=== PATIENT | female | born 1940 | race Two or more races ===

== ENCOUNTER 2019-03-24 10:50 | Inpatient (IN) | payer MEDICARE, OTHER ==
[~2019-03-24] VITALS: Ht 152.4 cm; Wt 91.6 kg
[2019-04-08 15:16] VITALS: BP 147/53
== END 2019-04-08 18:00 | disposition short-term general hospital (02) | DRG 56 ==
PROVIDERS: ADMIT Physical Medicine & Rehabilitation Pain Medicine; ATTEND Physical Medicine & Rehabilitation Pain Medicine
PROC: 02HV33Z Insertion of Infusion Device into Superior Vena Cava, Percutaneous Approach (ICD-10-PCS; principal; 2019-04-04)
PROC: B548ZZA Ultrasonography of Superior Vena Cava, Guidance (ICD-10-PCS; 2019-04-04)
DX: I69.398 Other sequelae of cerebral infarction (principal); I21.4 Non-ST elevation (NSTEMI) myocardial infarction; G93.41 Metabolic encephalopathy; I26.90 Septic pulmonary embolism without acute cor pulmonale; I13.0 Hypertensive heart and chronic kidney disease with heart failure and stage 1 through stage 4 chronic kidney disease, or unspecified chronic kidney disease; I50.32 Chronic diastolic (congestive) heart failure; N39.0 Urinary tract infection, site not specified; E46 Unspecified protein-calorie malnutrition; F33.2 Major depressive disorder, recurrent severe without psychotic features; K92.1 Melena; G93.49 Other encephalopathy; E03.9 Hypothyroidism, unspecified; E11.22 Type 2 diabetes mellitus with diabetic chronic kidney disease; E78.5 Hyperlipidemia, unspecified; I27.20 Pulmonary hypertension, unspecified; J45.909 Unspecified asthma, uncomplicated; I34.8 Other nonrheumatic mitral valve disorders; N18.9 Chronic kidney disease, unspecified; Z90.710 Acquired absence of both cervix and uterus; Z96.653 Presence of artificial knee joint, bilateral; Z90.49 Acquired absence of other specified parts of digestive tract; E11.649 Type 2 diabetes mellitus with hypoglycemia without coma; E11.65 Type 2 diabetes mellitus with hyperglycemia; E66.01 Morbid (severe) obesity due to excess calories; Z68.39 Body mass index [BMI] 39.0-39.9, adult; B96.89 Other specified bacterial agents as the cause of diseases classified elsewhere; R53.1 Weakness; B95.2 Enterococcus as the cause of diseases classified elsewhere; Z16.21 Resistance to vancomycin; D63.1 Anemia in chronic kidney disease; Z85.3 Personal history of malignant neoplasm of breast; Z79.02 Long term (current) use of antithrombotics/antiplatelets; Z79.82 Long term (current) use of aspirin; Z82.49 Family history of ischemic heart disease and other diseases of the circulatory system; Z91.81 History of falling
CPT/HCPCS: 36415; 70030-TC; 70450; 71045; 72170; 73551; 73590; 76770; 83550; 83690; 83735; 84100; 84443; 84480; 85025; 85730; 87040; 87077; 87086; 93005; 93307; 94640; 94660; 94664; A4217; A4663; J0696; J1644; J1650; J1815; J2020; J3590; J7050; J7060; J7512; J8499; Q9963

== ENCOUNTER 2019-04-08 18:16 | Inpatient (IN) | payer MEDICARE, OTHER ==
[~2019-04-08] VITALS: Ht 152.4 cm; Wt 93.4 kg
[2019-04-13 17:30] VITALS: BP 150/56
== END 2019-04-13 18:20 | DRG 291 ==
LOC: TELE3 18:16 → MEDSURG3 04-11 13:45
PROVIDERS: ADMIT Internal Medicine; ATTEND Internal Medicine Nephrology
PROC: 30233N1 Transfusion of Nonautologous Red Blood Cells into Peripheral Vein, Percutaneous Approach (ICD-10-PCS; principal; 2019-04-09)
DX: I13.0 Hypertensive heart and chronic kidney disease with heart failure and stage 1 through stage 4 chronic kidney disease, or unspecified chronic kidney disease (principal); I50.43 Acute on chronic combined systolic (congestive) and diastolic (congestive) heart failure; I33.0 Acute and subacute infective endocarditis; E43 Unspecified severe protein-calorie malnutrition; N39.0 Urinary tract infection, site not specified; Z68.41 Body mass index [BMI] 40.0-44.9, adult; G93.49 Other encephalopathy; N17.9 Acute kidney failure, unspecified; N18.9 Chronic kidney disease, unspecified; D63.1 Anemia in chronic kidney disease; D64.9 Anemia, unspecified; B95.2 Enterococcus as the cause of diseases classified elsewhere; Z16.21 Resistance to vancomycin; E11.65 Type 2 diabetes mellitus with hyperglycemia; E03.9 Hypothyroidism, unspecified; E11.22 Type 2 diabetes mellitus with diabetic chronic kidney disease; T14.8XXS Other injury of unspecified body region, sequela; W55.01XS Bitten by cat, sequela; E66.01 Morbid (severe) obesity due to excess calories; J45.909 Unspecified asthma, uncomplicated; Z85.3 Personal history of malignant neoplasm of breast; E11.649 Type 2 diabetes mellitus with hypoglycemia without coma; T38.0X5A Adverse effect of glucocorticoids and synthetic analogues, initial encounter; Y92.239 Unspecified place in hospital as the place of occurrence of the external cause; I69.898 Other sequelae of other cerebrovascular disease; B96.89 Other specified bacterial agents as the cause of diseases classified elsewhere; I27.20 Pulmonary hypertension, unspecified; Z86.79 Personal history of other diseases of the circulatory system; I34.2 Nonrheumatic mitral (valve) stenosis
CPT/HCPCS: 36415; 83735; 84100; 85025; 86850; 86900; 86901; 86920; 94640; 94660; G0378; J0696; J1815; J2020; J3490; J3590; J7050; J7060; J8499; P9016-BL; P9021

== ENCOUNTER 2019-04-13 18:17 | Inpatient (IN) | payer MEDICARE, OTHER ==
[~2019-04-13] VITALS: Ht 152.4 cm; Wt 87.1 kg
--- NOTE | 2019-04-13 18:15 | NUR ---
Admitted from Meds-surg 3rd floor for Endocarditis, UTI-VRE and CVA. Patient awake, alert x23-. With daughter at bedside. Patient informed of unit, therapy and oriented to call light light system. Not in any form of pain. No SOB or chest pains. Not in any form of distress. Resumed previous O2 at 2lpm/NC. Vital signs stable. Dr Clemente informed of admission.
[~2019-04-13 18:17] MED LIST: ALBU8.5H8 INH; ALEN70TA6 PO; AMLO10TA7 PO; ASPI-605 PO; ATOR10TA PO; BISA-79 PO; CALC-20 PO; CARV25TA PO; CEFT1FRO2 IV; CLON0.1T PO; CLOP75TA15 PO; CYCL30DR OP; DOCU100C36 PO; FERR325T28 PO; FLUT1DIS28 IH; FURO40TA5 PO; GABA600T12 PO; HYDR-4077 PO; INSU100V7 SQ; IPRA0.2S6 NEB; LEVO75TA7 PO; LISI10TA5 PO; PARO40TA4 PO; PRED20TA PO
[2019-04-13] MEDS ORDERED: MAGNESIUM HYDROXIDE 30 ML LIQUID UDC PO PRN (18:45)
[2019-04-13] MEDS ORDERED: DEXTROSE 50% 50 ML DISP.SYRIN IV PRN (18:45)
[2019-04-13 18:57] VITALS: BP 126/45
--- NOTE | 2019-04-13 19:00 | NUR ---
Dr. Mccray requested for medication reconciliation. Informed Dr that Hydralazine, Plavix, Prednisone and Restasis were on home medications but was not given in medical floor. Dr Mccray said to Hold medications until Dr Colon sees patient in AM.
--- NOTE | 2019-04-13 20:00 | NUR ---
Admitted patient from [facility] via bed accompanied by daughter. Awake and alert. No s/s of pain/discomforts presented. Routine admission care done. Plan of care initiated.
[2019-04-13] MEDS ORDERED: BISACODYL 5 MG TABLET.DR PO PRN (20:15)
[2019-04-13] MEDS ORDERED: CLOP75TA15 PO (20:33)
[2019-04-13 20:46] VITALS: BP 145/63
[2019-04-13] MEDS: ATORVASTATIN 10 MG TABLET PO SCH (21:11)
[2019-04-13] MEDS: CARVEDILOL 25 MG TABLET PO SCH (21:16)
[2019-04-13] MEDS: CALCIUM CARB/VITAMIN D 600-400 MG TABLET PO SCH (21:16)
[2019-04-13] MEDS: INSULIN GLARGINE,HUM 300 UNITS/3 ML CARTRIDGE SQ SCH (21:27)
[2019-04-13] MEDS: BLOOD SUGAR DIAGNOSTIC 1 EACH STRIP VI SCH (21:27)
[2019-04-13] MEDS: INSULIN REGULAR, HUMAN 300 UNITS/3 ML VIAL SQ PRN (21:29)
[2019-04-13] MEDS: CEFTRIAXONE 1 G in IV DEXTROSE 5% 50 ML IV SCH (22:26)
[2019-04-14] MEDS ORDERED: ALBUTEROL SULFATE 8 GM HFA.AER.AD INH SCH
[2019-04-14] MEDS: IPRATROPIUM BROMIDE 0.5 MG/2.5 ML NEBU NEB SCH ×4 (02:15→21:35)
[2019-04-14] MEDS: ALBUTEROL SULFATE 2.5 MG/3 ML NEBU NEB SCH ×4 (02:15→21:36)
[2019-04-14 05:29] VITALS: BP 166/65
[2019-04-14] MEDS: LEVOTHYROXINE SODIUM 75 MCG TABLET PO SCH (06:24)
[2019-04-14] MEDS: BLOOD SUGAR DIAGNOSTIC 1 EACH STRIP VI SCH ×4 (06:25→20:14)
--- NOTE | 2019-04-14 06:31 | NUR ---
Shift End Report: Slept well. No complaint presented. No s/s of hypo/hypertension, hypo/hyperglycemia noted. All needs attended and met. No significant event reported. Continue current rehab plan of care.
[2019-04-14] MEDS: ASPIRIN EC 81 MG TABLET.DR PO SCH (08:25)
[2019-04-14] MEDS: DOCUSATE SODIUM 100 MG CAPSULE PO SCH ×2 (08:25→16:57)
[2019-04-14] MEDS: AMLODIPINE 10 MG TABLET PO SCH (08:25)
[2019-04-14] MEDS: FLUTICASONE/VILANTEROL 1 EACH BLST.W.DEV INH SCH (08:25)
[2019-04-14] MEDS: FERROUS SULFATE 325 MG TABEC PO SCH ×2 (08:25→18:41)
[2019-04-14] MEDS: FUROSEMIDE 40 MG TABLET PO SCH (08:26)
[2019-04-14] MEDS: GABAPENTIN 300 MG CAPSULE PO SCH ×2 (08:26→16:55)
[2019-04-14] MEDS: CARVEDILOL 25 MG TABLET PO SCH ×2 (08:26→20:05)
[2019-04-14] MEDS: CALCIUM CARB/VITAMIN D 600-400 MG TABLET PO SCH ×2 (08:27→20:06)
[2019-04-14] MEDS: PAROXETINE HCL 20 MG TABLET PO SCH (08:27)
[2019-04-14] MEDS: LISINOPRIL 10 MG TABLET PO SCH ×2 (08:27→16:59)
[2019-04-14 08:46] VITALS: BP 172/70
[2019-04-14] MEDS ORDERED: CLOPIDOGREL 75 MG TABLET PO SCH (09:00)
[2019-04-14] MEDS ORDERED: FLUTICASONE/SALMETEROL 250/50 INHALER IH SCH (09:00)
[2019-04-14] MEDS: LINEZOLID 600 MG TABLET PO SCH ×2 (12:27→20:07)
[2019-04-14] MEDS: INSULIN REGULAR, HUMAN 300 UNIT/3 ML VIAL SQ PRN ×2 (12:30→17:00)
[2019-04-14 15:47] VITALS: BP 115/61
--- NOTE | 2019-04-14 19:10 | NUR ---
Patient calm and comfortable with no signs of distress; stable vital signs; medication compliant.
[2019-04-14] MEDS: ATORVASTATIN 10 MG TABLET PO SCH (20:04)
[2019-04-14 20:14] VITALS: BP 158/62
[2019-04-14] MEDS: INSULIN REGULAR, HUMAN 300 UNITS/3 ML VIAL SQ PRN (20:18)
[2019-04-14] MEDS: INSULIN GLARGINE,HUM 300 UNITS/3 ML CARTRIDGE SQ SCH (20:19)
--- NOTE | 2019-04-14 21:42 | NUR ---
awake alert and oriented x3-4 In good spirits. Daughter at bedside. VSS. Needs attended. Kept comfortable. Accucheck 208 @ 2100. 3units humalog given as coverage. Lantus also given as ordered. Fall precautions maintained. Call amos within reach. OOB to the BR with walker. Voiding freely. Left upper midline catheter intact, IV ABT given as scheduled. Needs attended. Compliant with meds. Fall precautions maintained. Siderails up for safety.
[2019-04-14] MEDS: CEFTRIAXONE 1 G in IV DEXTROSE 5% 50 ML IV SCH (22:39)
[2019-04-15] MEDS: ALBUTEROL SULFATE 2.5 MG/3 ML NEBU NEB SCH ×4 (02:03→20:18)
[2019-04-15] MEDS: IPRATROPIUM BROMIDE 0.5 MG/2.5 ML NEBU NEB SCH ×4 (02:03→20:18)
[2019-04-15 05:48] VITALS: BP 160/59
[2019-04-15] MEDS: LEVOTHYROXINE SODIUM 75 MCG TABLET PO SCH (06:07)
[2019-04-15] MEDS: BLOOD SUGAR DIAGNOSTIC 1 EACH STRIP VI SCH ×4 (06:33→21:00)
[2019-04-15 08:00] VITALS: BP 113/55
[2019-04-15] MEDS: DOCUSATE SODIUM 100 MG CAPSULE PO SCH ×2 (08:54→16:59)
[2019-04-15] MEDS: FLUTICASONE/VILANTEROL 1 EACH BLST.W.DEV INH SCH (08:54)
[2019-04-15] MEDS: ASPIRIN EC 81 MG TABLET.DR PO SCH (08:54)
[2019-04-15] MEDS: FUROSEMIDE 40 MG TABLET PO SCH (08:55)
[2019-04-15] MEDS: FERROUS SULFATE 325 MG TABEC PO SCH ×2 (08:55→16:59)
[2019-04-15] MEDS: GABAPENTIN 300 MG CAPSULE PO SCH ×2 (08:55→16:59)
[2019-04-15] MEDS: CALCIUM CARB/VITAMIN D 600-400 MG TABLET PO SCH ×2 (08:56→22:37)
[2019-04-15] MEDS: CARVEDILOL 25 MG TABLET PO SCH ×2 (08:58→22:36)
[2019-04-15] MEDS: LISINOPRIL 10 MG TABLET PO SCH ×2 (08:59→17:01)
[2019-04-15] MEDS: AMLODIPINE 10 MG TABLET PO SCH (09:00)
[2019-04-15] MEDS: PAROXETINE HCL 20 MG TABLET PO SCH (09:00)
[2019-04-15] MEDS: LINEZOLID 600 MG TABLET PO SCH ×2 (09:03→22:35)
--- NOTE | 2019-04-15 15:19 | NUR ---
INTERDISCIPLINARY TEAM CONFERENCE
[2019-04-15] MEDS: INSULIN REGULAR, HUMAN 300 UNIT/3 ML VIAL SQ PRN (17:00)
[2019-04-15 20:57] VITALS: BP 141/57
[2019-04-15] MEDS: ATORVASTATIN 10 MG TABLET PO SCH (22:36)
[2019-04-15] MEDS: INSULIN GLARGINE,HUM 300 UNITS/3 ML CARTRIDGE SQ SCH (22:53)
[2019-04-15] MEDS: INSULIN REGULAR, HUMAN 300 UNITS/3 ML VIAL SQ PRN (23:02)
[2019-04-15] MEDS: CEFTRIAXONE 1 G in IV DEXTROSE 5% 50 ML IV SCH (23:11)
[2019-04-16] MEDS: IPRATROPIUM BROMIDE 0.5 MG/2.5 ML NEBU NEB SCH ×4 (01:00→18:57)
[2019-04-16] MEDS: ALBUTEROL SULFATE 2.5 MG/3 ML NEBU NEB SCH ×4 (01:00→18:57)
[2019-04-16 05:54] VITALS: BP 133/68
[2019-04-16] MEDS: LEVOTHYROXINE SODIUM 75 MCG TABLET PO SCH (06:21)
[2019-04-16] MEDS: BLOOD SUGAR DIAGNOSTIC 1 EACH STRIP VI SCH ×4 (06:47→21:53)
--- NOTE | 2019-04-16 07:38 | NUR ---
Patient sleeping comfortably at this time, No acute distress noted. O2 NC in place at 2lpm with O2 Saturation of 95%. Breathing is even and unlabored. Patient noted with a Temp of 99. offered fluids and cooling measures. Due medications administered as ordered and scheduled. Blood sugar checked and within normal limit for patient. Pt. on continuous IV ATB therapy for VRE of urine with no adverse reaction noted. Monitored closely. Assisted with ADLs, needs attended, safety measures in place, call light at bed side, endorsed to next shift and will continue with care.
[2019-04-16 08:10] VITALS: BP 147/55
[2019-04-16] MEDS: ASPIRIN EC 81 MG TABLET.DR PO SCH (08:48)
[2019-04-16] MEDS: DOCUSATE SODIUM 100 MG CAPSULE PO SCH ×2 (08:48→16:56)
[2019-04-16] MEDS: FERROUS SULFATE 325 MG TABEC PO SCH ×2 (08:48→16:57)
[2019-04-16] MEDS: FLUTICASONE/VILANTEROL 1 EACH BLST.W.DEV INH SCH (08:48)
[2019-04-16] MEDS: CALCIUM CARB/VITAMIN D 600-400 MG TABLET PO SCH ×2 (08:48→21:41)
[2019-04-16] MEDS: GABAPENTIN 300 MG CAPSULE PO SCH ×2 (08:49→16:56)
[2019-04-16] MEDS: FUROSEMIDE 40 MG TABLET PO SCH (08:49)
[2019-04-16] MEDS: PAROXETINE HCL 20 MG TABLET PO SCH (08:49)
[2019-04-16] MEDS: LISINOPRIL 10 MG TABLET PO SCH ×2 (08:52→16:57)
[2019-04-16] MEDS: CARVEDILOL 25 MG TABLET PO SCH ×2 (08:53→21:42)
--- NOTE | 2019-04-16 11:22 | NUR ---
INDIVIDUALIZE PLAN OF CARE
[2019-04-16 15:53] VITALS: BP 160/68
[2019-04-16] MEDS: AMLODIPINE 10 MG TABLET PO SCH (16:55)
[2019-04-16 19:25] VITALS: BP 153/59
[2019-04-16] MEDS: ATORVASTATIN 10 MG TABLET PO SCH (21:41)
[2019-04-16] MEDS: INSULIN GLARGINE,HUM 300 UNITS/3 ML CARTRIDGE SQ SCH (21:55)
[2019-04-16] MEDS: INSULIN REGULAR, HUMAN 300 UNITS/3 ML VIAL SQ PRN (22:02)
--- NOTE | 2019-04-16 22:35 | NUR ---
Pt received awake, alert, and responsive on 2LPM Nasal cannula. Pt given Nebulizer treatments as ordered, Q6 with Albuterol/Atrovent. Treatments tolerated well, with no adverse reactions noted. Pt placed on CPAP 7 per MD orders. Pt tolerating settings well. No signs or symptoms of respiratory distress noted. Minimal leak achieved. Pt did not want to wear Protecta-Gel. Good skin integrity noted. No skin tears or breakdown. Alarm parameters checked, on and audible. CPAP plugged into red emergency outlet. Will continue to monitor Pt.
[2019-04-16] MEDS: CEFTRIAXONE 1 G in IV DEXTROSE 5% 50 ML IV SCH (23:32)
[2019-04-17] MEDS: ALBUTEROL SULFATE 2.5 MG/3 ML NEBU NEB SCH ×4 (01:34→19:04)
[2019-04-17] MEDS: IPRATROPIUM BROMIDE 0.5 MG/2.5 ML NEBU NEB SCH ×4 (01:35→19:04)
[2019-04-17 04:00] VITALS: BP 151/49
[2019-04-17] MEDS: LEVOTHYROXINE SODIUM 75 MCG TABLET PO SCH (06:47)
[2019-04-17 08:00] VITALS: BP 128/37
[2019-04-17] MEDS: FERROUS SULFATE 325 MG TABEC PO SCH ×2 (08:00→16:34)
[2019-04-17] MEDS: CALCIUM CARB/VITAMIN D 600-400 MG TABLET PO SCH ×2 (09:00→21:34)
[2019-04-17] MEDS: GABAPENTIN 300 MG CAPSULE PO SCH ×2 (09:00→16:33)
[2019-04-17] MEDS: AMLODIPINE 10 MG TABLET PO SCH (09:00)
[2019-04-17] MEDS: FUROSEMIDE 40 MG TABLET PO SCH ×2 (09:00→14:05)
[2019-04-17] MEDS: PAROXETINE HCL 20 MG TABLET PO SCH (09:00)
[2019-04-17] MEDS: CARVEDILOL 25 MG TABLET PO SCH ×3 (09:00→21:34)
[2019-04-17] MEDS: FLUTICASONE/VILANTEROL 1 EACH BLST.W.DEV INH SCH (09:00)
[2019-04-17] MEDS: DOCUSATE SODIUM 100 MG CAPSULE PO SCH ×2 (09:00→16:33)
[2019-04-17] MEDS: ASPIRIN EC 81 MG TABLET.DR PO SCH (09:00)
[2019-04-17] MEDS: LISINOPRIL 10 MG TABLET PO SCH ×3 (09:00→16:33)
[2019-04-17] MEDS: BLOOD SUGAR DIAGNOSTIC 1 EACH STRIP VI SCH ×3 (10:49→21:45)
--- NOTE | 2019-04-17 13:18 | NUR ---
in bed resting since this morning. allowing her to reccuperate from her hypoglycemic reaction this am. last blood sugar taken 1100 was 156. woke her for lunch now eating lunch now in bed feeing herself.
[2019-04-17 15:58] VITALS: BP 183/60
[2019-04-17] MEDS ORDERED: INSULIN GLARGINE,HUM 300 UNITS/3 ML CARTRIDGE SQ SCH (21:00)
[2019-04-17 21:03] VITALS: BP 157/54
[2019-04-17] MEDS: ATORVASTATIN 10 MG TABLET PO SCH (21:34)
[2019-04-17] MEDS: INSULIN REGULAR, HUMAN 300 UNITS/3 ML VIAL SQ PRN (21:55)
--- NOTE | 2019-04-17 22:10 | NUR ---
Pt placed on CPAP 7 per MD orders. Pt tolerating settings well. Pt did not want to wear Protecta-Gel. Good skin integrity noted, no redness or breakdown observed. Alarm parameters checked, functioning and audible. CPAP plugged into red emergency outlet. RN notified and aware. Will continue to monitor pt throughout shift.
[2019-04-17] MEDS: CEFTRIAXONE 1 G in IV DEXTROSE 5% 50 ML IV SCH (23:01)
[2019-04-18] MEDS: IPRATROPIUM BROMIDE 0.5 MG/2.5 ML NEBU NEB SCH ×4 (00:34→19:17)
[2019-04-18] MEDS: ALBUTEROL SULFATE 2.5 MG/3 ML NEBU NEB SCH ×4 (00:34→19:17)
[2019-04-18 04:00] VITALS: BP 150/68
[2019-04-18] MEDS: LEVOTHYROXINE SODIUM 75 MCG TABLET PO SCH (06:38)
[2019-04-18] MEDS: BLOOD SUGAR DIAGNOSTIC 1 EACH STRIP VI SCH ×4 (06:52→20:45)
[2019-04-18 08:11] VITALS: BP 166/68
[2019-04-18] MEDS ORDERED: FUROSEMIDE 40 MG/4 ML VIAL IV ONE (08:15)
[2019-04-18] MEDS ORDERED: ALBUTEROL SULFATE 2.5 MG/3 ML NEBU NEB PRN (08:15)
[2019-04-18] MEDS ORDERED: IPRATROPIUM BROMIDE 0.5 MG/2.5 ML NEBU NEB PRN (08:15)
--- NOTE | 2019-04-18 08:45 | NUR ---
Received patient asleep in bed. Mainly Setswana speaking but able to communicate basic needs. AAOx4. SOB noted with use of accessory muscles. AAOx4. Discussed patient's status last night with latrine cleaner RN. Councilman contacted. Seen by Dr. Lynne. Awaiting new orders. Midline on MAXIMILIANO intact and patent.
[2019-04-18] MEDS: GABAPENTIN 300 MG CAPSULE PO SCH ×2 (09:13→16:04)
[2019-04-18 09:14] LABS: ABG BASE EXCESS 8.3 mmol/L; ABG PCO2 47.6 mmHg (35.0-45.0); ABG PH 7.459 (7.350-7.450); ABG PO2 73.5 mmHg (75.0-100.0); ABG SITE RIGHT BRACHIAL; ABG TOTAL HEMOGLOBIN 8.4 G/dL (12.0-16.0); MetHb 0.3 % (0.0-1.5); O2Hb 93.5 % (94.0-97.0); VENT MODE Nasal Cannula
[2019-04-18] MEDS: ASPIRIN EC 81 MG TABLET.DR PO SCH (09:14)
[2019-04-18] MEDS: AMLODIPINE 10 MG TABLET PO SCH (09:14)
[2019-04-18] MEDS: FERROUS SULFATE 325 MG TABEC PO SCH ×2 (09:14→17:21)
[2019-04-18] MEDS: DOCUSATE SODIUM 100 MG CAPSULE PO SCH ×2 (09:14→16:07)
[2019-04-18] MEDS: LISINOPRIL 10 MG TABLET PO SCH ×2 (09:15→16:06)
[2019-04-18] MEDS: PAROXETINE HCL 20 MG TABLET PO SCH (09:15)
[2019-04-18] MEDS: CALCIUM CARB/VITAMIN D 600-400 MG TABLET PO SCH ×2 (09:16→20:35)
[2019-04-18] MEDS: FLUTICASONE/VILANTEROL 1 EACH BLST.W.DEV INH SCH (09:20)
[2019-04-18 09:29] LABS: EOSINOPHILS # (AUTO) 0.4 K/uL (0.0-0.7); EOSINOPHILS % (AUTO) 4.4 % (0.0-7.0); HEMOGLOBIN 7.9 g/dL (10.9-14.3); MONOCYTES # (AUTO) 0.7 K/uL (2.0-10.0)
[2019-04-18 09:36] LABS: BASOPHILS % (AUTO) 0.3 % (0.0-2.0); HEMATOCRIT 23.7 % (31.2-41.9); LYMPHOCYTES # (AUTO) 1.8 K/uL (20.0-40.0); LYMPHOCYTES % (AUTO) 19.4 % (20.5-51.5); MEAN CORPUSCULAR HEMOGLOBIN 31.5 uug (24.7-32.8); MEAN CORPUSCULAR HGB CONC 33 g/dL (32.3-35.6); MEAN CORPUSCULAR VOLUME 94.3 fL (75.5-95.3); NEUTROPHILS # (AUTO) 6.4 K/uL (1.8-8.9); NEUTROPHILS % (AUTO) 67.9 % (38.5-71.5); RED BLOOD CELL COUNT(AUTO) 2.51 MIL/uL (3.63-4.92)
[2019-04-18 09:37] LABS: PLATELET COUNT (AUTO) 205 K/uL (179-408); WHITE BLOOD COUNT (AUTO) 9.4 K/uL (3.8-11.8)
[2019-04-18 09:49] LABS: ALANINE AMINOTRANSFERASE 10 U/L (14-59); ALKALINE PHOSPHATASE 130 U/L (50-136); ASPARTATE AMINOTRANSFERASE 15 U/L (15-37); BILIRUBIN,TOTAL 0.4 mg/dL (0.2-1.0); CARBON DIOXIDE 34 mmol/L (21-32); CHLORIDE 106 mmol/L (98-107); CREATININE 1.4 mg/dL (0.6-1.3); GLUCOSE 72 mg/dL (74-106); MAGNESIUM 1.8 mg/dL (1.8-2.4); PHOSPHOROUS 3.1 mg/dL (2.5-4.9); POTASSIUM 3.4 mmol/L (3.5-5.1); TOTAL PROTEIN, SERUM 6.6 g/dL (6.4-8.2); UREA NITROGEN, BLOOD 25 mg/dL (7-18)
[2019-04-18] MEDS: CARVEDILOL 25 MG TABLET PO SCH ×2 (10:13→20:36)
--- NOTE | 2019-04-18 11:30 | NUR ---
Administered Lasix 40 mg IV push ONCE. Patient tolerating. Diuresing well. Patient no longer experiencing short of breath. Receiving 3L o2 via NC at this time. Participated in PT and tolerated well. Daughter at bedside. Safety and comfort measures implemented. Will continue to monitor closely.
[2019-04-18] MEDS: CLONIDINE HCL 0.1 MG TABLET PO PRN (16:06)
[2019-04-18 16:28] VITALS: BP 176/63
[2019-04-18] MEDS: INSULIN REGULAR, HUMAN 300 UNIT/3 ML VIAL SQ PRN (17:25)
[2019-04-18] MEDS: ATORVASTATIN 10 MG TABLET PO SCH (20:36)
[2019-04-18] MEDS: INSULIN GLARGINE,HUM 300 UNITS/3 ML CARTRIDGE SQ SCH (20:45)
[2019-04-18] MEDS: INSULIN REGULAR, HUMAN 300 UNITS/3 ML VIAL SQ PRN (20:47)
[2019-04-18 21:30] VITALS: BP 143/58
[2019-04-18] MEDS: CEFTRIAXONE 1 G in IV DEXTROSE 5% 50 ML IV SCH (22:53)
[2019-04-19] MEDS: IPRATROPIUM BROMIDE 0.5 MG/2.5 ML NEBU NEB SCH ×4 (01:15→22:42)
[2019-04-19] MEDS: ALBUTEROL SULFATE 2.5 MG/3 ML NEBU NEB SCH ×4 (01:15→22:42)
--- NOTE | 2019-04-19 04:30 | NUR ---
resting in bed upon initial rounds. awake alert and oriented x4. Patient on continous O2@ 3L via nasal cannula, pulse ox 96%. VSS. Bipap @ HS. Tolerated po meds well. Incontinent of bowel and bladder. BM noted (04/16) Fall precautions maintained. Siderails up for safety. Bed alarm on. Patient also on fall precautions. Accucheck @9pm was 231.right upper midline catheter intact, flushed and patent. Patient getting IV ABT through the left upper PICC line Tolerated well. No acute distress noted.
[2019-04-19 05:02] VITALS: BP 149/68
[2019-04-19] MEDS: LEVOTHYROXINE SODIUM 75 MCG TABLET PO SCH (06:24)
[2019-04-19] MEDS: BLOOD SUGAR DIAGNOSTIC 1 EACH STRIP VI SCH ×4 (06:34→21:04)
[2019-04-19 07:57] VITALS: BP 170/65
[2019-04-19] MEDS: INSULIN REGULAR, HUMAN 300 UNIT/3 ML VIAL SQ PRN ×3 (07:59→17:27)
[2019-04-19] MEDS: FERROUS SULFATE 325 MG TABEC PO SCH ×2 (08:01→17:09)
[2019-04-19] MEDS: AMLODIPINE 10 MG TABLET PO SCH (08:02)
[2019-04-19] MEDS: DOCUSATE SODIUM 100 MG CAPSULE PO SCH ×2 (08:02→17:09)
[2019-04-19] MEDS: ASPIRIN EC 81 MG TABLET.DR PO SCH (08:02)
[2019-04-19] MEDS: GABAPENTIN 300 MG CAPSULE PO SCH ×2 (08:02→17:09)
[2019-04-19] MEDS: FUROSEMIDE 40 MG TABLET PO SCH (08:02)
[2019-04-19] MEDS: CARVEDILOL 25 MG TABLET PO SCH ×2 (08:03→21:05)
[2019-04-19] MEDS: FLUTICASONE/VILANTEROL 1 EACH BLST.W.DEV INH SCH (08:03)
[2019-04-19] MEDS: CALCIUM CARB/VITAMIN D 600-400 MG TABLET PO SCH ×2 (08:03→21:05)
[2019-04-19] MEDS: LISINOPRIL 10 MG TABLET PO SCH ×2 (08:04→17:09)
[2019-04-19] MEDS: PAROXETINE HCL 20 MG TABLET PO SCH (08:04)
--- NOTE | 2019-04-19 08:45 | NUR ---
Received patient awake, alert x2-3, resting in bed with intact and patent PICC line over left upper arm, slushed accordingly. With O2 at 2LPM sating well at 99%. With some SOB, no chest pains noted. Not in any form of distress. Positioned in high pink's position. Instructed on breathing techniques. Will continue to monitor.
[2019-04-19] MEDS ORDERED: POTASSIUM CHLORIDE 20 MEQ TAB.PRT.SR PO ONE (09:30)
--- NOTE | 2019-04-19 11:00 | NUR ---
Up with occupational therapy, tolerated well. With relief of SOB. PICC line dressing changed, maintained sterile technique, no bleeding/ rashed over site noted. PICC line flushing well.
[2019-04-19 16:13] VITALS: BP 154/67
--- NOTE | 2019-04-19 19:50 | NUR ---
Received patient awake, alert and oriented x 3 with periodic forgetfulness. No c/o pain at this time. Isolation precautions maintained. No s/s of acute distress noted. Fall precautions maintained. Will continue to monitor.
[2019-04-19 19:56] VITALS: BP 160/52
[2019-04-19] MEDS: ATORVASTATIN 10 MG TABLET PO SCH (21:05)
[2019-04-19] MEDS: INSULIN GLARGINE,HUM 300 UNITS/3 ML CARTRIDGE SQ SCH (21:06)
[2019-04-19] MEDS: INSULIN REGULAR, HUMAN 300 UNITS/3 ML VIAL SQ PRN (21:09)
[2019-04-19] MEDS: CEFTRIAXONE 1 G in IV DEXTROSE 5% 50 ML IV SCH (23:07)
[2019-04-20] MEDS: IPRATROPIUM BROMIDE 0.5 MG/2.5 ML NEBU NEB SCH ×4 (02:07→20:04)
[2019-04-20] MEDS: ALBUTEROL SULFATE 2.5 MG/3 ML NEBU NEB SCH ×4 (02:07→20:04)
[2019-04-20] MEDS: ALENDRONATE SODIUM 70 MG TABLET PO SCH (05:41)
[2019-04-20] MEDS: BLOOD SUGAR DIAGNOSTIC 1 EACH STRIP VI SCH ×4 (05:43→21:39)
[2019-04-20 05:58] VITALS: BP 160/63
[2019-04-20] MEDS: LEVOTHYROXINE SODIUM 75 MCG TABLET PO SCH (06:18)
--- NOTE | 2019-04-20 07:04 | NUR ---
Patient slept throughout the shift. Prescribed medication given and pt tolerated it well. iv atb administered via left upper arm double lumen picc line. CPAP tolerated well throughout night and tolerated well. isolation precautions maintained. Pt shows no signs of acute distress. Safety and comfort provided. All needs are met. Will endorse to incoming nurse for continuity of care.
[2019-04-20 07:14] LABS: BASOPHILS % (AUTO) 0.3 % (0.0-2.0); EOSINOPHILS # (AUTO) 0.4 K/uL (0.0-0.7); EOSINOPHILS % (AUTO) 3.9 % (0.0-7.0); HEMATOCRIT 22.4 % (31.2-41.9); HEMOGLOBIN 7.6 g/dL (10.9-14.3); LYMPHOCYTES # (AUTO) 1.8 K/uL (20.0-40.0); LYMPHOCYTES % (AUTO) 19.4 % (20.5-51.5); MEAN CORPUSCULAR HGB CONC 34 g/dL (32.3-35.6); MEAN CORPUSCULAR VOLUME 96.8 fL (75.5-95.3); MONOCYTES # (AUTO) 0.9 K/uL (2.0-10.0); MONOCYTES % (AUTO) 9.4 % (0.0-11.0); NEUTROPHILS # (AUTO) 6.4 K/uL (1.8-8.9); PLATELET COUNT (AUTO) 221 K/uL (179-408); WHITE BLOOD COUNT (AUTO) 9.5 K/uL (3.8-11.8)
[2019-04-20 07:26] LABS: ALANINE AMINOTRANSFERASE 9 U/L (14-59); ALKALINE PHOSPHATASE 149 U/L (50-136); ASPARTATE AMINOTRANSFERASE 15 U/L (15-37); BILIRUBIN,TOTAL 0.4 mg/dL (0.2-1.0); CARBON DIOXIDE 32 mmol/L (21-32); CHLORIDE 102 mmol/L (98-107); CREATININE 1.5 mg/dL (0.6-1.3); GLUCOSE 179 mg/dL (74-106); MAGNESIUM 1.8 mg/dL (1.8-2.4); PHOSPHOROUS 3.4 mg/dL (2.5-4.9); POTASSIUM 3.6 mmol/L (3.5-5.1); TOTAL PROTEIN, SERUM 6.6 g/dL (6.4-8.2); UREA NITROGEN, BLOOD 31 mg/dL (7-18)
[2019-04-20 07:32] LABS: RED BLOOD CELL COUNT(AUTO) 2.31 MIL/uL (3.63-4.92)
[2019-04-20] MEDS: GABAPENTIN 300 MG CAPSULE PO SCH ×2 (08:42→17:45)
[2019-04-20] MEDS: FERROUS SULFATE 325 MG TABEC PO SCH ×2 (08:43→17:46)
[2019-04-20] MEDS: AMLODIPINE 10 MG TABLET PO SCH (08:43)
[2019-04-20] MEDS: ASPIRIN EC 81 MG TABLET.DR PO SCH (08:43)
[2019-04-20] MEDS: DOCUSATE SODIUM 100 MG CAPSULE PO SCH ×2 (08:43→17:46)
[2019-04-20] MEDS: FUROSEMIDE 40 MG TABLET PO SCH (08:43)
[2019-04-20] MEDS: PAROXETINE HCL 20 MG TABLET PO SCH (08:44)
[2019-04-20] MEDS: LISINOPRIL 10 MG TABLET PO SCH (08:45)
[2019-04-20] MEDS: CARVEDILOL 25 MG TABLET PO SCH ×2 (08:45→21:37)
[2019-04-20] MEDS: FLUTICASONE/VILANTEROL 1 EACH BLST.W.DEV INH SCH (08:46)
[2019-04-20] MEDS: CALCIUM CARB/VITAMIN D 600-400 MG TABLET PO SCH ×2 (08:46→21:31)
[2019-04-20] MEDS: INSULIN REGULAR, HUMAN 300 UNIT/3 ML VIAL SQ PRN ×3 (08:51→17:14)
[2019-04-20 09:17] VITALS: BP 181/58
--- NOTE | 2019-04-20 10:24 | NUR ---
rechecked vitals BP 140/56,pulse 69,resp 22,o2 sat at 2 liter 96%, patient noted with SOB, and wheezing, sitting upright, breathing tx administered by RT as ordered, inhaler administered as ordered, with some effectiveness, patient was able to tolerate all her meds, continue to monitor for SOB,and audible wheezing
[2019-04-20 11:00] VITALS: BP 140/56
[2019-04-20] MEDS ORDERED: methylPREDNISolone SOD SUCC 125 MG/2 ML VIAL IV SCH (11:45)
--- NOTE | 2019-04-20 12:52 | NUR ---
patient is examined by Dr Lynne and Dr Duenas with order to give lasix and steroids as ordered.
[2019-04-20] MEDS: FUROSEMIDE 40 MG/4 ML VIAL IV SCH ×2 (13:11→21:30)
[2019-04-20] MEDS: methylPREDNISolone SOD SUCC 40 MG/ML VIAL IV SCH ×2 (13:11→21:53)
--- NOTE | 2019-04-20 15:59 | NUR ---
PATIENT IS ALERT, ORIENTED X3, ROMANIAN SPEAKING, PATIENT PARTICIPATED WITH REHAB SERVICES, TOLERATED WELL, SOB AND AUDIBLE WHEEZING SUBSIDED, CONTINUOS ON O2 2 LITER VIA NASAL CANULA, PATIENT STATED SHE FEELS BETTER. KEPT CLEAN AND DRY, GOOD PERINEAL CARE PROVIDED, HAD BM TODAY.NO ACUTE DISTRESS NOTED AT THIS TIME, NOTED WITH +1 PITTING EDEMA TO BOTH LOWER EXTREMITIES. ELEVATED TOLERATED ON PILLOW, CONTINUE TO MONITOR
[2019-04-20] MEDS ORDERED: LISINOPRIL 10 MG TABLET PO SCH (17:00)
[2019-04-20] MEDS: LISINOPRIL 20 MG TABLET PO SCH (17:47)
[2019-04-20 19:40] VITALS: BP 105/75
[2019-04-20] MEDS ORDERED: methylPREDNISolone SOD SUCC 40 MG/ML VIAL IV SCH (21:00)
[2019-04-20] MEDS ORDERED: hydrALAZINE HCL 50 MG TABLET PO SCH (21:00)
[2019-04-20] MEDS: ATORVASTATIN 10 MG TABLET PO SCH (21:37)
[2019-04-20] MEDS: INSULIN GLARGINE,HUM 300 UNITS/3 ML CARTRIDGE SQ SCH (21:42)
[2019-04-20] MEDS: INSULIN REGULAR, HUMAN 300 UNITS/3 ML VIAL SQ PRN (21:46)
[2019-04-20] MEDS: CEFTRIAXONE 1 G in IV DEXTROSE 5% 50 ML IV SCH (23:15)
[2019-04-20] MEDS ORDERED: hydrALAZINE HCL 25 MG TABLET ONE (23:24)
--- NOTE | 2019-04-20 23:24 | NUR ---
Received patient in room sleeping easily arousable, Patient alert and oriented x3, Latvian speaking. on NC at 2lpm in NO acute distress, patient still noted with some wheezing on breathing treatment as ordered and effective. Blood sugar checked and wnl for patient. All due medications administered as ordered and scheduled and tolerated well. Patient monitored closely, skin kept clean and dry, call light left at bed side and will continue with care.
[2019-04-20] MEDS: hydrALAZINE HCL 25 MG TABLET PO SCH (23:30)
[2019-04-21] MEDS: ALBUTEROL SULFATE 2.5 MG/3 ML NEBU NEB SCH ×5 (01:26→23:43)
[2019-04-21] MEDS: IPRATROPIUM BROMIDE 0.5 MG/2.5 ML NEBU NEB SCH ×5 (01:26→23:44)
[2019-04-21 05:44] VITALS: BP 126/60
[2019-04-21] MEDS: methylPREDNISolone SOD SUCC 40 MG/ML VIAL IV SCH ×3 (05:55→21:46)
[2019-04-21] MEDS: LEVOTHYROXINE SODIUM 75 MCG TABLET PO SCH (06:00)
--- NOTE | 2019-04-21 07:00 | NUR ---
Patient A&O, No acute distress. Respiration is even and unlabored. Vital signs taken and stable for patient. Blood sugar checked and 412mg/dl, endorsed to next shift and will continue with care.
[2019-04-21] MEDS: BLOOD SUGAR DIAGNOSTIC 1 EACH STRIP VI SCH ×4 (07:09→22:00)
[2019-04-21 07:32] LABS: BASOPHILS % (AUTO) 0.1 % (0.0-2.0); HEMATOCRIT 22.9 % (31.2-41.9); HEMOGLOBIN 7.9 g/dL (10.9-14.3); LYMPHOCYTES # (AUTO) 0.9 K/uL (20.0-40.0); LYMPHOCYTES % (AUTO) 12.6 % (20.5-51.5); MEAN CORPUSCULAR HEMOGLOBIN 32.4 uug (24.7-32.8); MEAN CORPUSCULAR HGB CONC 35 g/dL (32.3-35.6); MEAN CORPUSCULAR VOLUME 94.1 fL (75.5-95.3); MONOCYTES # (AUTO) 0.2 K/uL (2.0-10.0); MONOCYTES % (AUTO) 2.3 % (0.0-11.0); NEUTROPHILS # (AUTO) 6.2 K/uL (1.8-8.9); PLATELET COUNT (AUTO) 205 K/uL (179-408); WHITE BLOOD COUNT (AUTO) 7.3 K/uL (3.8-11.8)
[2019-04-21] MEDS: INSULIN REGULAR, HUMAN 300 UNIT/3 ML VIAL SQ PRN ×3 (07:38→17:16)
[2019-04-21 07:41] LABS: RED BLOOD CELL COUNT(AUTO) 2.43 MIL/uL (3.63-4.92)
--- NOTE | 2019-04-21 07:42 | NUR ---
patient is laying in bed, awake, no sob, resp even nonlabored, not in any distress
--- NOTE | 2019-04-21 07:48 | NUR ---
patient blood sugar 391, insulin 15 units are administered, no distress noted, continue to monitor closely
[2019-04-21 07:51] LABS: CARBON DIOXIDE 34 mmol/L (21-32); CHLORIDE 101 mmol/L (98-107); CREATININE 1.5 mg/dL (0.6-1.3); PHOSPHOROUS 3.7 mg/dL (2.5-4.9); POTASSIUM 3.3 mmol/L (3.5-5.1); UREA NITROGEN, BLOOD 35 mg/dL (7-18)
[2019-04-21 07:55] LABS: GLUCOSE 420 mg/dL (74-106)
--- NOTE | 2019-04-21 08:00 | NUR ---
patient blood sugar result of [address] Gregory with order to increase Lantus to 16 units, continue to monitor, continue with moderate sliding scale. no acute distress noted at this time, no fruity breath noted.
[2019-04-21] MEDS: AMLODIPINE 10 MG TABLET PO SCH (08:19)
[2019-04-21] MEDS: DOCUSATE SODIUM 100 MG CAPSULE PO SCH ×2 (08:19→17:18)
[2019-04-21] MEDS: hydrALAZINE HCL 25 MG TABLET PO SCH ×2 (08:19→21:45)
[2019-04-21] MEDS: ASPIRIN EC 81 MG TABLET.DR PO SCH (08:19)
[2019-04-21 08:20] VITALS: BP 118/61
[2019-04-21] MEDS: FLUTICASONE/VILANTEROL 1 EACH BLST.W.DEV INH SCH (08:21)
[2019-04-21] MEDS: PAROXETINE HCL 20 MG TABLET PO SCH (08:21)
[2019-04-21] MEDS: CALCIUM CARB/VITAMIN D 600-400 MG TABLET PO SCH ×2 (08:21→21:45)
[2019-04-21] MEDS: FERROUS SULFATE 325 MG TABEC PO SCH ×2 (08:21→17:23)
[2019-04-21] MEDS: CARVEDILOL 25 MG TABLET PO SCH ×2 (08:22→21:45)
[2019-04-21] MEDS: LISINOPRIL 20 MG TABLET PO SCH ×2 (08:23→17:18)
[2019-04-21] MEDS ORDERED: POTASSIUM CHLORIDE 20 MEQ POWDER PACKET PO ONE (09:30)
[2019-04-21] MEDS ORDERED: POTASSIUM CHLORIDE 20 MEQ TAB.PRT.SR PO ONE ×2 (09:45→12:00)
[2019-04-21] MEDS: Z GUARD REMEDY PASTE 57 GM TUBE TOP PRN (10:09)
[2019-04-21] MEDS ORDERED: FUROSEMIDE 20 MG/2 ML VIAL IV ONE (10:15)
--- NOTE | 2019-04-21 16:02 | NUR ---
patient is alert, oriented x3-4, Irish speaking, no sob, resp even nonlabored, intermittent mild wheezing, on breathing tx, effective,skin warm and dry to touch, no acute distress noted, closely monitoring for blood sugar, continue to manage with sliding scale and diet, lasix IV administered as ordered, K replaced,
[2019-04-21] MEDS: CLONIDINE HCL 0.1 MG TABLET PO PRN (16:15)
[2019-04-21 16:26] VITALS: BP 177/58
[2019-04-21] MEDS: FUROSEMIDE 40 MG TABLET PO SCH (17:18)
[2019-04-21 20:59] VITALS: BP 150/47
[2019-04-21] MEDS ORDERED: INSULIN GLARGINE,HUM 300 UNITS/3 ML CARTRIDGE SQ SCH (21:00)
[2019-04-21] MEDS: ATORVASTATIN 10 MG TABLET PO SCH (21:44)
[2019-04-21] MEDS: INSULIN REGULAR, HUMAN 300 UNITS/3 ML VIAL SQ PRN (22:08)
[2019-04-21] MEDS: CEFTRIAXONE 1 G in IV DEXTROSE 5% 50 ML IV SCH (22:22)
[2019-04-22 06:00] VITALS: BP 149/44
[2019-04-22] MEDS: LEVOTHYROXINE SODIUM 75 MCG TABLET PO SCH (06:16)
[2019-04-22] MEDS: BLOOD SUGAR DIAGNOSTIC 1 EACH STRIP VI SCH ×4 (06:31→20:42)
[2019-04-22] MEDS: IPRATROPIUM BROMIDE 0.5 MG/2.5 ML NEBU NEB SCH ×4 (07:02→23:10)
[2019-04-22] MEDS: ALBUTEROL SULFATE 2.5 MG/3 ML NEBU NEB SCH ×4 (07:02→23:10)
[2019-04-22 07:06] LABS: BASOPHILS % (AUTO) 0.1 % (0.0-2.0); HEMATOCRIT 23.7 % (31.2-41.9); HEMOGLOBIN 7.7 g/dL (10.9-14.3); LYMPHOCYTES # (AUTO) 1.1 K/uL (20.0-40.0); LYMPHOCYTES % (AUTO) 9.2 % (20.5-51.5); MEAN CORPUSCULAR HEMOGLOBIN 30.8 uug (24.7-32.8); MEAN CORPUSCULAR HGB CONC 32 g/dL (32.3-35.6); MEAN CORPUSCULAR VOLUME 95.2 fL (75.5-95.3); MONOCYTES # (AUTO) 0.4 K/uL (2.0-10.0); MONOCYTES % (AUTO) 3.2 % (0.0-11.0); NEUTROPHILS # (AUTO) 10.7 K/uL (1.8-8.9); NEUTROPHILS % (AUTO) 87.5 % (38.5-71.5); PLATELET COUNT (AUTO) 225 K/uL (179-408)
--- NOTE | 2019-04-22 07:09 | NUR ---
118. patient slept well at night with CPAP, PICC line was flushed through both lumens. Good urine output. Comfort and safety measures are in place.
[2019-04-22 07:15] LABS: CARBON DIOXIDE 35 mmol/L (21-32); CHLORIDE 101 mmol/L (98-107); CREATININE 1.4 mg/dL (0.6-1.3); GLUCOSE 253 mg/dL (74-106); MAGNESIUM 2.1 mg/dL (1.8-2.4); PHOSPHOROUS 3.6 mg/dL (2.5-4.9); POTASSIUM 3.9 mmol/L (3.5-5.1); UREA NITROGEN, BLOOD 40 mg/dL (7-18)
[2019-04-22 07:24] LABS: RED BLOOD CELL COUNT(AUTO) 2.49 MIL/uL (3.63-4.92); WHITE BLOOD COUNT (AUTO) 12.2 K/uL (3.8-11.8)
[2019-04-22 08:00] VITALS: BP 174/76
[2019-04-22] MEDS: PAROXETINE HCL 20 MG TABLET PO SCH (08:20)
[2019-04-22] MEDS: ASPIRIN EC 81 MG TABLET.DR PO SCH (08:21)
[2019-04-22] MEDS: hydrALAZINE HCL 25 MG TABLET PO SCH ×2 (08:21→20:37)
[2019-04-22] MEDS: FERROUS SULFATE 325 MG TABEC PO SCH ×2 (08:21→17:15)
[2019-04-22] MEDS: AMLODIPINE 10 MG TABLET PO SCH (08:22)
[2019-04-22] MEDS: CARVEDILOL 25 MG TABLET PO SCH ×2 (08:22→20:38)
[2019-04-22] MEDS: CALCIUM CARB/VITAMIN D 600-400 MG TABLET PO SCH ×2 (08:22→20:38)
[2019-04-22] MEDS: LISINOPRIL 20 MG TABLET PO SCH ×2 (08:22→17:16)
[2019-04-22] MEDS: FUROSEMIDE 40 MG TABLET PO SCH ×2 (08:22→17:16)
[2019-04-22] MEDS: DOCUSATE SODIUM 100 MG CAPSULE PO SCH ×2 (08:22→17:16)
[2019-04-22] MEDS: methylPREDNISolone SOD SUCC 40 MG/ML VIAL IV SCH ×2 (08:23→20:33)
[2019-04-22] MEDS: FLUTICASONE/VILANTEROL 1 EACH BLST.W.DEV INH SCH (08:23)
[2019-04-22] MEDS ORDERED: FUROSEMIDE 40 MG/4 ML VIAL IV ONE (08:45)
[2019-04-22] MEDS: INSULIN REGULAR, HUMAN 300 UNIT/3 ML VIAL SQ PRN ×3 (11:31→20:56)
[2019-04-22 11:53] VITALS: BP 174/68
--- NOTE | 2019-04-22 12:47 | NUR ---
INTERDISCIPLINARY TEAM CONFERENCE
[2019-04-22 13:27] VITALS: BP 169/72
[2019-04-22 15:35] VITALS: BP 161/71
[2019-04-22] MEDS ORDERED: CEFEPIME HCL 1 G in IV DEXTROSE 5% 50 ML IV SCH (18:45)
--- NOTE | 2019-04-22 19:44 | NUR ---
CLINICAL PHARMACY NOTE:VANCOMYCIN DOSING Request for vancomycin dosing 78 y/o female 152.4cm 93.4 KG for documented infection Temp 981, BUN 40 Scr 1.4 WBC 1.2 also on Merrem Start vancomycin 1gm q24h. Estimated trough 14.82. Will order trough level prior to 4th dose. Will continue to monitor
[2019-04-22 20:18] VITALS: BP 127/70
[2019-04-22] MEDS: VANCOMYCIN IV 1,000 MG in IV DEXTROSE 5% 250 ML IV SCH (20:29)
[2019-04-22] MEDS: ATORVASTATIN 10 MG TABLET PO SCH (20:36)
[2019-04-22] MEDS: INSULIN GLARGINE,HUM 300 UNITS/3 ML CARTRIDGE SQ SCH (20:57)
[2019-04-22] MEDS ORDERED: MEROPENEM 0.5 G in IV NORMAL SALINE 50 ML IV SCH ×2 (21:00→22:00)
[2019-04-22] MEDS ORDERED: LINEZOLID 600 MG TABLET PO SCH (21:00)
[2019-04-22] MEDS: MEROPENEM 500 MG in IV NORMAL SALINE 50 ML IV SCH (21:29)
--- NOTE | 2019-04-23 04:11 | NUR ---
awake alert and oriented upon initial rounds. In good spirits. Daughter in to visit. On continous O2 @ 2L via nasal cannula. pulse ox 94%. Respiratory treatments given by therapist as scheduled and as needed. Lungs diminished. Left PICC intact flushed and patent, received Vancomycin and Merrem this shift. Tolerated well. No ill effects noted. OOB to the BR with moderate assist. SOB noted on exertion. BM noted this shift. Voiding as well. Denies any pain nor any discomfort. VSS. Due meds given as scheduled. Will monitor patient. Bipap at HS.
[2019-04-23 04:54] VITALS: BP 127/70
[2019-04-23] MEDS: LEVOTHYROXINE SODIUM 75 MCG TABLET PO SCH (06:34)
[2019-04-23] MEDS: BLOOD SUGAR DIAGNOSTIC 1 EACH STRIP VI SCH ×4 (06:38→20:33)
[2019-04-23] MEDS: IPRATROPIUM BROMIDE 0.5 MG/2.5 ML NEBU NEB SCH ×3 (07:34→21:32)
[2019-04-23] MEDS: ALBUTEROL SULFATE 2.5 MG/3 ML NEBU NEB SCH ×3 (07:34→21:32)
--- NOTE | 2019-04-23 08:00 | NUR ---
Received pt. resting in bed alert oriented x 3. IV in L upper arm double lumen PICC line. Pt. denies SOB/ difficulty breathing. Pt. denies pain or discomfort. Pt. on 2 L NC. Safety measures in place. Call light within reach. Will continue to monitor pt.
[2019-04-23] MEDS: FERROUS SULFATE 325 MG TABEC PO SCH ×2 (08:28→17:28)
[2019-04-23] MEDS: FUROSEMIDE 40 MG TABLET PO SCH ×2 (08:29→17:21)
[2019-04-23] MEDS: MEROPENEM 500 MG in IV NORMAL SALINE 50 ML IV SCH ×2 (08:29→21:32)
[2019-04-23] MEDS: DOCUSATE SODIUM 100 MG CAPSULE PO SCH ×2 (08:29→17:21)
[2019-04-23 08:32] VITALS: BP 190/86
[2019-04-23] MEDS: hydrALAZINE HCL 25 MG TABLET PO SCH ×2 (08:33→20:27)
[2019-04-23] MEDS: ASPIRIN EC 81 MG TABLET.DR PO SCH (08:33)
[2019-04-23] MEDS: methylPREDNISolone SOD SUCC 40 MG/ML VIAL IV SCH ×2 (08:34→20:24)
[2019-04-23] MEDS: PAROXETINE HCL 20 MG TABLET PO SCH (08:34)
[2019-04-23] MEDS: INSULIN REGULAR, HUMAN 300 UNIT/3 ML VIAL SQ PRN ×3 (08:43→17:06)
[2019-04-23] MEDS: AMLODIPINE 10 MG TABLET PO SCH (08:47)
[2019-04-23] MEDS: LISINOPRIL 20 MG TABLET PO SCH ×2 (08:47→17:21)
[2019-04-23] MEDS: CARVEDILOL 25 MG TABLET PO SCH ×2 (10:04→20:28)
[2019-04-23] MEDS: CALCIUM CARB/VITAMIN D 600-400 MG TABLET PO SCH ×2 (10:05→20:29)
[2019-04-23 10:27] VITALS: BP 128/46
--- NOTE | 2019-04-23 10:30 | NUR ---
Pt. had elevated BP at start of shift. BP 192/85. After all AM medication which included hypertension medication pt. blood pressure at 10 AM 169/55 and at 10:30 BP 128/46.
[2019-04-23] MEDS: FLUTICASONE/VILANTEROL 1 EACH BLST.W.DEV INH SCH (11:03)
--- NOTE | 2019-04-23 12:40 | NUR ---
CLINICAL PHARMACY NOTE:VANCOMYCIN DOSING To continue vancomycin dosing 78 y/o female 152.4cm 93.4 KG for documented infection Temp 97.7, BUN 40 (04/22) Scr 1.4 (04/22) WBC 1.2 (04/22) also on Merrem Will continue vancomycin 1gm q24h. Estimated trough 14.82. 2nd dose today at 2000. Will order trough level prior to 4th dose. Will continue to monitor
[2019-04-23 15:22] LABS: BASOPHILS # (AUTO) 0.1 K/uL (0.0-8.0); BASOPHILS % (AUTO) 0.5 % (0.0-2.0); HEMOGLOBIN 8.8 g/dL (10.9-14.3); LYMPHOCYTES # (AUTO) 0.9 K/uL (20.0-40.0); LYMPHOCYTES % (AUTO) 6.2 % (20.5-51.5); MEAN CORPUSCULAR HEMOGLOBIN 30.4 uug (24.7-32.8); MEAN CORPUSCULAR HGB CONC 33 g/dL (32.3-35.6); MEAN CORPUSCULAR VOLUME 93.7 fL (75.5-95.3); MONOCYTES # (AUTO) 0.9 K/uL (2.0-10.0); MONOCYTES % (AUTO) 6.4 % (0.0-11.0); NEUTROPHILS # (AUTO) 12.1 K/uL (1.8-8.9); NEUTROPHILS % (AUTO) 86.9 % (38.5-71.5); PLATELET COUNT (AUTO) 287 K/uL (179-408); RED BLOOD CELL COUNT(AUTO) 2.88 MIL/uL (3.63-4.92); WHITE BLOOD COUNT (AUTO) 13.9 K/uL (3.8-11.8)
[2019-04-23 15:32] LABS: CARBON DIOXIDE 33 mmol/L (21-32); CHLORIDE 99 mmol/L (98-107); CREATININE 1.5 mg/dL (0.6-1.3); GLUCOSE 249 mg/dL (74-106); POTASSIUM 3.6 mmol/L (3.5-5.1); UREA NITROGEN, BLOOD 48 mg/dL (7-18)
--- NOTE | 2019-04-23 15:59 | NUR ---
Around 2:30 PM pt. had unwitnessed fall in bathroom. Pt. denies any pain. Pt. is stable. Vital signs stable. Director, Locomotive Driver made aware. Incident report completed. Doctor Mahendra notified of pt.'s fall. No new orders. Will continue to monitor pt.
[2019-04-23 16:51] VITALS: BP 149/68
--- NOTE | 2019-04-23 18:43 | NUR ---
Pt. resting in bed AAO Throughout shift pt. had no acute distress or SOB. Pt. denies pain. VSS after scheduled hypertension medication was given. Pt compliant with all routine medication administration and cooperative with therapies as offered. Bed in locked and lowest position with bed alarm on. Call light within reach. All comfort and safety needs met promptly this shift. Will continue to monitor and endorse to oncoming warehouse shift supervisor.
[2019-04-23] MEDS: VANCOMYCIN IV 1,000 MG in IV DEXTROSE 5% 250 ML IV SCH (19:43)
[2019-04-23] MEDS: ATORVASTATIN 10 MG TABLET PO SCH (20:27)
[2019-04-23] MEDS: INSULIN REGULAR, HUMAN 300 UNITS/3 ML VIAL SQ PRN (20:36)
[2019-04-23] MEDS: INSULIN GLARGINE,HUM 300 UNITS/3 ML CARTRIDGE SQ SCH (20:37)
[2019-04-23 21:09] VITALS: BP 171/68
[2019-04-24] MEDS: IPRATROPIUM BROMIDE 0.5 MG/2.5 ML NEBU NEB SCH ×4 (01:14→19:36)
[2019-04-24] MEDS: ALBUTEROL SULFATE 2.5 MG/3 ML NEBU NEB SCH ×4 (01:14→19:37)
[2019-04-24 05:10] VITALS: BP 175/66
--- NOTE | 2019-04-24 05:48 | NUR ---
aaox3-4 on continous O2 @ 2L via nasal cannula. needs attended. VSS left upper PICC line intact both ports line opens flushes without difficulty. On ABT therapy, endocarditis. Tolerated well. No side effects noted. Continent of bowel and bladder.
[2019-04-24] MEDS: LEVOTHYROXINE SODIUM 75 MCG TABLET PO SCH (06:19)
[2019-04-24] MEDS: BLOOD SUGAR DIAGNOSTIC 1 EACH STRIP VI SCH ×4 (06:43→20:43)
[2019-04-24 08:00] VITALS: BP 185/74
[2019-04-24] MEDS: FERROUS SULFATE 325 MG TABEC PO SCH ×2 (08:04→17:31)
[2019-04-24] MEDS: methylPREDNISolone SOD SUCC 40 MG/ML VIAL IV SCH ×2 (08:05→20:44)
[2019-04-24] MEDS: MEROPENEM 500 MG in IV NORMAL SALINE 50 ML IV SCH ×2 (08:05→22:54)
[2019-04-24] MEDS: hydrALAZINE HCL 25 MG TABLET PO SCH (08:06)
[2019-04-24] MEDS: CALCIUM CARB/VITAMIN D 600-400 MG TABLET PO SCH ×2 (08:06→20:21)
[2019-04-24] MEDS: DOCUSATE SODIUM 100 MG CAPSULE PO SCH ×2 (08:07→17:31)
[2019-04-24] MEDS: ASPIRIN EC 81 MG TABLET.DR PO SCH (08:08)
[2019-04-24] MEDS: FUROSEMIDE 40 MG TABLET PO SCH ×2 (08:08→17:31)
[2019-04-24] MEDS: CARVEDILOL 25 MG TABLET PO SCH ×2 (08:08→20:22)
[2019-04-24] MEDS: PAROXETINE HCL 20 MG TABLET PO SCH (08:09)
[2019-04-24] MEDS: AMLODIPINE 10 MG TABLET PO SCH (08:09)
[2019-04-24] MEDS: LISINOPRIL 20 MG TABLET PO SCH ×2 (08:10→17:32)
--- NOTE | 2019-04-24 08:35 | NUR ---
CLINICAL PHARMACY NOTE:VANCOMYCIN DOSING To continue vancomycin dosing 78 y/o female 152.4cm 93.4 KG for documented infection Temp 98.2, BUN 40 (04/22) Scr 1.4 (04/22) WBC 1.2 (04/22) Will continue vancomycin 1gm q24h. Estimated trough 14.82. 3rd dose today at 1999. Will order trough level prior to 4th dose (not ordered yet). Will continue to monitor
[2019-04-24 08:41] LABS: BASOPHILS # (AUTO) 0.1 K/uL (0.0-8.0); BASOPHILS % (AUTO) 0.6 % (0.0-2.0); EOSINOPHILS % (AUTO) 0.1 % (0.0-7.0); HEMATOCRIT 25.7 % (31.2-41.9); HEMOGLOBIN 8.5 g/dL (10.9-14.3); LYMPHOCYTES # (AUTO) 1.6 K/uL (20.0-40.0); LYMPHOCYTES % (AUTO) 12.3 % (20.5-51.5); MEAN CORPUSCULAR HEMOGLOBIN 31.2 uug (24.7-32.8); MEAN CORPUSCULAR HGB CONC 33 g/dL (32.3-35.6); MEAN CORPUSCULAR VOLUME 94.4 fL (75.5-95.3); MONOCYTES # (AUTO) 1.2 K/uL (2.0-10.0); NEUTROPHILS # (AUTO) 10.1 K/uL (1.8-8.9); PLATELET COUNT (AUTO) 274 K/uL (179-408); RED BLOOD CELL COUNT(AUTO) 2.73 MIL/uL (3.63-4.92)
[2019-04-24 08:44] LABS: CREATININE 1.3 mg/dL (0.6-1.3); POTASSIUM 3.1 mmol/L (3.5-5.1)
[2019-04-24] MEDS: FLUTICASONE/VILANTEROL 1 EACH BLST.W.DEV INH SCH (09:15)
[2019-04-24 09:41] LABS: BAND % (MANUAL) 2 % (0-10); LYMPHOCYTES % (MANUAL) 18 % (20-40); MONOCYTES % (MANUAL) 8 % (2-10); NEUTROPHILS % (MANUAL) 72 % (42-75)
[2019-04-24] MEDS: INSULIN REGULAR, HUMAN 300 UNIT/3 ML VIAL SQ PRN ×2 (11:51→17:31)
[2019-04-24] MEDS ORDERED: POTASSIUM CHLORIDE 20 MEQ TAB.PRT.SR PO ONE (12:15)
[2019-04-24 16:46] VITALS: BP 173/0
[2019-04-24 19:35] VITALS: BP 180/67
[2019-04-24] MEDS: ATORVASTATIN 10 MG TABLET PO SCH (20:22)
[2019-04-24] MEDS: hydrALAZINE HCL 50 MG TABLET PO SCH (20:22)
[2019-04-24] MEDS: INSULIN GLARGINE,HUM 300 UNITS/3 ML CARTRIDGE SQ SCH (20:36)
[2019-04-24] MEDS: INSULIN REGULAR, HUMAN 300 UNITS/3 ML VIAL SQ PRN (20:41)
[2019-04-24] MEDS ORDERED: hydrALAZINE HCL 25 MG TABLET PO SCH (21:00)
[2019-04-24] MEDS: VANCOMYCIN IV 1,000 MG in IV DEXTROSE 5% 250 ML IV SCH (21:06)
[2019-04-25] MEDS: IPRATROPIUM BROMIDE 0.5 MG/2.5 ML NEBU NEB SCH ×4 (01:05→19:30)
[2019-04-25] MEDS: ALBUTEROL SULFATE 2.5 MG/3 ML NEBU NEB SCH ×4 (01:05→19:30)
--- NOTE | 2019-04-25 04:22 | NUR ---
Patient received in bed, AAO x3. Not in acute distress or SOB. Able to make needs known. On 2 L O2 via NC. No complain of pain. Kinyarwanda speaking. Picc line on her left upper, no sign of inflammation. All due medication given and well tolerated. IV antibiotics administered. Accucheck @2100 BS: 247 covered by 4 units insulin based on the sliding scale. All needs attended promptly. Physical assessment done. Fall prevention observed. Safety measures maintained. Bed in low and lock position, alarm on, side rails up x2 for safety. Educated patient to use call light. Call light and frequently used items within reach. Continue to monitor and will endorse to the day shift nurse accordingly.
[2019-04-25] MEDS: LEVOTHYROXINE SODIUM 75 MCG TABLET PO SCH (06:00)
[2019-04-25 06:23] VITALS: BP 136/73
[2019-04-25] MEDS: BLOOD SUGAR DIAGNOSTIC 1 EACH STRIP VI SCH ×4 (06:40→21:32)
--- NOTE | 2019-04-25 08:20 | NUR ---
CLINICAL PHARMACY NOTE:VANCOMYCIN DOSING S: To continue vancomycin dosing 78 y/o female for documented infection (per ID note for for concern of HCAP) O: Temp 98.3, BUN 43 (04/24) Scr 1.3 (04/24) WBC 13 (04/24) ht 152.4cm wt 93.4 KG Plan Will continue same dose of vancomycin 1gm IVPB q24h for today. Will order trough level prior to 4th dose (ordered for today at 1930).Pharmacy shall review the level when available and adjust the dose if needed. Will continue to monitor Addendum: 04/25/19 at 2012 by CHUNG RUBY VANCOMYCIN TROUGH LEVEL 13.8 CONTINUE SAME DOSE OF VANCOMYCIN 1GM Q24H
[2019-04-25] MEDS: FUROSEMIDE 40 MG TABLET PO SCH ×2 (08:24→17:21)
[2019-04-25] MEDS: ASPIRIN EC 81 MG TABLET.DR PO SCH (08:24)
[2019-04-25] MEDS: FERROUS SULFATE 325 MG TABEC PO SCH ×2 (08:24→17:22)
[2019-04-25] MEDS: AMLODIPINE 10 MG TABLET PO SCH (08:24)
[2019-04-25] MEDS: DOCUSATE SODIUM 100 MG CAPSULE PO SCH ×2 (08:24→17:21)
[2019-04-25] MEDS: hydrALAZINE HCL 50 MG TABLET PO SCH ×2 (08:24→21:29)
[2019-04-25] MEDS: FLUTICASONE/VILANTEROL 1 EACH BLST.W.DEV INH SCH (08:25)
[2019-04-25] MEDS: methylPREDNISolone SOD SUCC 40 MG/ML VIAL IV SCH (08:25)
[2019-04-25] MEDS: CALCIUM CARB/VITAMIN D 600-400 MG TABLET PO SCH ×2 (08:26→21:28)
[2019-04-25] MEDS: PAROXETINE HCL 20 MG TABLET PO SCH (08:26)
[2019-04-25] MEDS: LISINOPRIL 20 MG TABLET PO SCH ×2 (08:27→17:00)
[2019-04-25] MEDS: CARVEDILOL 25 MG TABLET PO SCH ×2 (08:27→21:29)
[2019-04-25] MEDS: MEROPENEM 500 MG in IV NORMAL SALINE 50 ML IV SCH ×2 (08:28→21:57)
[2019-04-25 08:29] VITALS: BP 177/55
[2019-04-25] MEDS: INSULIN REGULAR, HUMAN 300 UNIT/3 ML VIAL SQ PRN ×3 (08:30→17:29)
--- NOTE | 2019-04-25 08:45 | NUR ---
Received patient, awake ,alert x2-3. With periods of forgetfulness. Intact and patent left upper arm midline, flushing well. Not in any form of distress with O2 at 2lpm/NC. Denies any pain.
--- NOTE | 2019-04-25 13:00 | NUR ---
With family at bed side. Tolerated therapy well. No pain noted. Tapered O2 at 1lpm. Tolerating well. No SOB or chest pains noted sating at 99%.
[2019-04-25 16:32] VITALS: BP 117/51
--- NOTE | 2019-04-25 19:30 | NUR ---
Alert and oriented x 3-4. Received in bed, resting. On 0.5 L of O2 via NC. Left sided PICC line intact and flushable. On ATB for pneumonia and endocarditis. Side rails up bilaterally. Call light and frequently used times within reach. Will continue to monitor.
[2019-04-25 20:06] VITALS: BP 130/42
[2019-04-25] MEDS: VANCOMYCIN IV 1,000 MG in IV DEXTROSE 5% 250 ML IV SCH (20:23)
[2019-04-25] MEDS: ATORVASTATIN 10 MG TABLET PO SCH (21:28)
[2019-04-25] MEDS: INSULIN REGULAR, HUMAN 300 UNITS/3 ML VIAL SQ PRN (21:31)
[2019-04-25] MEDS: INSULIN GLARGINE,HUM 300 UNITS/3 ML CARTRIDGE SQ SCH (21:32)
--- NOTE | 2019-04-25 22:25 | NUR ---
Due to MD order pt placed on CPAP7. No s/s of respiratory distress noted. CPAP settings pt tolerated well. Alarms checked and reset. RN aware.
--- NOTE | 2019-04-26 00:50 | NUR ---
[facility] RN notified RT that she took pt off CPAP per pt's request.
[2019-04-26] MEDS: ALBUTEROL SULFATE 2.5 MG/3 ML NEBU NEB SCH ×4 (01:40→19:14)
[2019-04-26] MEDS: IPRATROPIUM BROMIDE 0.5 MG/2.5 ML NEBU NEB SCH ×4 (01:40→19:14)
[2019-04-26 05:17] VITALS: BP 161/43
[2019-04-26] MEDS: LEVOTHYROXINE SODIUM 75 MCG TABLET PO SCH (06:16)
[2019-04-26] MEDS: BLOOD SUGAR DIAGNOSTIC 1 EACH STRIP VI SCH ×4 (06:37→20:34)
[2019-04-26 06:42] LABS: BASOPHILS # (AUTO) 0.1 K/uL (0.0-8.0); BASOPHILS % (AUTO) 0.3 % (0.0-2.0); EOSINOPHILS # (AUTO) 0.3 K/uL (0.0-0.7); EOSINOPHILS % (AUTO) 1.6 % (0.0-7.0); HEMATOCRIT 29.7 % (31.2-41.9); HEMOGLOBIN 9.7 g/dL (10.9-14.3); LYMPHOCYTES # (AUTO) 2.3 K/uL (20.0-40.0); LYMPHOCYTES % (AUTO) 13.1 % (20.5-51.5); MEAN CORPUSCULAR HEMOGLOBIN 30.4 uug (24.7-32.8); MEAN CORPUSCULAR HGB CONC 33 g/dL (32.3-35.6); MEAN CORPUSCULAR VOLUME 93.4 fL (75.5-95.3); MONOCYTES # (AUTO) 1.6 K/uL (2.0-10.0); MONOCYTES % (AUTO) 8.7 % (0.0-11.0); NEUTROPHILS # (AUTO) 13.7 K/uL (1.8-8.9); NEUTROPHILS % (AUTO) 76.3 % (38.5-71.5); PLATELET COUNT (AUTO) 324 K/uL (179-408); RED BLOOD CELL COUNT(AUTO) 3.18 MIL/uL (3.63-4.92); WHITE BLOOD COUNT (AUTO) 17.9 K/uL (3.8-11.8)
[2019-04-26] MEDS: Z GUARD REMEDY PASTE 57 GM TUBE TOP PRN (06:48)
[2019-04-26 06:51] LABS: CHLORIDE 101 mmol/L (98-107); CREATININE 1.3 mg/dL (0.6-1.3); GLUCOSE 76 mg/dL (74-106); MAGNESIUM 1.9 mg/dL (1.8-2.4); PHOSPHOROUS 3.4 mg/dL (2.5-4.9); UREA NITROGEN, BLOOD 41 mg/dL (7-18)
[2019-04-26 06:53] LABS: CARBON DIOXIDE 40 mmol/L (21-32); POTASSIUM 2.7 mmol/L (3.5-5.1)
[2019-04-26 07:30] VITALS: BP 156/63
[2019-04-26 07:41] LABS: EOSINOPHILS % (MANUAL) 1 % (0-8); LYMPHOCYTES % (MANUAL) 12 % (20-40); MONOCYTES % (MANUAL) 14 % (2-10); NEUTROPHILS % (MANUAL) 73 % (42-75)
[2019-04-26] MEDS ORDERED: methylPREDNISolone SOD SUCC 40 MG/ML VIAL IV SCH (09:00)
[2019-04-26] MEDS: FUROSEMIDE 40 MG TABLET PO SCH ×2 (09:01→17:23)
[2019-04-26] MEDS: POTASSIUM CHLORIDE 20 MEQ TAB.PRT.SR PO SCH ×2 (09:01→17:23)
[2019-04-26] MEDS: DOCUSATE SODIUM 100 MG CAPSULE PO SCH ×2 (09:02→17:23)
[2019-04-26] MEDS: ASPIRIN EC 81 MG TABLET.DR PO SCH (09:02)
[2019-04-26] MEDS: FERROUS SULFATE 325 MG TABEC PO SCH ×2 (09:02→17:23)
[2019-04-26] MEDS: AMLODIPINE 10 MG TABLET PO SCH (09:03)
[2019-04-26] MEDS: CARVEDILOL 25 MG TABLET PO SCH ×2 (09:05→20:30)
[2019-04-26] MEDS: hydrALAZINE HCL 50 MG TABLET PO SCH ×2 (09:05→20:28)
[2019-04-26] MEDS: PAROXETINE HCL 20 MG TABLET PO SCH (09:06)
[2019-04-26] MEDS: LISINOPRIL 20 MG TABLET PO SCH ×2 (09:06→17:27)
[2019-04-26] MEDS: CALCIUM CARB/VITAMIN D 600-400 MG TABLET PO SCH ×2 (09:07→20:29)
[2019-04-26] MEDS: FLUTICASONE/VILANTEROL 1 EACH BLST.W.DEV INH SCH (09:08)
[2019-04-26] MEDS: MEROPENEM 500 MG in IV NORMAL SALINE 50 ML IV SCH ×2 (09:09→21:34)
--- NOTE | 2019-04-26 09:43 | NUR ---
CLINICAL PHARMACY NOTE:VANCOMYCIN DOSING S: To continue vancomycin dosing 78 y/o female for documented infection (per ID note for for concern of HCAP) O: Temp 97.8, BUN 41 Scr 1.3 WBC 17.9 Vanco trough level on 04/25 at 1930: 13.8 ht 152.4cm wt 93.4 KG Plan Since wt 93.4 kg, WBC increased & vanco trough level is 13.8 (dx HCAP), will change dose to 1500mg IV q38h for predicted vanco trough level of 15.8 mcg/ml at steady state. 1st dose today at 1999. Will order trough level prior to 4th dose (not yet ordered). Will continue to monitor
[2019-04-26] MEDS: INSULIN REGULAR, HUMAN 300 UNIT/3 ML VIAL SQ PRN ×2 (12:37→17:26)
[2019-04-26 16:00] VITALS: BP 113/65
[2019-04-26 19:43] VITALS: BP 116/59
[2019-04-26] MEDS: VANCOMYCIN IV 1,500 MG in IV DEXTROSE 5% 500 ML IV SCH (19:50)
[2019-04-26] MEDS: ATORVASTATIN 10 MG TABLET PO SCH (20:28)
[2019-04-26] MEDS: INSULIN REGULAR, HUMAN 300 UNITS/3 ML VIAL SQ PRN (20:37)
[2019-04-26] MEDS: INSULIN GLARGINE,HUM 300 UNITS/3 ML CARTRIDGE SQ SCH (20:38)
--- NOTE | 2019-04-26 22:14 | NUR ---
contact isolation maintained for VRE urine. Left double lumen PICC line intact, flushed and patent. Patient receiving vancomycin and Merrem. No ill effects noted. VSS Incontinent of bowel and bladder. No BM this shift. On continous O2 @ 0.5L via nasal cannula. pulse ox 96%. No respiratory distress noted. Denies any short of breath or any discomfort. Will monitor patient. VSS.Kept comfortable. Fall precautions maintained. Siderails up for safety. Respiratory treatments given as scheduled.
[2019-04-27] MEDS: ALBUTEROL SULFATE 2.5 MG/3 ML NEBU NEB SCH ×4 (00:40→19:55)
[2019-04-27] MEDS: IPRATROPIUM BROMIDE 0.5 MG/2.5 ML NEBU NEB SCH ×4 (00:40→19:55)
[2019-04-27 04:55] VITALS: BP 176/62
[2019-04-27] MEDS: LEVOTHYROXINE SODIUM 75 MCG TABLET PO SCH (06:25)
[2019-04-27] MEDS: ALENDRONATE SODIUM 70 MG TABLET PO SCH (06:25)
[2019-04-27] MEDS: BLOOD SUGAR DIAGNOSTIC 1 EACH STRIP VI SCH ×4 (06:30→21:24)
--- NOTE | 2019-04-27 07:00 | NUR ---
Patient alert and oriented x 2, able to express needs in own language. In No acute distress. On O2 NC at 0.5lpm saturating at 97%. Vital signs taken and stable. Blood sugar checked and within normal limit for patient. Due medications administered as ordered and scheduled. Needs attended, patient for discharge today. Safety measures in place, call light left at bed side and will continue with care.
[2019-04-27 07:25] LABS: BASOPHILS # (AUTO) 0.1 K/uL (0.0-8.0); BASOPHILS % (AUTO) 0.4 % (0.0-2.0); EOSINOPHILS # (AUTO) 0.2 K/uL (0.0-0.7); EOSINOPHILS % (AUTO) 1.7 % (0.0-7.0); HEMATOCRIT 25.3 % (31.2-41.9); HEMOGLOBIN 8.6 g/dL (10.9-14.3); LYMPHOCYTES % (AUTO) 16.6 % (20.5-51.5); MEAN CORPUSCULAR HEMOGLOBIN 32.1 uug (24.7-32.8); MEAN CORPUSCULAR HGB CONC 34 g/dL (32.3-35.6); MEAN CORPUSCULAR VOLUME 94.3 fL (75.5-95.3); MONOCYTES % (AUTO) 8.8 % (0.0-11.0); NEUTROPHILS # (AUTO) 8.6 K/uL (1.8-8.9); NEUTROPHILS % (AUTO) 72.5 % (38.5-71.5); PLATELET COUNT (AUTO) 213 K/uL (179-408); RED BLOOD CELL COUNT(AUTO) 2.68 MIL/uL (3.63-4.92); WHITE BLOOD COUNT (AUTO) 11.8 K/uL (3.8-11.8)
[2019-04-27 07:37] LABS: CARBON DIOXIDE 37 mmol/L (21-32); CHLORIDE 101 mmol/L (98-107); CREATININE 1.3 mg/dL (0.6-1.3); GLUCOSE 102 mg/dL (74-106); MAGNESIUM 1.9 mg/dL (1.8-2.4); PHOSPHOROUS 3.5 mg/dL (2.5-4.9); UREA NITROGEN, BLOOD 35 mg/dL (7-18)
[2019-04-27] MEDS: DOCUSATE SODIUM 100 MG CAPSULE PO SCH ×2 (08:21→17:16)
[2019-04-27] MEDS: FUROSEMIDE 40 MG TABLET PO SCH ×2 (08:22→17:17)
[2019-04-27] MEDS: ASPIRIN EC 81 MG TABLET.DR PO SCH (08:22)
[2019-04-27] MEDS: FERROUS SULFATE 325 MG TABEC PO SCH ×2 (08:22→17:16)
[2019-04-27] MEDS: MEROPENEM 500 MG in IV NORMAL SALINE 50 ML IV SCH ×2 (08:25→21:04)
[2019-04-27] MEDS: AMLODIPINE 10 MG TABLET PO SCH (08:26)
[2019-04-27] MEDS: hydrALAZINE HCL 50 MG TABLET PO SCH ×2 (08:26→21:23)
[2019-04-27] MEDS: LISINOPRIL 20 MG TABLET PO SCH ×2 (08:27→17:20)
[2019-04-27] MEDS: CARVEDILOL 25 MG TABLET PO SCH ×2 (08:29→21:24)
[2019-04-27] MEDS: FLUTICASONE/VILANTEROL 1 EACH BLST.W.DEV INH SCH (08:29)
[2019-04-27] MEDS: CALCIUM CARB/VITAMIN D 600-400 MG TABLET PO SCH ×2 (08:30→21:04)
[2019-04-27] MEDS: PAROXETINE HCL 20 MG TABLET PO SCH (08:30)
--- NOTE | 2019-04-27 08:35 | NUR ---
Patient awake, alert, oriented x 2-3 not in any form of distress with O2 at 0.5 LPM via NC. She denies any pain or discomfort at this time. PICC line on left upper arm in place and patent, no noted signs of infection. Due medications administered and tolerated well. Assisted with her needs. Call light placed within reach.
[2019-04-27 09:00] VITALS: BP 179/64
[2019-04-27] MEDS ORDERED: predniSONE 20 MG TABLET PO SCH (09:00)
[2019-04-27] MEDS: POTASSIUM CHLORIDE 20 MEQ TAB.PRT.SR PO SCH ×2 (09:28→17:20)
[2019-04-27 10:00] VITALS: BP 133/46
--- NOTE | 2019-04-27 11:38 | NUR ---
CLINICAL PHARMACY NOTE:VANCOMYCIN DOSING S: To continue vancomycin dosing 78 y/o female for documented infection (per ID note for for concern of HCAP) O: Temp 98.8, BUN 35 Scr 1.3 WBC 11.8 Vanco trough level on 04/25 at 1930: 13.8 ht 152.4cm wt 93.4 KG Plan Since wt 93.4 kg, WBC increased & vanco trough level is 13.8 (dx HCAP), Vancomycin was changed to 1500mg IV q38h for predicted vanco trough level of 15.8 mcg/ml at steady state. 2nd dose tomorrow at 1000. Will order trough level prior to 4th dose (not yet ordered). Will continue to monitor.
[2019-04-27] MEDS: INSULIN REGULAR, HUMAN 300 UNIT/3 ML VIAL SQ PRN ×2 (12:28→17:23)
[2019-04-27 16:09] VITALS: BP 139/43
[2019-04-27] MEDS: ATORVASTATIN 10 MG TABLET PO SCH (21:04)
[2019-04-27 21:07] VITALS: BP 108/54
[2019-04-27] MEDS: INSULIN GLARGINE,HUM 300 UNITS/3 ML CARTRIDGE SQ SCH (21:26)
[2019-04-27] MEDS: INSULIN REGULAR, HUMAN 300 UNITS/3 ML VIAL SQ PRN (21:30)
[2019-04-28] MEDS: IPRATROPIUM BROMIDE 0.5 MG/2.5 ML NEBU NEB SCH ×4 (00:34→20:41)
[2019-04-28] MEDS: ALBUTEROL SULFATE 2.5 MG/3 ML NEBU NEB SCH ×4 (00:34→20:42)
[2019-04-28 05:16] VITALS: BP 150/61
[2019-04-28] MEDS: LEVOTHYROXINE SODIUM 75 MCG TABLET PO SCH (06:40)
[2019-04-28] MEDS: BLOOD SUGAR DIAGNOSTIC 1 EACH STRIP VI SCH ×4 (06:55→21:40)
--- NOTE | 2019-04-28 07:00 | NUR ---
Patient alert and oriented x 2, able to express needs in own language. In No acute distress. On O2 NC at 0.5lpm saturating at 97%. Vital signs taken and stable. Blood sugar checked and within normal limit for patient. PICC line on Left upper arm intact and patent. Due medications administered as ordered and scheduled and tolerated well. Needs attended, patient for discharge today. Safety measures in place, call light left at bed side and will continue with care.
[2019-04-28] MEDS ORDERED: predniSONE 20 MG TABLET PO SCH (08:00)
--- NOTE | 2019-04-28 08:48 | NUR ---
CLINICAL PHARMACY NOTE:VANCOMYCIN DOSING S: To continue vancomycin dosing 78 y/o female for documented infection (per ID note for for concern of HCAP) O: Temp 98.6, BUN 35 (04/27) Scr 1.3 (04/27) WBC 11.8 (04/27) Vanco trough level on 04/25 at 1930: 13.8 ht 152.4cm wt 93.4 KG Plan Since wt 93.4 kg, WBC increased & vanco trough level is 13.8 (dx HCAP), Vancomycin was changed to 1500mg IV q38h for predicted vanco trough level of 15.8 mcg/ml at steady state. 2nd dose today at 1000. Will order trough level prior to 4th dose (not yet ordered). Will continue to monitor.
[2019-04-28] MEDS: FLUTICASONE/VILANTEROL 1 EACH BLST.W.DEV INH SCH (08:50)
[2019-04-28] MEDS: DOCUSATE SODIUM 100 MG CAPSULE PO SCH ×2 (08:50→17:11)
[2019-04-28] MEDS: AMLODIPINE 10 MG TABLET PO SCH (08:51)
[2019-04-28] MEDS: predniSONE 10 MG TABLET PO SCH (08:51)
[2019-04-28] MEDS: ASPIRIN EC 81 MG TABLET.DR PO SCH (08:51)
[2019-04-28] MEDS: LISINOPRIL 20 MG TABLET PO SCH ×2 (08:52→17:12)
[2019-04-28] MEDS: PAROXETINE HCL 20 MG TABLET PO SCH (08:52)
[2019-04-28] MEDS: CALCIUM CARB/VITAMIN D 600-400 MG TABLET PO SCH ×2 (08:53→21:33)
[2019-04-28] MEDS: CARVEDILOL 25 MG TABLET PO SCH ×2 (08:53→21:34)
[2019-04-28] MEDS: FERROUS SULFATE 325 MG TABEC PO SCH ×2 (09:04→17:12)
[2019-04-28] MEDS: POTASSIUM CHLORIDE 20 MEQ TAB.PRT.SR PO SCH ×2 (09:04→17:12)
[2019-04-28] MEDS: FUROSEMIDE 40 MG TABLET PO SCH ×2 (09:04→17:12)
[2019-04-28] MEDS: MEROPENEM 500 MG in IV NORMAL SALINE 50 ML IV SCH (09:05)
[2019-04-28] MEDS: hydrALAZINE HCL 50 MG TABLET PO SCH ×2 (09:05→21:34)
[2019-04-28 10:56] VITALS: BP 175/61
--- NOTE | 2019-04-28 11:24 | NUR ---
Report and Pt received this morning. pt assisted to bathroom for toileting, BM & voiding x1. VSS, daily weight taken. Pt assessed no acute distress, O2 saturation retaken following return from bathroom 95% on RA, made aware and request to monitor on RA without 0.5L O2. Plan for today discussed included expected D/C later today. Pt compliant with routine medication administration and therapies as offered. Denies pain and discomfort at this time. Double lumen PICC line left upper arm flushed, patent and first IV antibiotic medication hung as scheduled. All safety and comfort measures in place. Will continue to monitor.
[2019-04-28] MEDS: VANCOMYCIN IV 1,500 MG in IV DEXTROSE 5% 500 ML IV SCH (12:17)
[2019-04-28] MEDS: INSULIN REGULAR, HUMAN 300 UNIT/3 ML VIAL SQ PRN ×2 (12:18→17:25)
--- NOTE | 2019-04-28 14:40 | NUR ---
Message left with VIP line for Dr. Colon regarding negative preliminary VRE results, request for Bipap, and d/c orders. Will continue to monitor Pt for safety and follow up as needed.
[2019-04-28 16:30] VITALS: BP 126/52
--- NOTE | 2019-04-28 16:30 | NUR ---
Urinary preliminary negative results received, notified and isolation for VRE of urine removed. Will remove isolation cart shortly. Pt teaching provided.
--- NOTE | 2019-04-28 18:54 | NUR ---
[facility], should receive tomorrow. Pt cleared to stay an additional night by telephonic nurse case manager and warehouse shift supervisor. Pt family visiting at bedside. blood sugar prior to dinner 427, 15 units of insulin coverage provided per moderate sliding scale. Pt asymptomatic at this time and in good spirits. BS rechecked following washing hands, 468, no distress noted. Md made aware, no new orders. Pt teaching provided regarding lunch, diet, and steroids ability to falsely alter BS. All comfort and safety needs met. Call light within reach. Ambulance notified of d/c change and placed on will call for tomorrow. Will continue to monitor and endorse to oncoming manufacturing supervisor 2nd shift.
[2019-04-28] MEDS: ATORVASTATIN 10 MG TABLET PO SCH (21:34)
[2019-04-28] MEDS: INSULIN REGULAR, HUMAN 300 UNITS/3 ML VIAL SQ PRN (21:42)
[2019-04-28] MEDS: INSULIN GLARGINE,HUM 300 UNITS/3 ML CARTRIDGE SQ SCH (21:43)
[2019-04-28 22:10] VITALS: BP 131/53
[2019-04-29] MEDS: IPRATROPIUM BROMIDE 0.5 MG/2.5 ML NEBU NEB SCH ×3 (01:16→13:56)
[2019-04-29] MEDS: ALBUTEROL SULFATE 2.5 MG/3 ML NEBU NEB SCH ×3 (01:17→13:56)
[2019-04-29 04:22] VITALS: BP 147/47
--- NOTE | 2019-04-29 05:21 | NUR ---
Patient received in bed, AAO x3. Not in acute distress or SOB. Able to make needs known. On 2 L O2 via NC. No complain of pain. Ukrainian speaking. Family at the bedside. Picc line on her left upper, no sign of inflammation. All due medication given and well tolerated. Accucheck @2100 BS: 294 covered by 6 units insulin based on the sliding scale. All needs attended promptly. Physical assessment done. Fall prevention observed. Safety measures maintained. Bed in low and lock position, alarm on, side rails up x2 for safety. Call light and frequently used items within reach. Continue to monitor and will endorse to the day shift nurse accordingly.
[2019-04-29] MEDS: LEVOTHYROXINE SODIUM 75 MCG TABLET PO SCH (06:20)
[2019-04-29] MEDS: BLOOD SUGAR DIAGNOSTIC 1 EACH STRIP VI SCH ×3 (06:38→16:56)
[2019-04-29 07:30] VITALS: BP 172/67
[2019-04-29] MEDS: FUROSEMIDE 40 MG TABLET PO SCH ×2 (12:21→17:01)
[2019-04-29] MEDS: ASPIRIN EC 81 MG TABLET.DR PO SCH (12:21)
[2019-04-29] MEDS: FLUTICASONE/VILANTEROL 1 EACH BLST.W.DEV INH SCH (12:22)
[2019-04-29] MEDS: DOCUSATE SODIUM 100 MG CAPSULE PO SCH ×2 (12:22→17:02)
[2019-04-29] MEDS: FERROUS SULFATE 325 MG TABEC PO SCH ×2 (12:22→17:01)
[2019-04-29] MEDS: hydrALAZINE HCL 50 MG TABLET PO SCH (12:22)
[2019-04-29] MEDS: PAROXETINE HCL 20 MG TABLET PO SCH (12:23)
[2019-04-29] MEDS: predniSONE 10 MG TABLET PO SCH (12:23)
[2019-04-29] MEDS: LISINOPRIL 20 MG TABLET PO SCH ×2 (12:24→17:02)
[2019-04-29] MEDS: CALCIUM CARB/VITAMIN D 600-400 MG TABLET PO SCH (12:24)
[2019-04-29] MEDS: AMLODIPINE 10 MG TABLET PO SCH (12:25)
[2019-04-29] MEDS: CARVEDILOL 25 MG TABLET PO SCH (12:26)
--- NOTE | 2019-04-29 12:28 | NUR ---
CLINICAL PHARMACY NOTE:VANCOMYCIN DOSING S: To continue vancomycin dosing 78 y/o female for documented infection (per ID note for for concern of HCAP) O: Temp 98.3, BUN 35 (04/27) Scr 1.3 (04/27) WBC 11.8 (04/27) Vanco trough level on 04/25 at 1930: 13.8 ht 152.4cm wt 93.4 KG Plan Will continue vanco 1500mg IV q38h for predicted vanco trough level of 15.8 mcg/ml at steady state. 3rd dose tomorrow 04/30 early am at 0000. Will order trough level prior to 4th dose (not yet ordered). Will continue to monitor.
[2019-04-29 16:46] VITALS: BP 124/41
[2019-04-29 17:02] VITALS: BP 124/41
[2019-04-29] MEDS: INSULIN REGULAR, HUMAN 300 UNIT/3 ML VIAL SQ PRN (17:04)
--- NOTE | 2019-04-29 18:45 | NUR ---
d/c to [facility] via ambulance. daughter at bedside will drive over to [facility]. d/c order and pics on file. cpap settings face mask and tubing sent to [facility].
== END 2019-04-29 18:10 | DRG 280 ==
PROVIDERS: ADMIT Physical Medicine & Rehabilitation Pain Medicine; ATTEND Physical Medicine & Rehabilitation Pain Medicine
PROC: 5A09357 Assistance with Respiratory Ventilation, Less than 24 Consecutive Hours, Continuous Positive Airway Pressure (ICD-10-PCS; principal; 2019-04-22)
DX: I33.0 Acute and subacute infective endocarditis (principal); I26.90 Septic pulmonary embolism without acute cor pulmonale; I21.A1 Myocardial infarction type 2; I50.33 Acute on chronic diastolic (congestive) heart failure; J18.9 Pneumonia, unspecified organism; G93.40 Encephalopathy, unspecified; I13.0 Hypertensive heart and chronic kidney disease with heart failure and stage 1 through stage 4 chronic kidney disease, or unspecified chronic kidney disease; N39.0 Urinary tract infection, site not specified; A28.0 Pasteurellosis; N17.9 Acute kidney failure, unspecified; J45.901 Unspecified asthma with (acute) exacerbation; J44.0 Chronic obstructive pulmonary disease with (acute) lower respiratory infection; I69.398 Other sequelae of cerebral infarction; D64.9 Anemia, unspecified; E03.9 Hypothyroidism, unspecified; E11.22 Type 2 diabetes mellitus with diabetic chronic kidney disease; N18.9 Chronic kidney disease, unspecified; B95.2 Enterococcus as the cause of diseases classified elsewhere; Z16.21 Resistance to vancomycin; B96.89 Other specified bacterial agents as the cause of diseases classified elsewhere; D63.8 Anemia in other chronic diseases classified elsewhere; E11.40 Type 2 diabetes mellitus with diabetic neuropathy, unspecified; E11.649 Type 2 diabetes mellitus with hypoglycemia without coma; E78.5 Hyperlipidemia, unspecified; E87.6 Hypokalemia; F32.9 Major depressive disorder, single episode, unspecified; G47.33 Obstructive sleep apnea (adult) (pediatric); I05.2 Rheumatic mitral stenosis with insufficiency; I67.2 Cerebral atherosclerosis; I70.0 Atherosclerosis of aorta; I27.20 Pulmonary hypertension, unspecified; Z91.81 History of falling; Z79.899 Other long term (current) drug therapy; Z96.653 Presence of artificial knee joint, bilateral; Z88.8 Allergy status to other drugs, medicaments and biological substances; E11.65 Type 2 diabetes mellitus with hyperglycemia
CPT/HCPCS: 36415; 36600; 70450; 71045; 82785; 83735; 84100; 85025; 87086; 93307; 94640; 94660; A4663; G0480-TC; J0696; J1815; J1940; J2185; J2920; J3370; J3490; J3590; J7040; J7060; J7512; J8499

== ENCOUNTER 2019-05-07 14:00 | Inpatient (IN) | payer MEDICARE, OTHER ==
[~2019-05-07] VITALS: Ht 157.5 cm; Wt 94.3 kg
[2019-05-07] MEDS ORDERED: IV NORMAL SALINE 1000 ML BAG IV ONE (14:30)
[2019-05-07 14:44] LABS: BASOPHILS % (AUTO) 0.4 % (0.0-2.0); EOSINOPHILS # (AUTO) 0.1 K/uL (0.0-0.7); EOSINOPHILS % (AUTO) 1.3 % (0.0-7.0); HEMATOCRIT 23.9 % (31.2-41.9); HEMOGLOBIN 8.1 g/dL (10.9-14.3); LYMPHOCYTES # (AUTO) 1.1 K/uL (20.0-40.0); MEAN CORPUSCULAR HEMOGLOBIN 32.3 uug (24.7-32.8); MEAN CORPUSCULAR HGB CONC 34 g/dL (32.3-35.6); MEAN CORPUSCULAR VOLUME 95.9 fL (75.5-95.3); MONOCYTES # (AUTO) 0.4 K/uL (2.0-10.0); NEUTROPHILS # (AUTO) 8.4 K/uL (1.8-8.9); NEUTROPHILS % (AUTO) 83.3 % (38.5-71.5); PLATELET COUNT (AUTO) 149 K/uL (179-408); WHITE BLOOD COUNT (AUTO) 10.1 K/uL (3.8-11.8)
[2019-05-07 14:53] LABS: CARBON DIOXIDE 30 mmol/L (21-32); CHLORIDE 104 mmol/L (98-107); CREATININE 1.8 mg/dL (0.6-1.3); POTASSIUM 4.2 mmol/L (3.5-5.1); UREA NITROGEN, BLOOD 32 mg/dL (7-18)
[2019-05-07 14:55] LABS: GLUCOSE 330 mg/dL (74-106)
[2019-05-07 14:59] LABS: ALANINE AMINOTRANSFERASE 24 U/L (14-59); ALKALINE PHOSPHATASE 126 U/L (50-136); ASPARTATE AMINOTRANSFERASE 25 U/L (15-37); BILIRUBIN,DIRECT 0.1 mg/dL (0.0-0.2); BILIRUBIN,TOTAL 0.3 mg/dL (0.2-1.0); LIPASE 162 U/L (73-393); TOTAL PROTEIN, SERUM 5.6 g/dL (6.4-8.2)
[2019-05-07] MEDS ORDERED: MAGN400O6 PO (15:20)
[2019-05-07] MEDS ORDERED: IPRA0.2S48 IH (15:20)
[2019-05-07] MEDS ORDERED: POTA20TA83 PO (15:20)
[2019-05-07] MEDS ORDERED: PARO40TA PO (15:20)
[2019-05-07] MEDS ORDERED: BLOO-140 IN (15:20)
[2019-05-07] MEDS ORDERED: INSU100V7 SQ (15:20)
[2019-05-07] MEDS ORDERED: FLUT1BLS IH (15:20)
[2019-05-07] MEDS ORDERED: PRED-170 PEG (15:20)
[2019-05-07] MEDS ORDERED: CALC-1095 PO (15:20)
[2019-05-07] MEDS ORDERED: ALBU2.5V38 IH (15:20)
[2019-05-07] MEDS ORDERED: LEVO75TA PO (15:20)
[2019-05-07] MEDS ORDERED: ACET325T53 PO (15:20)
[2019-05-07] MEDS ORDERED: ACET500C4 PO (15:20)
[2019-05-07] MEDS ORDERED: LISI-603 PO (15:20)
[2019-05-07] MEDS ORDERED: HYDROMORPHONE 2 MG/1 ML DISP.SYRIN ONE (15:54)
[2019-05-07] MEDS ORDERED: ONDANSETRON 4 MG/2 ML VIAL ONE (15:54)
[2019-05-07 15:55] VITALS: BP 130/43
[2019-05-07] MEDS ORDERED: HYDROMORPHONE 2 MG/1 ML DISP.SYRIN IV PRN (16:00)
[2019-05-07] MEDS ORDERED: ONDANSETRON 4 MG/2 ML VIAL IV PRN (16:00)
[2019-05-07] MEDS ORDERED: BISACODYL 5 MG TABLET.DR PO PRN (16:30)
[2019-05-07] MEDS ORDERED: HYDROCODONE/APAP 5-325MG TABLET PO PRN (16:30)
[2019-05-07] MEDS ORDERED: DEXTROSE 50% 50 ML DISP.SYRIN IV PRN (16:30)
[2019-05-07] MEDS ORDERED: ACETAMINOPHEN ES 500 MG TABLET PO PRN (16:30)
[2019-05-07] MEDS ORDERED: CLONIDINE HCL 0.1 MG TABLET PO PRN (16:30)
[2019-05-07] MEDS ORDERED: MAGNESIUM HYDROXIDE 30 ML LIQUID UDC PO PRN (16:30)
[2019-05-07] MEDS ORDERED: GABAPENTIN 300 MG CAPSULE PO ONE (17:00)
[2019-05-07] MEDS ORDERED: ALBU2.5V13 NEB (17:02)
[2019-05-07] MEDS ORDERED: FERR325T28 PO (17:05)
[2019-05-07] MEDS ORDERED: AMLO10TA4 PO (17:13)
[2019-05-07] MEDS: DOCUSATE SODIUM 100 MG CAPSULE PO SCH (17:34)
[2019-05-07] MEDS: CARVEDILOL 25 MG TABLET PO SCH (17:35)
[2019-05-07] MEDS ORDERED: ALBUTEROL SULFATE 8 GM HFA.AER.AD INH SCH (18:00)
[2019-05-07] MEDS: BLOOD SUGAR DIAGNOSTIC 1 EACH STRIP VI SCH (18:37)
[2019-05-07] MEDS: INSULIN REGULAR, HUMAN 300 UNIT/3 ML VIAL SQ PRN (18:55)
[2019-05-07 19:53] VITALS: BP 106/55
[2019-05-07] MEDS: ENOXAPARIN SODIUM 30 MG/0.3 ML DISP.SYRIN SUBCUT SCH (20:42)
[2019-05-07] MEDS: ATORVASTATIN 10 MG TABLET PO SCH (20:42)
[2019-05-07] MEDS: CALCIUM CARB/VITAMIN D 500MG-200UNITS TABLET PO SCH (20:43)
[2019-05-07] MEDS ORDERED: ENOXAPARIN SODIUM 40 MG/0.4 ML DISP.SYRIN SQ SCH (21:00)
[2019-05-07 21:55] VITALS: BP 123/51
[2019-05-07] MEDS: hydrALAZINE HCL 50 MG TABLET PO SCH (21:56)
[2019-05-07] MEDS: ALBUTEROL SULFATE 2.5 MG/ 0.5 ML NEBU NEB SCH (21:59)
[2019-05-07] MEDS: IPRATROPIUM BROMIDE 0.5 MG/2.5 ML NEBU NEB SCH (21:59)
[2019-05-07 23:58] VITALS: BP 113/49
[2019-05-08] MEDS: BLOOD SUGAR DIAGNOSTIC 1 EACH STRIP VI SCH ×5 (01:00→23:35)
[2019-05-08] MEDS: IPRATROPIUM BROMIDE 0.5 MG/2.5 ML NEBU NEB SCH ×4 (01:55→21:43)
[2019-05-08] MEDS: ALBUTEROL SULFATE 2.5 MG/ 0.5 ML NEBU NEB SCH ×4 (01:56→21:44)
[2019-05-08] MEDS: MORPHINE SULFATE 2 MG/1 ML DISP.SYRIN IV PRN ×3 (03:24→14:30)
[2019-05-08 04:00] VITALS: BP 133/53
[2019-05-08 06:25] LABS: BASOPHILS # (AUTO) 0.1 K/uL (0.0-8.0); BASOPHILS % (AUTO) 0.7 % (0.0-2.0); EOSINOPHILS # (AUTO) 0.3 K/uL (0.0-0.7); HEMATOCRIT 22.9 % (31.2-41.9); HEMOGLOBIN 7.6 g/dL (10.9-14.3); LYMPHOCYTES # (AUTO) 1.4 K/uL (20.0-40.0); LYMPHOCYTES % (AUTO) 17.1 % (20.5-51.5); MEAN CORPUSCULAR HEMOGLOBIN 32.3 uug (24.7-32.8); MEAN CORPUSCULAR HGB CONC 33 g/dL (32.3-35.6); MONOCYTES # (AUTO) 0.8 K/uL (2.0-10.0); MONOCYTES % (AUTO) 9.4 % (0.0-11.0); NEUTROPHILS # (AUTO) 5.6 K/uL (1.8-8.9); NEUTROPHILS % (AUTO) 68.8 % (38.5-71.5); PLATELET COUNT (AUTO) 155 K/uL (179-408); WHITE BLOOD COUNT (AUTO) 8.2 K/uL (3.8-11.8)
[2019-05-08 06:28] LABS: RED BLOOD CELL COUNT(AUTO) 2.36 MIL/uL (3.63-4.92)
[2019-05-08] MEDS: LEVOTHYROXINE SODIUM 75 MCG TABLET PO SCH (06:31)
[2019-05-08 06:38] LABS: CARBON DIOXIDE 29 mmol/L (21-32); CHLORIDE 106 mmol/L (98-107); CREATININE 2.1 mg/dL (0.6-1.3); GLUCOSE 132 mg/dL (74-106); MAGNESIUM 1.9 mg/dL (1.8-2.4); PHOSPHOROUS 4.8 mg/dL (2.5-4.9); UREA NITROGEN, BLOOD 32 mg/dL (7-18)
[2019-05-08] MEDS: CARVEDILOL 25 MG TABLET PO SCH ×2 (08:00→17:22)
[2019-05-08] MEDS: FLUTICASONE/VILANTEROL 1 EACH BLST.W.DEV IH SCH (08:16)
[2019-05-08] MEDS: DOCUSATE SODIUM 100 MG CAPSULE PO SCH ×2 (08:17→17:20)
[2019-05-08] MEDS: FERROUS SULFATE 325 MG TABEC PO SCH ×2 (08:17→17:20)
[2019-05-08] MEDS: ASPIRIN EC 81 MG TABLET.DR PO SCH (08:17)
[2019-05-08] MEDS: hydrALAZINE HCL 50 MG TABLET PO SCH ×2 (08:17→21:58)
[2019-05-08] MEDS: AMLODIPINE 10 MG TABLET PO SCH (08:18)
[2019-05-08] MEDS: GABAPENTIN 300 MG CAPSULE PO SCH (08:18)
[2019-05-08] MEDS: CALCIUM CARB/VITAMIN D 500MG-200UNITS TABLET PO SCH ×2 (08:19→20:29)
[2019-05-08] MEDS: PAROXETINE HCL 20 MG TABLET PO SCH (08:19)
[2019-05-08] MEDS: predniSONE 5 MG TABLET PO SCH (08:19)
[2019-05-08] MEDS ORDERED: FUROSEMIDE 40 MG TABLET PO SCH (09:00)
[2019-05-08] MEDS ORDERED: LISINOPRIL 20 MG TABLET PO SCH (09:00)
[2019-05-08] MEDS ORDERED: POTASSIUM CHLORIDE 20 MEQ TAB.PRT.SR PO SCH (09:00)
[2019-05-08] MEDS ORDERED: GABAPENTIN 300 MG CAPSULE PO SCH (09:00)
[2019-05-08 11:04] VITALS: BP 131/53
[2019-05-08] MEDS: INSULIN REGULAR, HUMAN 300 UNIT/3 ML VIAL SQ PRN ×3 (12:00→23:38)
[2019-05-08 15:06] VITALS: BP 130/46
[2019-05-08 20:06] VITALS: BP 130/48
[2019-05-08] MEDS: ATORVASTATIN 10 MG TABLET PO SCH (20:29)
[2019-05-08] MEDS: ENOXAPARIN SODIUM 30 MG/0.3 ML DISP.SYRIN SUBCUT SCH (20:30)
[2019-05-08 21:59] VITALS: BP 134/56
[2019-05-09] VITALS (14 sets, daily range): BP systolic 111–154; BP diastolic 31–60
[2019-05-09] MEDS: IPRATROPIUM BROMIDE 0.5 MG/2.5 ML NEBU NEB SCH ×4 (01:40→19:23)
[2019-05-09] MEDS: ALBUTEROL SULFATE 2.5 MG/ 0.5 ML NEBU NEB SCH ×4 (01:40→19:23)
[2019-05-09] MEDS: BLOOD SUGAR DIAGNOSTIC 1 EACH STRIP VI SCH ×3 (05:47→17:45)
[2019-05-09] MEDS ORDERED: ALENDRONATE SODIUM 70 MG TABLET PO SCH (06:00)
[2019-05-09 06:37] LABS: ALANINE AMINOTRANSFERASE 20 U/L (14-59); ALKALINE PHOSPHATASE 83 U/L (50-136); ASPARTATE AMINOTRANSFERASE 20 U/L (15-37); BILIRUBIN,TOTAL 0.4 mg/dL (0.2-1.0); CARBON DIOXIDE 32 mmol/L (21-32); CHLORIDE 108 mmol/L (98-107); CREATINE KINASE, TOTAL 36 U/L (26-192); CREATININE 1.9 mg/dL (0.6-1.3); GLUCOSE 112 mg/dL (74-106); MAGNESIUM 1.9 mg/dL (1.8-2.4); PHOSPHOROUS 3.4 mg/dL (2.5-4.9); POTASSIUM 3.7 mmol/L (3.5-5.1); TOTAL PROTEIN, SERUM 5.6 g/dL (6.4-8.2); UREA NITROGEN, BLOOD 29 mg/dL (7-18)
[2019-05-09 06:54] LABS: BASOPHILS # (AUTO) 0.1 K/uL (0.0-8.0); BASOPHILS % (AUTO) 0.6 % (0.0-2.0); MEAN CORPUSCULAR HEMOGLOBIN 32.6 uug (24.7-32.8); WHITE BLOOD COUNT (AUTO) 9.7 K/uL (3.8-11.8)
[2019-05-09] MEDS: LEVOTHYROXINE SODIUM 75 MCG TABLET PO SCH (07:00)
[2019-05-09 07:11] LABS: EOSINOPHILS # (AUTO) 0.5 K/uL (0.0-0.7); LYMPHOCYTES # (AUTO) 1.9 K/uL (20.0-40.0); LYMPHOCYTES % (AUTO) 19.3 % (20.5-51.5); MEAN CORPUSCULAR HGB CONC 33 g/dL (32.3-35.6); MEAN CORPUSCULAR VOLUME 98.2 fL (75.5-95.3); MONOCYTES % (AUTO) 10.1 % (0.0-11.0); NEUTROPHILS # (AUTO) 6.3 K/uL (1.8-8.9); PLATELET COUNT (AUTO) 147 K/uL (179-408)
[2019-05-09 07:29] LABS: HEMOGLOBIN 6.9 g/dL (10.9-14.3)
[2019-05-09 07:30] LABS: HEMATOCRIT 20.7 % (31.2-41.9)
[2019-05-09 08:01] LABS: BASOPHILS % (MANUAL) 1 % (0-2); EOSINOPHILS % (MANUAL) 4 % (0-8); LYMPHOCYTES % (MANUAL) 21 % (20-40); MONOCYTES % (MANUAL) 5 % (2-10); NEUTROPHILS % (MANUAL) 69 % (42-75)
[2019-05-09] MEDS: CARVEDILOL 25 MG TABLET PO SCH ×2 (08:54→17:40)
[2019-05-09] MEDS: hydrALAZINE HCL 50 MG TABLET PO SCH ×2 (08:54→20:27)
[2019-05-09] MEDS: AMLODIPINE 10 MG TABLET PO SCH (08:55)
[2019-05-09] MEDS: GABAPENTIN 300 MG CAPSULE PO SCH (09:00)
[2019-05-09] MEDS: FERROUS SULFATE 325 MG TABEC PO SCH ×2 (09:00→17:39)
[2019-05-09] MEDS: ASPIRIN EC 81 MG TABLET.DR PO SCH (09:00)
[2019-05-09] MEDS: PAROXETINE HCL 20 MG TABLET PO SCH (09:00)
[2019-05-09] MEDS: CALCIUM CARB/VITAMIN D 500MG-200UNITS TABLET PO SCH ×2 (09:00→20:26)
[2019-05-09] MEDS: predniSONE 5 MG TABLET PO SCH (09:00)
[2019-05-09] MEDS: DOCUSATE SODIUM 100 MG CAPSULE PO SCH ×2 (09:00→17:38)
[2019-05-09] MEDS: FLUTICASONE/VILANTEROL 1 EACH BLST.W.DEV IH SCH (09:00)
[2019-05-09] MEDS: INSULIN REGULAR, HUMAN 300 UNIT/3 ML VIAL SQ PRN ×2 (12:18→17:46)
[2019-05-09] MEDS: ATORVASTATIN 10 MG TABLET PO SCH (20:26)
[2019-05-09] MEDS: ENOXAPARIN SODIUM 30 MG/0.3 ML DISP.SYRIN SUBCUT SCH (20:32)
[2019-05-10] VITALS (10 sets, daily range): BP systolic 104–154; BP diastolic 46–72
[2019-05-10] MEDS: BLOOD SUGAR DIAGNOSTIC 1 EACH STRIP VI SCH ×4 (00:07→19:14)
[2019-05-10] MEDS: INSULIN REGULAR, HUMAN 300 UNIT/3 ML VIAL SQ PRN ×4 (00:08→19:16)
[2019-05-10] MEDS: ALBUTEROL SULFATE 2.5 MG/ 0.5 ML NEBU NEB SCH ×4 (00:59→19:31)
[2019-05-10] MEDS: IPRATROPIUM BROMIDE 0.5 MG/2.5 ML NEBU NEB SCH ×4 (00:59→19:31)
[2019-05-10] MEDS ORDERED: VANCOMYCIN 1000 MG VIAL ONE (06:58)
[2019-05-10] MEDS: LEVOTHYROXINE SODIUM 75 MCG TABLET PO SCH (07:00)
[2019-05-10] MEDS ORDERED: POLYMYXIN B SULFATE 500,000 UNITS, BACITRACIN 50,000 UNITS, NORMAL SALINE 20 ML MC ONE ×3 (07:15)
[2019-05-10 07:25] LABS: BASOPHILS # (AUTO) 0.1 K/uL (0.0-8.0); BASOPHILS % (AUTO) 0.8 % (0.0-2.0); EOSINOPHILS # (AUTO) 0.3 K/uL (0.0-0.7); EOSINOPHILS % (AUTO) 3.6 % (0.0-7.0); HEMATOCRIT 24.4 % (31.2-41.9); HEMOGLOBIN 8.3 g/dL (10.9-14.3); LYMPHOCYTES # (AUTO) 1.4 K/uL (20.0-40.0); LYMPHOCYTES % (AUTO) 14.4 % (20.5-51.5); MEAN CORPUSCULAR HEMOGLOBIN 31.5 uug (24.7-32.8); MEAN CORPUSCULAR HGB CONC 34 g/dL (32.3-35.6); MONOCYTES # (AUTO) 0.7 K/uL (2.0-10.0); MONOCYTES % (AUTO) 7.8 % (0.0-11.0); NEUTROPHILS % (AUTO) 73.4 % (38.5-71.5); PLATELET COUNT (AUTO) 135 K/uL (179-408); RED BLOOD CELL COUNT(AUTO) 2.62 MIL/uL (3.63-4.92); WHITE BLOOD COUNT (AUTO) 9.6 K/uL (3.8-11.8)
[2019-05-10] MEDS ORDERED: LIDOCAINE-MPF 2% 5 ML VIAL IJ ONE (08:00)
[2019-05-10] MEDS ORDERED: IV NORMAL SALINE 1000 ML BAG IV ONE ×2 (08:00)
[2019-05-10] MEDS ORDERED: CEFAZOLIN 1 G VIAL IM ONE (08:00)
[2019-05-10] MEDS ORDERED: SEVOFLURANE 250 ML BOTTLE IH ONE (08:00)
[2019-05-10] MEDS ORDERED: PROPOFOL 200 MG/20 ML BOTTLE IV ONE (08:00)
[2019-05-10] MEDS ORDERED: EPHEDRINE SULFATE 50 MG/ML AMPUL IM ONE (08:00)
[2019-05-10] MEDS ORDERED: ONDANSETRON 4 MG/2 ML VIAL IV ONE (08:00)
[2019-05-10] MEDS ORDERED: FENTANYL CITRATE 100 MCG/2 ML AMPUL ONE (08:02)
[2019-05-10] MEDS ORDERED: MIDAZOLAM HCL 2 MG/2 ML VIAL ONE (08:03)
[2019-05-10] MEDS ORDERED: BUPIVACAINE PF 0.5% 30 ML VIAL ONE (10:12)
[2019-05-10] MEDS ORDERED: POTASSIUM CHLORIDE 20 MEQ in IV D5 1/2 NS 1000 ML 1,000 ML IV PRN (11:00)
[2019-05-10] MEDS: GABAPENTIN 300 MG CAPSULE PO SCH (13:51)
[2019-05-10] MEDS: PAROXETINE HCL 20 MG TABLET PO SCH (13:52)
[2019-05-10] MEDS: CARVEDILOL 25 MG TABLET PO SCH ×2 (13:52→20:34)
[2019-05-10] MEDS: FERROUS SULFATE 325 MG TABEC PO SCH ×2 (13:52→20:33)
[2019-05-10] MEDS: AMLODIPINE 10 MG TABLET PO SCH (13:53)
[2019-05-10] MEDS: CALCIUM CARB/VITAMIN D 500MG-200UNITS TABLET PO SCH ×2 (13:53→20:36)
[2019-05-10] MEDS: hydrALAZINE HCL 50 MG TABLET PO SCH ×2 (13:54→21:44)
[2019-05-10] MEDS: DOCUSATE SODIUM 100 MG CAPSULE PO SCH ×2 (13:54→19:04)
[2019-05-10] MEDS: FLUTICASONE/VILANTEROL 1 EACH BLST.W.DEV IH SCH (13:55)
[2019-05-10] MEDS: MORPHINE SULFATE 4 MG/1 ML DISP.SYRIN IV PRN ×2 (14:44→16:45)
[2019-05-10 15:24] LABS: HEMATOCRIT 27.3 % (31.2-41.9)
[2019-05-10] MEDS ORDERED: CEFAZOLIN 2 G in IV DEXTROSE 5% 100 ML IV SCH ×2 (17:00→21:00)
[2019-05-10] MEDS: ATORVASTATIN 10 MG TABLET PO SCH (20:41)
[2019-05-10] MEDS ORDERED: ENOXAPARIN SODIUM 30 MG/0.3 ML DISP.SYRIN SUBCUT SCH (21:00)
[2019-05-10] MEDS: IV NORMAL SALINE 250 ML IV PRN (21:42)
[2019-05-11] VITALS (22 sets, daily range): BP systolic 90–132; BP diastolic 34–82
[2019-05-11] MEDS: INSULIN REGULAR, HUMAN 300 UNIT/3 ML VIAL SQ PRN ×4 (00:21→23:52)
[2019-05-11] MEDS: BLOOD SUGAR DIAGNOSTIC 1 EACH STRIP VI SCH ×5 (00:22→23:50)
[2019-05-11] MEDS: IPRATROPIUM BROMIDE 0.5 MG/2.5 ML NEBU NEB SCH ×4 (02:02→20:16)
[2019-05-11] MEDS: ALBUTEROL SULFATE 2.5 MG/ 0.5 ML NEBU NEB SCH ×4 (02:02→20:16)
[2019-05-11 05:04] LABS: BASOPHILS # (AUTO) 0.1 K/uL (0.0-8.0); BASOPHILS % (AUTO) 0.7 % (0.0-2.0); EOSINOPHILS # (AUTO) 0.2 K/uL (0.0-0.7); EOSINOPHILS % (AUTO) 1.1 % (0.0-7.0); HEMATOCRIT 25.2 % (31.2-41.9); HEMOGLOBIN 8.4 g/dL (10.9-14.3); LYMPHOCYTES # (AUTO) 1.5 K/uL (20.0-40.0); LYMPHOCYTES % (AUTO) 10.6 % (20.5-51.5); MEAN CORPUSCULAR HEMOGLOBIN 30.5 uug (24.7-32.8); MEAN CORPUSCULAR HGB CONC 34 g/dL (32.3-35.6); MEAN CORPUSCULAR VOLUME 91.1 fL (75.5-95.3); MONOCYTES # (AUTO) 1.1 K/uL (2.0-10.0); MONOCYTES % (AUTO) 7.9 % (0.0-11.0); NEUTROPHILS # (AUTO) 11.5 K/uL (1.8-8.9); NEUTROPHILS % (AUTO) 79.7 % (38.5-71.5); PLATELET COUNT (AUTO) 127 K/uL (179-408); RED BLOOD CELL COUNT(AUTO) 2.77 MIL/uL (3.63-4.92); WHITE BLOOD COUNT (AUTO) 14.4 K/uL (3.8-11.8)
[2019-05-11 05:22] LABS: ALANINE AMINOTRANSFERASE 9 U/L (14-59); ALKALINE PHOSPHATASE 66 U/L (50-136); ASPARTATE AMINOTRANSFERASE 13 U/L (15-37); BILIRUBIN,TOTAL 0.4 mg/dL (0.2-1.0); CARBON DIOXIDE 29 mmol/L (21-32); CHLORIDE 106 mmol/L (98-107); CREATININE 2.4 mg/dL (0.6-1.3); GLUCOSE 207 mg/dL (74-106); MAGNESIUM 1.9 mg/dL (1.8-2.4); PHOSPHOROUS 2.7 mg/dL (2.5-4.9); POTASSIUM 4.5 mmol/L (3.5-5.1); TOTAL PROTEIN, SERUM 5.1 g/dL (6.4-8.2); UREA NITROGEN, BLOOD 27 mg/dL (7-18)
[2019-05-11] MEDS: Z GUARD REMEDY PASTE 57 GM TUBE TOP PRN (05:49)
[2019-05-11] MEDS: CARVEDILOL 25 MG TABLET PO SCH ×2 (08:00→18:30)
[2019-05-11] MEDS: ACETAMINOPHEN 325 MG TABLET PO PRN (08:01)
[2019-05-11] MEDS: LEVOTHYROXINE SODIUM 75 MCG TABLET PO SCH (08:01)
[2019-05-11] MEDS: hydrALAZINE HCL 50 MG TABLET PO SCH ×2 (09:00→20:50)
[2019-05-11] MEDS: AMLODIPINE 10 MG TABLET PO SCH (09:00)
[2019-05-11] MEDS: FLUTICASONE/VILANTEROL 1 EACH BLST.W.DEV IH SCH (09:38)
[2019-05-11] MEDS: DOCUSATE SODIUM 100 MG CAPSULE PO SCH ×2 (09:40→17:24)
[2019-05-11] MEDS: ASPIRIN EC 81 MG TABLET.DR PO SCH (09:40)
[2019-05-11] MEDS: FERROUS SULFATE 325 MG TABEC PO SCH ×2 (09:40→17:25)
[2019-05-11] MEDS: GABAPENTIN 300 MG CAPSULE PO SCH (09:41)
[2019-05-11] MEDS: CALCIUM CARB/VITAMIN D 500MG-200UNITS TABLET PO SCH ×2 (09:41→20:49)
[2019-05-11] MEDS: PAROXETINE HCL 20 MG TABLET PO SCH (10:16)
[2019-05-11] MEDS: FUROSEMIDE 40 MG TABLET PO SCH (10:50)
[2019-05-11] MEDS: HYDROCODONE/APAP 10-325 MG TABLET PO PRN ×2 (13:15→21:39)
[2019-05-11] MEDS ORDERED: CEFTRIAXONE 1 G VIAL IM SCH (14:00)
[2019-05-11] MEDS ORDERED: CEFTRIAXONE 1 G in IV DEXTROSE 5% 50 ML IV SCH (15:00)
[2019-05-11] MEDS: CLOTRIMAZOLE 1% CREAM 30 GM TUBE TOP SCH (17:25)
[2019-05-11] MEDS: ATORVASTATIN 10 MG TABLET PO SCH (20:49)
[2019-05-11] MEDS ORDERED: VANCOMYCIN IV 1,000 MG in IV NORMAL SALINE 250 ML IV ONE (22:30)
[2019-05-11] MEDS: CEFEPIME HCL 1 G in IV DEXTROSE 5% 50 ML IV SCH (22:39)
[2019-05-11] MEDS: IV NORMAL SALINE 250 ML IV PRN (23:44)
[2019-05-12] VITALS: BP 107/50
[2019-05-12] MEDS: ALBUTEROL SULFATE 2.5 MG/ 0.5 ML NEBU NEB SCH ×4 (00:38→20:15)
[2019-05-12] MEDS: IPRATROPIUM BROMIDE 0.5 MG/2.5 ML NEBU NEB SCH ×4 (00:38→20:15)
[2019-05-12 04:00] VITALS: BP 100/59
[2019-05-12 05:06] LABS: BASOPHILS % (AUTO) 0.3 % (0.0-2.0); EOSINOPHILS # (AUTO) 0.4 K/uL (0.0-0.7); MONOCYTES # (AUTO) 0.9 K/uL (2.0-10.0); MONOCYTES % (AUTO) 8.5 % (0.0-11.0); PLATELET COUNT (AUTO) 113 K/uL (179-408)
[2019-05-12 05:08] LABS: EOSINOPHILS % (AUTO) 3.9 % (0.0-7.0); HEMATOCRIT 21.5 % (31.2-41.9); LYMPHOCYTES # (AUTO) 1.4 K/uL (20.0-40.0); LYMPHOCYTES % (AUTO) 13.6 % (20.5-51.5); MEAN CORPUSCULAR HEMOGLOBIN 31.4 uug (24.7-32.8); MEAN CORPUSCULAR HGB CONC 34 g/dL (32.3-35.6); MEAN CORPUSCULAR VOLUME 91.4 fL (75.5-95.3); NEUTROPHILS # (AUTO) 7.5 K/uL (1.8-8.9); NEUTROPHILS % (AUTO) 73.7 % (38.5-71.5); WHITE BLOOD COUNT (AUTO) 10.2 K/uL (3.8-11.8)
[2019-05-12 05:10] LABS: CARBON DIOXIDE 27 mmol/L (21-32); CHLORIDE 102 mmol/L (98-107); CREATININE 2.7 mg/dL (0.6-1.3); GLUCOSE 178 mg/dL (74-106); MAGNESIUM 1.9 mg/dL (1.8-2.4); PHOSPHOROUS 3.3 mg/dL (2.5-4.9); POTASSIUM 4.3 mmol/L (3.5-5.1); UREA NITROGEN, BLOOD 36 mg/dL (7-18)
[2019-05-12 05:41] LABS: RED BLOOD CELL COUNT(AUTO) 2.35 MIL/uL (3.63-4.92)
[2019-05-12 05:42] LABS: HEMOGLOBIN 7.4 g/dL (10.9-14.3)
[2019-05-12] MEDS: LEVOTHYROXINE SODIUM 75 MCG TABLET PO SCH (07:00)
[2019-05-12] MEDS ORDERED: BLOOD SUGAR DIAGNOSTIC 1 EACH STRIP VI SCH (07:30)
[2019-05-12] MEDS ORDERED: DEXTROSE 50% 50 ML DISP.SYRIN IV PRN (07:45)
[2019-05-12] MEDS ORDERED: INSULIN REGULAR, HUMAN 300 UNITS/3 ML VIAL SQ PRN (07:45)
[2019-05-12 08:00] VITALS: BP 119/64
[2019-05-12] MEDS: ASPIRIN EC 81 MG TABLET.DR PO SCH (08:40)
[2019-05-12] MEDS: CARVEDILOL 25 MG TABLET PO SCH ×2 (08:40→17:31)
[2019-05-12] MEDS: CALCIUM CARB/VITAMIN D 500MG-200UNITS TABLET PO SCH ×2 (08:41→20:32)
[2019-05-12] MEDS: FERROUS SULFATE 325 MG TABEC PO SCH ×2 (08:41→17:24)
[2019-05-12] MEDS: GABAPENTIN 300 MG CAPSULE PO SCH (08:41)
[2019-05-12] MEDS: FUROSEMIDE 40 MG TABLET PO SCH (08:42)
[2019-05-12] MEDS: AMLODIPINE 10 MG TABLET PO SCH (08:42)
[2019-05-12] MEDS: DOCUSATE SODIUM 100 MG CAPSULE PO SCH ×2 (08:43→17:26)
[2019-05-12] MEDS: hydrALAZINE HCL 50 MG TABLET PO SCH ×2 (08:45→20:33)
[2019-05-12] MEDS: CLOTRIMAZOLE 1% CREAM 30 GM TUBE TOP SCH ×2 (08:46→17:23)
[2019-05-12] MEDS: PAROXETINE HCL 20 MG TABLET PO SCH (08:46)
[2019-05-12] MEDS: FLUTICASONE/VILANTEROL 1 EACH BLST.W.DEV IH SCH (08:47)
[2019-05-12] MEDS: INSULIN REGULAR, HUMAN 300 UNIT/3 ML VIAL SQ PRN ×4 (08:53→20:31)
[2019-05-12 12:00] VITALS: BP 116/61
[2019-05-12] MEDS: BLOOD SUGAR DIAGNOSTIC 1 EACH STRIP VI SCH ×3 (12:26→20:29)
[2019-05-12] MEDS ORDERED: IV 1/2NS 1000 ML 1,000 ML IV ONE (14:45)
[2019-05-12 16:00] VITALS: BP 108/49
[2019-05-12] MEDS ORDERED: Z GUARD REMEDY PASTE 57 GM TUBE TOP PRN (17:30)
[2019-05-12 20:00] VITALS: BP 114/52
[2019-05-12] MEDS: ATORVASTATIN 10 MG TABLET PO SCH (20:32)
[2019-05-12] MEDS: ACETAMINOPHEN 325 MG TABLET PO PRN (20:35)
[2019-05-12] MEDS: HYDROCODONE/APAP 10-325 MG TABLET PO PRN (21:17)
[2019-05-12] MEDS: CEFEPIME HCL 1 G in IV DEXTROSE 5% 50 ML IV SCH (21:39)
[2019-05-13] VITALS (7 sets, daily range): BP systolic 91–121; BP diastolic 33–85
[2019-05-13] MEDS: ALBUTEROL SULFATE 2.5 MG/ 0.5 ML NEBU NEB SCH ×4 (01:31→19:14)
[2019-05-13] MEDS: IPRATROPIUM BROMIDE 0.5 MG/2.5 ML NEBU NEB SCH ×4 (01:31→19:14)
[2019-05-13 05:02] LABS: BASOPHILS % (AUTO) 0.2 % (0.0-2.0); EOSINOPHILS # (AUTO) 0.3 K/uL (0.0-0.7); LYMPHOCYTES # (AUTO) 1.2 K/uL (20.0-40.0); LYMPHOCYTES % (AUTO) 8.1 % (20.5-51.5); MEAN CORPUSCULAR HEMOGLOBIN 31.3 uug (24.7-32.8); MEAN CORPUSCULAR HGB CONC 33 g/dL (32.3-35.6); MONOCYTES # (AUTO) 0.9 K/uL (2.0-10.0); WHITE BLOOD COUNT (AUTO) 14.6 K/uL (3.8-11.8)
[2019-05-13 05:04] LABS: EOSINOPHILS % (AUTO) 2.1 % (0.0-7.0); MEAN CORPUSCULAR VOLUME 93.8 fL (75.5-95.3); NEUTROPHILS # (AUTO) 12.2 K/uL (1.8-8.9); NEUTROPHILS % (AUTO) 83.6 % (38.5-71.5); PLATELET COUNT (AUTO) 140 K/uL (179-408)
[2019-05-13 05:24] LABS: ALANINE AMINOTRANSFERASE 10 U/L (14-59); ALKALINE PHOSPHATASE 177 U/L (50-136); ASPARTATE AMINOTRANSFERASE 26 U/L (15-37); BILIRUBIN,TOTAL 0.4 mg/dL (0.2-1.0); CARBON DIOXIDE 28 mmol/L (21-32); CHLORIDE 101 mmol/L (98-107); CREATININE 3.2 mg/dL (0.6-1.3); GLUCOSE 217 mg/dL (74-106); MAGNESIUM 1.9 mg/dL (1.8-2.4); POTASSIUM 4.6 mmol/L (3.5-5.1); TOTAL PROTEIN, SERUM 5.5 g/dL (6.4-8.2); UREA NITROGEN, BLOOD 45 mg/dL (7-18); VANCOMYCIN,RANDOM 10.4 ug/mL (18.0-26.0)
[2019-05-13 05:27] LABS: HEMOGLOBIN 7.4 g/dL (10.9-14.3); RED BLOOD CELL COUNT(AUTO) 2.35 MIL/uL (3.63-4.92)
[2019-05-13] MEDS: LEVOTHYROXINE SODIUM 75 MCG TABLET PO SCH (06:47)
[2019-05-13] MEDS: BLOOD SUGAR DIAGNOSTIC 1 EACH STRIP VI SCH ×4 (07:31→21:29)
[2019-05-13] MEDS: CARVEDILOL 25 MG TABLET PO SCH (08:00)
[2019-05-13] MEDS: DOCUSATE SODIUM 100 MG CAPSULE PO SCH ×2 (08:27→16:03)
[2019-05-13] MEDS: FUROSEMIDE 40 MG TABLET PO SCH (08:27)
[2019-05-13] MEDS: FLUTICASONE/VILANTEROL 1 EACH BLST.W.DEV IH SCH (08:27)
[2019-05-13] MEDS: ASPIRIN EC 81 MG TABLET.DR PO SCH (08:27)
[2019-05-13] MEDS: GABAPENTIN 300 MG CAPSULE PO SCH (08:27)
[2019-05-13] MEDS: FERROUS SULFATE 325 MG TABEC PO SCH ×2 (08:27→17:22)
[2019-05-13] MEDS: CALCIUM CARB/VITAMIN D 500MG-200UNITS TABLET PO SCH ×2 (08:27→20:34)
[2019-05-13] MEDS: PAROXETINE HCL 20 MG TABLET PO SCH (08:27)
[2019-05-13] MEDS: CLOTRIMAZOLE 1% CREAM 30 GM TUBE TOP SCH ×2 (08:28→17:24)
[2019-05-13] MEDS: AMLODIPINE 10 MG TABLET PO SCH (08:29)
[2019-05-13] MEDS: hydrALAZINE HCL 50 MG TABLET PO SCH (08:30)
[2019-05-13] MEDS: INSULIN REGULAR, HUMAN 300 UNIT/3 ML VIAL SQ PRN ×3 (08:34→15:51)
[2019-05-13] MEDS ORDERED: VANCOMYCIN IV 1,500 MG in IV DEXTROSE 5% 500 ML IV ONE (09:00)
[2019-05-13] MEDS ORDERED: FUROSEMIDE 40 MG/4 ML VIAL IV ONE (14:45)
[2019-05-13] MEDS: ALBUTEROL SULFATE 2.5 MG/3 ML NEBU NEB PRN (17:03)
[2019-05-13] MEDS: IPRATROPIUM BROMIDE 0.5 MG/2.5 ML NEBU NEB PRN (17:03)
[2019-05-13] MEDS ORDERED: NITROGLYCERIN 0.4 MG/TAB BOTTLE SL PRN (17:15)
[2019-05-13] MEDS: CARVEDILOL 12.5 MG TABLET PO SCH (17:17)
[2019-05-13] MEDS ORDERED: CARVEDILOL 25 MG TABLET PO SCH (18:00)
[2019-05-13] MEDS: ATORVASTATIN 10 MG TABLET PO SCH (20:33)
[2019-05-13] MEDS: CULTURELLE CAPSULE PO SCH (20:33)
[2019-05-13 21:33] LABS: *BILIRUBIN,URIN NEGATIVE (NEGATIVE); *BLOOD, URINE 2+ (NEGATIVE); *CLARITY,URINE SLIGHTLY CLOUDY (CLEAR); *COLOR,URINE YELLOW (YELLOW); *KETONES,URINE NEGATIVE (NEGATIVE); *UROBILINOGEN,URINE 0.2 E.U./dl (NORMAL); LEUKOCYTE ESTERASE ,URINE 2+ (NEGATIVE); NITRITE, URINE NEGATIVE (NEGATIVE); PH,URINE 5.5 (5.0-8.0); UGLUCOSE NEGATIVE (NEGATIVE)
[2019-05-13] MEDS: CEFEPIME HCL 1 G in IV DEXTROSE 5% 50 ML IV SCH (21:33)
[2019-05-13 21:57] LABS: RBC,URINE 20-50 /HPF (0-3); WBC,URINE 50-80 /HPF (0-3)
[2019-05-13 21:58] LABS: *CREATININE,URINE 91.6 mg/dL (30-125); *URINE TOTAL PROTEIN RANDOM 84.3 mg/dL (<150/24HR); BACTERIA,URINE FEW /HPF (NONE SEEN); MUCUS,URINE MANY /LPF (0-FEW); SQUAMOUS EPITHELIAL CELL,UR FEW /HPF (NONE SEEN); YEAST,URINE MODERATE /HPF (NONE SEEN)
[2019-05-13] MEDS: IV NORMAL SALINE 250 ML IV PRN (23:18)
[2019-05-14] VITALS (7 sets, daily range): BP systolic 108–149; BP diastolic 43–82
[2019-05-14] MEDS: ALBUTEROL SULFATE 2.5 MG/ 0.5 ML NEBU NEB SCH ×4 (01:02→19:18)
[2019-05-14] MEDS: IPRATROPIUM BROMIDE 0.5 MG/2.5 ML NEBU NEB SCH ×4 (01:02→19:18)
[2019-05-14] MEDS: MORPHINE SULFATE 4 MG/1 ML DISP.SYRIN IV PRN ×2 (03:13→08:58)
[2019-05-14] MEDS: Z GUARD REMEDY PASTE 57 GM TUBE TOP PRN (05:52)
[2019-05-14] MEDS: LEVOTHYROXINE SODIUM 75 MCG TABLET PO SCH (05:52)
[2019-05-14] MEDS: BLOOD SUGAR DIAGNOSTIC 1 EACH STRIP VI SCH ×4 (08:40→20:39)
[2019-05-14] MEDS: INSULIN REGULAR, HUMAN 300 UNIT/3 ML VIAL SQ PRN ×3 (08:43→16:32)
[2019-05-14] MEDS: DOCUSATE SODIUM 100 MG CAPSULE PO SCH ×2 (08:51→16:36)
[2019-05-14] MEDS: GABAPENTIN 300 MG CAPSULE PO SCH (08:51)
[2019-05-14] MEDS: ASPIRIN EC 81 MG TABLET.DR PO SCH (08:51)
[2019-05-14] MEDS: CALCIUM CARB/VITAMIN D 500MG-200UNITS TABLET PO SCH ×2 (08:51→20:25)
[2019-05-14] MEDS: CARVEDILOL 12.5 MG TABLET PO SCH ×2 (08:54→17:13)
[2019-05-14] MEDS: AMLODIPINE 5 MG TABLET PO SCH (08:54)
[2019-05-14] MEDS: PAROXETINE HCL 20 MG TABLET PO SCH (08:57)
[2019-05-14] MEDS: FLUTICASONE/VILANTEROL 1 EACH BLST.W.DEV IH SCH (08:57)
[2019-05-14] MEDS: FERROUS SULFATE 325 MG TABEC PO SCH ×2 (08:57→17:13)
[2019-05-14] MEDS: CLOTRIMAZOLE 1% CREAM 30 GM TUBE TOP SCH ×2 (08:59→16:37)
[2019-05-14] MEDS ORDERED: AMLODIPINE 10 MG TABLET PO SCH (09:00)
[2019-05-14 10:12] LABS: EOSINOPHILS # (AUTO) 0.3 K/uL (0.0-0.7); LYMPHOCYTES # (AUTO) 0.8 K/uL (20.0-40.0); MEAN CORPUSCULAR HEMOGLOBIN 30.5 uug (24.7-32.8); WHITE BLOOD COUNT (AUTO) 7.7 K/uL (3.8-11.8)
[2019-05-14 10:13] LABS: BASOPHILS % (AUTO) 0.3 % (0.0-2.0); EOSINOPHILS % (AUTO) 4.4 % (0.0-7.0); HEMATOCRIT 21.2 % (31.2-41.9); MEAN CORPUSCULAR HGB CONC 33 g/dL (32.3-35.6); MEAN CORPUSCULAR VOLUME 91.6 fL (75.5-95.3); MONOCYTES # (AUTO) 0.5 K/uL (2.0-10.0); MONOCYTES % (AUTO) 6.8 % (0.0-11.0); NEUTROPHILS % (AUTO) 77.5 % (38.5-71.5); PLATELET COUNT (AUTO) 154 K/uL (179-408)
[2019-05-14] MEDS: BUMETANIDE 1 MG/4 ML VIAL IV SCH (10:25)
[2019-05-14 10:26] LABS: CARBON DIOXIDE 26 mmol/L (21-32); CHLORIDE 101 mmol/L (98-107); GLUCOSE 204 mg/dL (74-106); MAGNESIUM 2.1 mg/dL (1.8-2.4); PHOSPHOROUS 3.5 mg/dL (2.5-4.9); UREA NITROGEN, BLOOD 50 mg/dL (7-18)
[2019-05-14 10:29] LABS: HEMOGLOBIN 7.1 g/dL (10.9-14.3); RED BLOOD CELL COUNT(AUTO) 2.32 MIL/uL (3.63-4.92)
[2019-05-14] MEDS: CULTURELLE CAPSULE PO SCH ×2 (10:33→20:26)
[2019-05-14] MEDS: IPRATROPIUM BROMIDE 0.5 MG/2.5 ML NEBU NEB PRN (11:07)
[2019-05-14] MEDS: ALBUTEROL SULFATE 2.5 MG/3 ML NEBU NEB PRN (11:07)
[2019-05-14] MEDS: HYDROCODONE/APAP 10-325 MG TABLET PO PRN (17:14)
[2019-05-14] MEDS: ATORVASTATIN 10 MG TABLET PO SCH (20:25)
[2019-05-14] MEDS: CEFEPIME HCL 1 G in IV DEXTROSE 5% 50 ML IV SCH (21:44)
[2019-05-14] MEDS: IV NORMAL SALINE 250 ML IV PRN (22:22)
[2019-05-14] MEDS ORDERED: VANCOMYCIN IV 1,000 MG in IV DEXTROSE 5% 250 ML IV ONE (23:00)
[2019-05-15] VITALS (9 sets, daily range): BP systolic 95–154; BP diastolic 27–96
[2019-05-15] MEDS: IPRATROPIUM BROMIDE 0.5 MG/2.5 ML NEBU NEB SCH ×4 (00:55→19:41)
[2019-05-15] MEDS: ALBUTEROL SULFATE 2.5 MG/ 0.5 ML NEBU NEB SCH ×4 (00:55→19:41)
[2019-05-15 05:24] LABS: CARBON DIOXIDE 26 mmol/L (21-32); CHLORIDE 104 mmol/L (98-107); CREATININE 2.5 mg/dL (0.6-1.3); GLUCOSE 148 mg/dL (74-106); PHOSPHOROUS 3.6 mg/dL (2.5-4.9); POTASSIUM 3.8 mmol/L (3.5-5.1); UREA NITROGEN, BLOOD 46 mg/dL (7-18)
[2019-05-15 05:52] LABS: BASOPHILS % (AUTO) 0.7 % (0.0-2.0); EOSINOPHILS # (AUTO) 0.3 K/uL (0.0-0.7); EOSINOPHILS % (AUTO) 5.4 % (0.0-7.0); HEMATOCRIT 21.1 % (31.2-41.9); LYMPHOCYTES % (AUTO) 15.1 % (20.5-51.5); MEAN CORPUSCULAR HGB CONC 34 g/dL (32.3-35.6); MEAN CORPUSCULAR VOLUME 95.3 fL (75.5-95.3); MONOCYTES # (AUTO) 0.5 K/uL (2.0-10.0); MONOCYTES % (AUTO) 7.6 % (0.0-11.0); NEUTROPHILS # (AUTO) 4.6 K/uL (1.8-8.9); NEUTROPHILS % (AUTO) 71.2 % (38.5-71.5); PLATELET COUNT (AUTO) 181 K/uL (179-408); WHITE BLOOD COUNT (AUTO) 6.4 K/uL (3.8-11.8)
[2019-05-15 05:58] LABS: HEMOGLOBIN 7.1 g/dL (10.9-14.3); RED BLOOD CELL COUNT(AUTO) 2.21 MIL/uL (3.63-4.92)
[2019-05-15] MEDS: LEVOTHYROXINE SODIUM 75 MCG TABLET PO SCH (07:01)
[2019-05-15] MEDS: BLOOD SUGAR DIAGNOSTIC 1 EACH STRIP VI SCH ×4 (07:15→21:20)
[2019-05-15] MEDS: INSULIN REGULAR, HUMAN 300 UNIT/3 ML VIAL SQ PRN ×3 (07:17→17:19)
[2019-05-15] MEDS: CARVEDILOL 12.5 MG TABLET PO SCH ×2 (08:26→17:09)
[2019-05-15] MEDS: BUMETANIDE 1 MG/4 ML VIAL IV SCH (08:27)
[2019-05-15] MEDS: ASPIRIN EC 81 MG TABLET.DR PO SCH (08:29)
[2019-05-15] MEDS: CULTURELLE CAPSULE PO SCH ×2 (08:31→21:04)
[2019-05-15] MEDS: GABAPENTIN 300 MG CAPSULE PO SCH (08:32)
[2019-05-15] MEDS: AMLODIPINE 5 MG TABLET PO SCH (08:32)
[2019-05-15] MEDS: CALCIUM CARB/VITAMIN D 500MG-200UNITS TABLET PO SCH ×2 (08:32→21:04)
[2019-05-15] MEDS: DOCUSATE SODIUM 100 MG CAPSULE PO SCH (08:32)
[2019-05-15] MEDS: FERROUS SULFATE 325 MG TABEC PO SCH (08:35)
[2019-05-15] MEDS: CLOTRIMAZOLE 1% CREAM 30 GM TUBE TOP SCH ×2 (08:36→17:09)
[2019-05-15] MEDS: PAROXETINE HCL 20 MG TABLET PO SCH (08:36)
[2019-05-15] MEDS: FLUTICASONE/VILANTEROL 1 EACH BLST.W.DEV IH SCH (08:37)
[2019-05-15] MEDS: FERROUS SULFATE 300 MG/5 ML LIQUID UDC PO SCH ×2 (08:47→17:08)
[2019-05-15] MEDS: HYDROCODONE/APAP 10-325 MG TABLET PO PRN (12:40)
[2019-05-15] MEDS: DOCUSATE SODIUM 100 MG/10 ML LIQUID UDC PO SCH (17:52)
[2019-05-15] MEDS: CEFEPIME HCL 1 G in IV DEXTROSE 5% 50 ML IV SCH (21:04)
[2019-05-15] MEDS: ATORVASTATIN 10 MG TABLET PO SCH (21:04)
[2019-05-16] MEDS: ALBUTEROL SULFATE 2.5 MG/ 0.5 ML NEBU NEB SCH ×4 (00:53→19:38)
[2019-05-16] MEDS: IPRATROPIUM BROMIDE 0.5 MG/2.5 ML NEBU NEB SCH ×4 (00:53→19:38)
[2019-05-16 04:00] VITALS: BP 113/46
[2019-05-16 05:13] LABS: CARBON DIOXIDE 29 mmol/L (21-32); CHLORIDE 107 mmol/L (98-107); GLUCOSE 164 mg/dL (74-106); MAGNESIUM 1.8 mg/dL (1.8-2.4); PHOSPHOROUS 3.5 mg/dL (2.5-4.9); POTASSIUM 3.5 mmol/L (3.5-5.1); UREA NITROGEN, BLOOD 38 mg/dL (7-18); VANCOMYCIN,RANDOM 23.9 ug/mL (18.0-26.0)
[2019-05-16 05:28] LABS: BASOPHILS % (AUTO) 0.5 % (0.0-2.0); EOSINOPHILS # (AUTO) 0.3 K/uL (0.0-0.7); EOSINOPHILS % (AUTO) 3.9 % (0.0-7.0); HEMOGLOBIN 7.7 g/dL (10.9-14.3); LYMPHOCYTES # (AUTO) 1.1 K/uL (20.0-40.0); LYMPHOCYTES % (AUTO) 16.8 % (20.5-51.5); MEAN CORPUSCULAR HEMOGLOBIN 31.2 uug (24.7-32.8); MEAN CORPUSCULAR HGB CONC 34 g/dL (32.3-35.6); MONOCYTES # (AUTO) 0.6 K/uL (2.0-10.0); MONOCYTES % (AUTO) 9.1 % (0.0-11.0); NEUTROPHILS # (AUTO) 4.7 K/uL (1.8-8.9); NEUTROPHILS % (AUTO) 69.7 % (38.5-71.5); PLATELET COUNT (AUTO) 232 K/uL (179-408); WHITE BLOOD COUNT (AUTO) 6.7 K/uL (3.8-11.8)
[2019-05-16 05:31] LABS: RED BLOOD CELL COUNT(AUTO) 2.48 MIL/uL (3.63-4.92)
[2019-05-16] MEDS: INSULIN REGULAR, HUMAN 300 UNIT/3 ML VIAL SQ PRN ×3 (06:32→16:31)
[2019-05-16] MEDS: BLOOD SUGAR DIAGNOSTIC 1 EACH STRIP VI SCH ×3 (06:32→16:29)
[2019-05-16] MEDS: LEVOTHYROXINE SODIUM 75 MCG TABLET PO SCH (06:35)
[2019-05-16] MEDS: CARVEDILOL 12.5 MG TABLET PO SCH ×2 (08:39→17:07)
[2019-05-16] MEDS: DOCUSATE SODIUM 100 MG/10 ML LIQUID UDC PO SCH ×2 (08:40→17:07)
[2019-05-16] MEDS: CULTURELLE CAPSULE PO SCH (08:40)
[2019-05-16] MEDS: BUMETANIDE 1 MG/4 ML VIAL IV SCH (08:40)
[2019-05-16] MEDS: FLUTICASONE/VILANTEROL 1 EACH BLST.W.DEV IH SCH (08:40)
[2019-05-16] MEDS: ASPIRIN EC 81 MG TABLET.DR PO SCH (08:41)
[2019-05-16] MEDS: CALCIUM CARB/VITAMIN D 500MG-200UNITS TABLET PO SCH (08:42)
[2019-05-16] MEDS: PAROXETINE HCL 20 MG TABLET PO SCH (08:42)
[2019-05-16] MEDS: GABAPENTIN 300 MG CAPSULE PO SCH (08:43)
[2019-05-16] MEDS: FERROUS SULFATE 300 MG/5 ML LIQUID UDC PO SCH ×2 (08:44→17:07)
[2019-05-16] MEDS: ACETAMINOPHEN 325 MG TABLET PO PRN ×2 (08:44→17:07)
[2019-05-16] MEDS: AMLODIPINE 5 MG TABLET PO SCH (08:44)
[2019-05-16] MEDS: CLOTRIMAZOLE 1% CREAM 30 GM TUBE TOP SCH ×2 (08:45→17:08)
[2019-05-16 11:35] VITALS: BP 123/88
[2019-05-16] MEDS ORDERED: CEFE1PIG3 IV (15:53)
[2019-05-16] MEDS ORDERED: GABA-534 PO (15:53)
[2019-05-16] MEDS ORDERED: RXVAN XX (15:53)
[2019-05-16] MEDS ORDERED: FURO40TA5 PO (15:53)
[2019-05-16] MEDS ORDERED: CARV12.52 PO (15:53)
[2019-05-16] MEDS ORDERED: ENOX40DI SQ (15:56)
[2019-05-16 15:57] VITALS: BP 145/48
[2019-05-16 17:07] VITALS: BP 161/47
[2019-05-17] MEDS ORDERED: FUROSEMIDE 40 MG TABLET PO SCH (09:00)
== END 2019-05-16 21:17 | DRG 480 ==
LOC: ER 14:00 → TELE3 15:41 → TELE-TD3 05-10 11:10 → CCU 05-10 15:55 → TELE3 05-16 07:50
PROVIDERS: ADMIT Internal Medicine Nephrology; ATTEND Internal Medicine
PROC: 30243N1 Transfusion of Nonautologous Red Blood Cells into Central Vein, Percutaneous Approach (ICD-10-PCS; principal; 2019-05-09)
PROC: 0QSC04Z Reposition Left Lower Femur with Internal Fixation Device, Open Approach (ICD-10-PCS; 2019-05-10)
PROC: 02HV33Z Insertion of Infusion Device into Superior Vena Cava, Percutaneous Approach (ICD-10-PCS; 2019-05-12)
DX: M97.12XA Periprosthetic fracture around internal prosthetic left knee joint, initial encounter (principal); N17.0 Acute kidney failure with tubular necrosis; I50.33 Acute on chronic diastolic (congestive) heart failure; A41.9 Sepsis, unspecified organism; I21.4 Non-ST elevation (NSTEMI) myocardial infarction; J18.9 Pneumonia, unspecified organism; S72.402A Unspecified fracture of lower end of left femur, initial encounter for closed fracture; I13.0 Hypertensive heart and chronic kidney disease with heart failure and stage 1 through stage 4 chronic kidney disease, or unspecified chronic kidney disease; J44.0 Chronic obstructive pulmonary disease with (acute) lower respiratory infection; N39.0 Urinary tract infection, site not specified; L03.314 Cellulitis of groin; W18.39XA Other fall on same level, initial encounter; Y93.B9 Activity, other involving muscle strengthening exercises; Y92.129 Unspecified place in nursing home as the place of occurrence of the external cause; N18.9 Chronic kidney disease, unspecified; D63.1 Anemia in chronic kidney disease; I25.2 Old myocardial infarction; I27.20 Pulmonary hypertension, unspecified; I49.3 Ventricular premature depolarization; I34.2 Nonrheumatic mitral (valve) stenosis; Z79.4 Long term (current) use of insulin; Z79.02 Long term (current) use of antithrombotics/antiplatelets; Z86.73 Personal history of transient ischemic attack (TIA), and cerebral infarction without residual deficits; Z79.899 Other long term (current) drug therapy; Z79.890 Hormone replacement therapy; E78.5 Hyperlipidemia, unspecified; D63.8 Anemia in other chronic diseases classified elsewhere; Z86.711 Personal history of pulmonary embolism; B96.89 Other specified bacterial agents as the cause of diseases classified elsewhere; E11.22 Type 2 diabetes mellitus with diabetic chronic kidney disease; E03.9 Hypothyroidism, unspecified; E66.9 Obesity, unspecified; Z68.38 Body mass index [BMI] 38.0-38.9, adult; Z86.79 Personal history of other diseases of the circulatory system; Z86.19 Personal history of other infectious and parasitic diseases
CPT/HCPCS: 36415; 70030-TC; 71045; 73503; 73560; 76770; 83690; 83735; 83970; 84100; 84156; 84300; 85018; 85025; 85730; 86850; 86900; 86901; 86920; 87040; 87086; 93005; 94640; 94664; A4649; A4663; G0378; J0690; J0692; J0696; J1170; J1650; J1815; J1940; J2250; J2270; J2405; J3010; J3370; J3480; J3490; J3590; J7030; J7040; J7050; J7060; J7512; P9016-BL; P9021

== ENCOUNTER 2019-10-12 15:55 | Inpatient (IN) | payer MEDICARE, OTHER ==
[~2019-10-12] VITALS: Ht 152.4 cm; Wt 80.7 kg
[2019-10-12 17:22] VITALS: BP 127/45
[2019-10-12] MEDS ORDERED: DEXTROSE 50% 50 ML DISP.SYRIN IV PRN (17:45)
[2019-10-12] MEDS ORDERED: GUAIFENESIN SUGAR FREE 100 MG/5 ML UDC PO PRN (18:45)
[2019-10-12] MEDS ORDERED: HYDROCODONE/APAP 5-325MG TABLET PO PRN (18:45)
[2019-10-12] MEDS ORDERED: GLUCOSE ORAL GEL 15 GM TUBE PO SCH (18:45)
[2019-10-12] MEDS ORDERED: BISACODYL 5 MG TABLET.DR PO PRN (18:45)
[2019-10-12] MEDS ORDERED: ZOLPIDEM 5 MG TABLET PO PRN (20:15)
[2019-10-12] MEDS: ALBUTEROL SULFATE 2.5 MG/ 0.5 ML NEBU IH SCH ×2 (20:17→23:07)
[2019-10-12] MEDS: hydrALAZINE HCL 50 MG TABLET PO SCH (21:27)
[2019-10-12] MEDS: BLOOD SUGAR DIAGNOSTIC 1 EACH STRIP VI SCH (21:31)
[2019-10-12] MEDS: INSULIN REGULAR, HUMAN 300 UNIT/3 ML VIAL SQ PRN (21:34)
[2019-10-12 22:14] VITALS: BP 128/51
[2019-10-12] MEDS ORDERED: LABETALOL HCL 100 MG TABLET ONE (22:36)
[2019-10-12] MEDS: LABETALOL HCL 200 MG TABLET PO SCH (23:03)
[2019-10-12] MEDS: IPRATROPIUM BROMIDE 0.5 MG/2.5 ML NEBU IH SCH (23:07)
[2019-10-13] MEDS: ALBUTEROL SULFATE 2.5 MG/ 0.5 ML NEBU IH SCH ×6 (02:42→23:30)
[2019-10-13] MEDS: IPRATROPIUM BROMIDE 0.5 MG/2.5 ML NEBU IH SCH ×6 (02:42→23:30)
[2019-10-13 05:12] VITALS: BP 151/63
[2019-10-13] MEDS: hydrALAZINE HCL 50 MG TABLET PO SCH ×3 (05:58→21:26)
[2019-10-13] MEDS: LABETALOL HCL 200 MG TABLET PO SCH ×3 (05:59→21:26)
[2019-10-13] MEDS: LEVOTHYROXINE SODIUM 75 MCG TABLET PO SCH (06:10)
[2019-10-13] MEDS: BLOOD SUGAR DIAGNOSTIC 1 EACH STRIP VI SCH ×4 (06:33→21:25)
[2019-10-13 07:56] VITALS: BP 123/45
[2019-10-13] MEDS ORDERED: HOME MED MISCELLANEOUS PO SCH (09:00)
[2019-10-13] MEDS ORDERED: PANTOPRAZOLE SODIUM 40 MG TABLET.DR PO SCH (09:00)
[2019-10-13] MEDS ORDERED: ENOXAPARIN SODIUM 40 MG/0.4 ML DISP.SYRIN SQ SCH (09:00)
[2019-10-13] MEDS: SIMETHICONE 80 MG TAB.CHEW PO SCH ×3 (09:17→17:40)
[2019-10-13] MEDS: SPIRONOLACTONE 25 MG TABLET PO SCH (09:18)
[2019-10-13] MEDS: METFORMIN HCL 500 MG TABLET PO SCH ×2 (09:20→17:40)
[2019-10-13] MEDS: ENOXAPARIN SODIUM 30 MG/0.3 ML DISP.SYRIN SUBCUT SCH (09:21)
[2019-10-13] MEDS: LINAGLIPTIN 5 MG TABLET PO SCH (09:25)
[2019-10-13] MEDS: BALSAM PERU/CASTOR OIL 60 GM OINT...G. TP SCH ×2 (09:27→17:41)
[2019-10-13] MEDS: CLOTRIMAZOLE 1% CREAM 30 GM TUBE TP SCH ×2 (09:27→17:41)
[2019-10-13] MEDS: NIFEdipine XL 30 MG TABSR PO SCH (09:36)
[2019-10-13] MEDS: LOSARTAN POTASSIUM 25 MG TABLET PO SCH (09:37)
[2019-10-13] MEDS: INSULIN REGULAR, HUMAN 300 UNIT/3 ML VIAL SQ PRN ×2 (11:58→21:32)
[2019-10-13 14:47] VITALS: BP 134/52
[2019-10-13 21:37] VITALS: BP 133/74
[2019-10-13 21:40] VITALS: BP 144/52
[2019-10-14] MEDS: IPRATROPIUM BROMIDE 0.5 MG/2.5 ML NEBU IH SCH ×6 (04:39→23:06)
[2019-10-14] MEDS: ALBUTEROL SULFATE 2.5 MG/ 0.5 ML NEBU IH SCH ×6 (04:39→23:06)
[2019-10-14] MEDS: LABETALOL HCL 200 MG TABLET PO SCH ×3 (05:19→21:02)
[2019-10-14] MEDS: hydrALAZINE HCL 50 MG TABLET PO SCH ×3 (05:20→21:02)
[2019-10-14 05:40] VITALS: BP 162/67
[2019-10-14] MEDS: LEVOTHYROXINE SODIUM 75 MCG TABLET PO SCH (06:03)
[2019-10-14] MEDS: PANTOPRAZOLE SODIUM 40 MG TABLET.DR PO SCH (06:33)
[2019-10-14] MEDS: BLOOD SUGAR DIAGNOSTIC 1 EACH STRIP VI SCH ×4 (06:35→20:20)
[2019-10-14 06:55] LABS: BASOPHILS % (AUTO) 0.5 % (0.0-2.0); EOSINOPHILS # (AUTO) 0.3 K/uL (0.0-0.7); EOSINOPHILS % (AUTO) 6.4 % (0.0-7.0); HEMATOCRIT 26.7 % (31.2-41.9); HEMOGLOBIN 8.9 g/dL (10.9-14.3); LYMPHOCYTES # (AUTO) 0.8 K/uL (20.0-40.0); LYMPHOCYTES % (AUTO) 15.5 % (20.5-51.5); MEAN CORPUSCULAR HEMOGLOBIN 31.9 uug (24.7-32.8); MEAN CORPUSCULAR HGB CONC 33 g/dL (32.3-35.6); MEAN CORPUSCULAR VOLUME 95.8 fL (75.5-95.3); MONOCYTES # (AUTO) 0.5 K/uL (2.0-10.0); MONOCYTES % (AUTO) 10.5 % (0.0-11.0); NEUTROPHILS # (AUTO) 3.3 K/uL (1.8-8.9); NEUTROPHILS % (AUTO) 67.1 % (38.5-71.5); PLATELET COUNT (AUTO) 175 K/uL (179-408); RED BLOOD CELL COUNT(AUTO) 2.79 MIL/uL (3.63-4.92); WHITE BLOOD COUNT (AUTO) 4.9 K/uL (3.8-11.8)
[2019-10-14 07:03] LABS: CARBON DIOXIDE 30 mmol/L (21-32); CHLORIDE 103 mmol/L (98-107); CREATININE 1.5 mg/dL (0.6-1.3); GLUCOSE 132 mg/dL (74-106); MAGNESIUM 1.9 mg/dL (1.8-2.4); PHOSPHOROUS 3.4 mg/dL (2.5-4.9); POTASSIUM 3.4 mmol/L (3.5-5.1); UREA NITROGEN, BLOOD 27 mg/dL (7-18)
[2019-10-14 07:12] LABS: IRON, SERUM 31 ug/dL (50-175)
[2019-10-14 08:28] VITALS: BP 125/36
[2019-10-14] MEDS: LOSARTAN POTASSIUM 25 MG TABLET PO SCH (09:00)
[2019-10-14] MEDS: BALSAM PERU/CASTOR OIL 60 GM OINT...G. TP SCH (09:00)
[2019-10-14] MEDS: METFORMIN HCL 500 MG TABLET PO SCH ×2 (09:12→17:19)
[2019-10-14] MEDS: SIMETHICONE 80 MG TAB.CHEW PO SCH ×3 (09:12→17:20)
[2019-10-14] MEDS: SPIRONOLACTONE 25 MG TABLET PO SCH (09:13)
[2019-10-14] MEDS: LINAGLIPTIN 5 MG TABLET PO SCH (09:13)
[2019-10-14] MEDS: NIFEdipine XL 30 MG TABSR PO SCH (09:21)
[2019-10-14] MEDS: INSULIN REGULAR, HUMAN 300 UNIT/3 ML VIAL SQ PRN ×2 (09:24→20:24)
[2019-10-14] MEDS: ENOXAPARIN SODIUM 30 MG/0.3 ML DISP.SYRIN SUBCUT SCH (09:32)
[2019-10-14] MEDS: CLOTRIMAZOLE 1% CREAM 30 GM TUBE TP SCH ×2 (09:34→17:29)
[2019-10-14] MEDS ORDERED: POTASSIUM CHLORIDE 10 MEQ TAB.PRT.SR PO ONE (11:15)
[2019-10-14] MEDS ORDERED: METHYL SALICYLATE/MENTHOL CREAM 28 GM TUBE TOP PRN (14:00)
[2019-10-14 16:13] VITALS: BP 144/52
[2019-10-14 19:50] VITALS: BP 145/52
[2019-10-14] MEDS: Z GUARD REMEDY PASTE 57 GM TUBE TOP SCH (20:20)
[2019-10-15] MEDS: IPRATROPIUM BROMIDE 0.5 MG/2.5 ML NEBU IH SCH ×6 (03:30→22:30)
[2019-10-15] MEDS: ALBUTEROL SULFATE 2.5 MG/ 0.5 ML NEBU IH SCH ×6 (03:30→22:30)
[2019-10-15 05:39] VITALS: BP 150/53
[2019-10-15] MEDS: hydrALAZINE HCL 50 MG TABLET PO SCH ×3 (06:09→21:30)
[2019-10-15] MEDS: LEVOTHYROXINE SODIUM 75 MCG TABLET PO SCH (06:09)
[2019-10-15] MEDS: LABETALOL HCL 200 MG TABLET PO SCH ×3 (06:10→21:31)
[2019-10-15] MEDS: PANTOPRAZOLE SODIUM 40 MG TABLET.DR PO SCH (06:31)
[2019-10-15] MEDS: BLOOD SUGAR DIAGNOSTIC 1 EACH STRIP VI SCH ×4 (06:32→21:20)
[2019-10-15] MEDS: ENOXAPARIN SODIUM 30 MG/0.3 ML DISP.SYRIN SUBCUT SCH (08:05)
[2019-10-15] MEDS: METFORMIN HCL 500 MG TABLET PO SCH ×2 (08:07→17:00)
[2019-10-15] MEDS: SPIRONOLACTONE 25 MG TABLET PO SCH (08:07)
[2019-10-15] MEDS: LINAGLIPTIN 5 MG TABLET PO SCH (08:07)
[2019-10-15] MEDS: NIFEdipine XL 30 MG TABSR PO SCH (08:07)
[2019-10-15] MEDS: SIMETHICONE 80 MG TAB.CHEW PO SCH ×3 (08:07→16:59)
[2019-10-15] MEDS: LOSARTAN POTASSIUM 25 MG TABLET PO SCH (08:08)
[2019-10-15] MEDS: Z GUARD REMEDY PASTE 57 GM TUBE TOP SCH ×2 (08:08→21:19)
[2019-10-15] MEDS: CLOTRIMAZOLE 1% CREAM 30 GM TUBE TP SCH ×2 (08:09→16:36)
[2019-10-15 08:10] VITALS: BP 143/53
[2019-10-15] MEDS: SOD FERRIC GLUC COMPLX/SUCROSE 125 MG in IV NORMAL SALINE 100 ML IV SCH (14:21)
[2019-10-15 14:26] VITALS: BP 145/46
[2019-10-15] MEDS: INSULIN REGULAR, HUMAN 300 UNIT/3 ML VIAL SQ PRN (17:07)
[2019-10-15 19:49] VITALS: BP 119/35
[2019-10-16] MEDS: IPRATROPIUM BROMIDE 0.5 MG/2.5 ML NEBU IH SCH ×6 (03:15→22:30)
[2019-10-16] MEDS: ALBUTEROL SULFATE 2.5 MG/ 0.5 ML NEBU IH SCH ×6 (03:15→22:30)
[2019-10-16] MEDS: hydrALAZINE HCL 50 MG TABLET PO SCH ×3 (05:33→21:39)
[2019-10-16] MEDS: LABETALOL HCL 200 MG TABLET PO SCH ×3 (05:33→21:40)
[2019-10-16] MEDS: LEVOTHYROXINE SODIUM 75 MCG TABLET PO SCH (06:25)
[2019-10-16] MEDS: PANTOPRAZOLE SODIUM 40 MG TABLET.DR PO SCH (06:31)
[2019-10-16] MEDS: BLOOD SUGAR DIAGNOSTIC 1 EACH STRIP VI SCH ×4 (06:32→20:53)
[2019-10-16 07:20] VITALS: BP 140/45
[2019-10-16 08:00] VITALS: BP 129/42
[2019-10-16] MEDS: METFORMIN HCL 500 MG TABLET PO SCH ×2 (09:08→17:49)
[2019-10-16] MEDS: SIMETHICONE 80 MG TAB.CHEW PO SCH ×3 (09:08→17:48)
[2019-10-16] MEDS: LOSARTAN POTASSIUM 25 MG TABLET PO SCH (09:10)
[2019-10-16] MEDS: LINAGLIPTIN 5 MG TABLET PO SCH (09:10)
[2019-10-16] MEDS: SPIRONOLACTONE 25 MG TABLET PO SCH (09:10)
[2019-10-16] MEDS: NIFEdipine XL 30 MG TABSR PO SCH (09:11)
[2019-10-16] MEDS: ENOXAPARIN SODIUM 30 MG/0.3 ML DISP.SYRIN SUBCUT SCH (09:15)
[2019-10-16] MEDS: CLOTRIMAZOLE 1% CREAM 30 GM TUBE TP SCH ×2 (09:23→17:49)
[2019-10-16] MEDS: Z GUARD REMEDY PASTE 57 GM TUBE TOP SCH ×2 (09:23→20:50)
[2019-10-16] MEDS: SOD FERRIC GLUC COMPLX/SUCROSE 125 MG in IV NORMAL SALINE 100 ML IV SCH (14:37)
[2019-10-16 16:00] VITALS: BP 144/47
[2019-10-16 20:22] VITALS: BP 155/56
[2019-10-16] MEDS: INSULIN REGULAR, HUMAN 300 UNIT/3 ML VIAL SQ PRN (20:55)
[2019-10-17] MEDS: IPRATROPIUM BROMIDE 0.5 MG/2.5 ML NEBU IH SCH ×6 (03:30→22:30)
[2019-10-17] MEDS: ALBUTEROL SULFATE 2.5 MG/ 0.5 ML NEBU IH SCH ×6 (03:30→22:30)
[2019-10-17 06:52] LABS: BASOPHILS % (AUTO) 0.5 % (0.0-2.0); EOSINOPHILS # (AUTO) 0.2 K/uL (0.0-0.7); EOSINOPHILS % (AUTO) 3.9 % (0.0-7.0); HEMATOCRIT 28.7 % (31.2-41.9); HEMOGLOBIN 9.6 g/dL (10.9-14.3); LYMPHOCYTES # (AUTO) 0.8 K/uL (20.0-40.0); LYMPHOCYTES % (AUTO) 12.7 % (20.5-51.5); MEAN CORPUSCULAR HEMOGLOBIN 31.9 uug (24.7-32.8); MEAN CORPUSCULAR HGB CONC 33 g/dL (32.3-35.6); MEAN CORPUSCULAR VOLUME 95.5 fL (75.5-95.3); MONOCYTES # (AUTO) 0.6 K/uL (2.0-10.0); MONOCYTES % (AUTO) 9.2 % (0.0-11.0); NEUTROPHILS # (AUTO) 4.4 K/uL (1.8-8.9); NEUTROPHILS % (AUTO) 73.7 % (38.5-71.5); PLATELET COUNT (AUTO) 215 K/uL (179-408)
[2019-10-17] MEDS: LABETALOL HCL 200 MG TABLET PO SCH ×3 (06:54→21:44)
[2019-10-17] MEDS: hydrALAZINE HCL 50 MG TABLET PO SCH ×3 (06:54→21:44)
[2019-10-17] MEDS: BLOOD SUGAR DIAGNOSTIC 1 EACH STRIP VI SCH ×4 (06:58→20:40)
[2019-10-17] MEDS: LEVOTHYROXINE SODIUM 75 MCG TABLET PO SCH (06:59)
[2019-10-17] MEDS: PANTOPRAZOLE SODIUM 40 MG TABLET.DR PO SCH (06:59)
[2019-10-17 07:01] VITALS: BP 170/66
[2019-10-17 07:01] LABS: CARBON DIOXIDE 29 mmol/L (21-32); CHLORIDE 101 mmol/L (98-107); CREATININE 1.5 mg/dL (0.6-1.3); GLUCOSE 115 mg/dL (74-106); PHOSPHOROUS 3.5 mg/dL (2.5-4.9); POTASSIUM 3.9 mmol/L (3.5-5.1); UREA NITROGEN, BLOOD 21 mg/dL (7-18)
[2019-10-17 08:57] VITALS: BP 164/58
[2019-10-17] MEDS: METFORMIN HCL 500 MG TABLET PO SCH ×2 (09:02→17:41)
[2019-10-17] MEDS: SIMETHICONE 80 MG TAB.CHEW PO SCH ×3 (09:03→17:41)
[2019-10-17] MEDS: LOSARTAN POTASSIUM 25 MG TABLET PO SCH (09:03)
[2019-10-17] MEDS: SPIRONOLACTONE 25 MG TABLET PO SCH (09:03)
[2019-10-17] MEDS: LINAGLIPTIN 5 MG TABLET PO SCH (09:03)
[2019-10-17] MEDS: NIFEdipine XL 30 MG TABSR PO SCH (09:03)
[2019-10-17] MEDS: ENOXAPARIN SODIUM 30 MG/0.3 ML DISP.SYRIN SUBCUT SCH (09:04)
[2019-10-17] MEDS: Z GUARD REMEDY PASTE 57 GM TUBE TOP SCH ×2 (09:05→20:40)
[2019-10-17] MEDS: CLOTRIMAZOLE 1% CREAM 30 GM TUBE TP SCH ×2 (09:09→17:41)
[2019-10-17] MEDS: INSULIN REGULAR, HUMAN 300 UNIT/3 ML VIAL SQ PRN ×2 (12:00→20:41)
[2019-10-17] MEDS: SOD FERRIC GLUC COMPLX/SUCROSE 125 MG in IV NORMAL SALINE 100 ML IV SCH (14:07)
[2019-10-17 19:47] VITALS: BP 152/58
[2019-10-18] MEDS: ALBUTEROL SULFATE 2.5 MG/ 0.5 ML NEBU IH SCH ×6 (03:30→23:30)
[2019-10-18] MEDS: IPRATROPIUM BROMIDE 0.5 MG/2.5 ML NEBU IH SCH ×6 (03:30→23:30)
[2019-10-18 05:07] VITALS: BP 162/59
[2019-10-18] MEDS: LABETALOL HCL 200 MG TABLET PO SCH ×3 (06:05→21:07)
[2019-10-18] MEDS: hydrALAZINE HCL 50 MG TABLET PO SCH ×3 (06:05→21:06)
[2019-10-18] MEDS: LEVOTHYROXINE SODIUM 75 MCG TABLET PO SCH (06:06)
[2019-10-18] MEDS: PANTOPRAZOLE SODIUM 40 MG TABLET.DR PO SCH (06:06)
[2019-10-18] MEDS: BLOOD SUGAR DIAGNOSTIC 1 EACH STRIP VI SCH ×4 (06:12→21:44)
[2019-10-18] MEDS: METFORMIN HCL 500 MG TABLET PO SCH ×2 (08:55→18:33)
[2019-10-18] MEDS: LINAGLIPTIN 5 MG TABLET PO SCH (08:55)
[2019-10-18] MEDS: SPIRONOLACTONE 25 MG TABLET PO SCH (08:55)
[2019-10-18] MEDS: SIMETHICONE 80 MG TAB.CHEW PO SCH ×3 (08:55→16:27)
[2019-10-18] MEDS: LOSARTAN POTASSIUM 25 MG TABLET PO SCH (08:56)
[2019-10-18] MEDS: NIFEdipine XL 30 MG TABSR PO SCH (08:56)
[2019-10-18] MEDS: ENOXAPARIN SODIUM 30 MG/0.3 ML DISP.SYRIN SUBCUT SCH (09:01)
[2019-10-18] MEDS: CLOTRIMAZOLE 1% CREAM 30 GM TUBE TP SCH ×2 (09:05→16:28)
[2019-10-18] MEDS: Z GUARD REMEDY PASTE 57 GM TUBE TOP SCH ×2 (09:05→21:15)
[2019-10-18] MEDS: INSULIN REGULAR, HUMAN 300 UNIT/3 ML VIAL SQ PRN ×4 (09:07→21:12)
[2019-10-18 12:20] VITALS: BP 132/42
[2019-10-18] MEDS: SOD FERRIC GLUC COMPLX/SUCROSE 125 MG in IV NORMAL SALINE 100 ML IV SCH (15:01)
[2019-10-18 15:40] VITALS: BP 159/63
[2019-10-18 22:17] VITALS: BP 165/78
[2019-10-19] MEDS: ALBUTEROL SULFATE 2.5 MG/ 0.5 ML NEBU IH SCH ×6 (03:37→23:20)
[2019-10-19] MEDS: IPRATROPIUM BROMIDE 0.5 MG/2.5 ML NEBU IH SCH ×6 (03:37→23:20)
[2019-10-19 04:00] VITALS: BP 144/51
[2019-10-19] MEDS: hydrALAZINE HCL 50 MG TABLET PO SCH ×3 (06:26→21:22)
[2019-10-19] MEDS: LEVOTHYROXINE SODIUM 75 MCG TABLET PO SCH (06:27)
[2019-10-19] MEDS: LABETALOL HCL 200 MG TABLET PO SCH ×3 (06:28→21:23)
[2019-10-19] MEDS: PANTOPRAZOLE SODIUM 40 MG TABLET.DR PO SCH (06:30)
[2019-10-19] MEDS: BLOOD SUGAR DIAGNOSTIC 1 EACH STRIP VI SCH ×4 (06:31→20:37)
[2019-10-19 08:29] VITALS: BP 130/46
[2019-10-19] MEDS: ACETAMINOPHEN 325 MG TABLET PO PRN ×2 (08:33→18:50)
[2019-10-19] MEDS: LOSARTAN POTASSIUM 25 MG TABLET PO SCH (08:34)
[2019-10-19] MEDS: NIFEdipine XL 30 MG TABSR PO SCH (08:35)
[2019-10-19] MEDS: LINAGLIPTIN 5 MG TABLET PO SCH (08:35)
[2019-10-19] MEDS: SPIRONOLACTONE 25 MG TABLET PO SCH (08:36)
[2019-10-19] MEDS: SIMETHICONE 80 MG TAB.CHEW PO SCH ×3 (08:36→16:08)
[2019-10-19] MEDS: METFORMIN HCL 500 MG TABLET PO SCH ×2 (08:36→18:00)
[2019-10-19] MEDS: ENOXAPARIN SODIUM 30 MG/0.3 ML DISP.SYRIN SUBCUT SCH (08:41)
[2019-10-19] MEDS: Z GUARD REMEDY PASTE 57 GM TUBE TOP SCH ×2 (08:42→21:23)
[2019-10-19] MEDS: CLOTRIMAZOLE 1% CREAM 30 GM TUBE TP SCH ×2 (08:42→16:08)
[2019-10-19] MEDS: INSULIN REGULAR, HUMAN 300 UNIT/3 ML VIAL SQ PRN ×2 (11:19→20:38)
[2019-10-19] MEDS: SOD FERRIC GLUC COMPLX/SUCROSE 125 MG in IV NORMAL SALINE 100 ML IV SCH (14:32)
[2019-10-19 15:53] LABS: BASOPHILS % (AUTO) 0.4 % (0.0-2.0); EOSINOPHILS # (AUTO) 0.2 K/uL (0.0-0.7); EOSINOPHILS % (AUTO) 2.8 % (0.0-7.0); HEMATOCRIT 24.8 % (31.2-41.9); HEMOGLOBIN 8.3 g/dL (10.9-14.3); LYMPHOCYTES # (AUTO) 0.7 K/uL (20.0-40.0); LYMPHOCYTES % (AUTO) 13.9 % (20.5-51.5); MEAN CORPUSCULAR HEMOGLOBIN 32.2 uug (24.7-32.8); MEAN CORPUSCULAR HGB CONC 34 g/dL (32.3-35.6); MEAN CORPUSCULAR VOLUME 95.9 fL (75.5-95.3); MONOCYTES # (AUTO) 0.5 K/uL (2.0-10.0); MONOCYTES % (AUTO) 9.4 % (0.0-11.0); NEUTROPHILS # (AUTO) 3.9 K/uL (1.8-8.9); NEUTROPHILS % (AUTO) 73.5 % (38.5-71.5); PLATELET COUNT (AUTO) 192 K/uL (179-408); RED BLOOD CELL COUNT(AUTO) 2.59 MIL/uL (3.63-4.92); WHITE BLOOD COUNT (AUTO) 5.4 K/uL (3.8-11.8)
[2019-10-19 16:03] LABS: ALANINE AMINOTRANSFERASE 15 U/L (14-59); ALKALINE PHOSPHATASE 104 U/L (50-136); ASPARTATE AMINOTRANSFERASE 15 U/L (15-37); BILIRUBIN,TOTAL 0.5 mg/dL (0.2-1.0); CARBON DIOXIDE 28 mmol/L (21-32); CHLORIDE 102 mmol/L (98-107); GLUCOSE 90 mg/dL (74-106); PHOSPHOROUS 3.6 mg/dL (2.5-4.9); POTASSIUM 4.9 mmol/L (3.5-5.1); TOTAL PROTEIN, SERUM 6.2 g/dL (6.4-8.2); UREA NITROGEN, BLOOD 32 mg/dL (7-18)
[2019-10-19 17:27] VITALS: BP 115/47
[2019-10-19 21:30] VITALS: BP 141/51
[2019-10-20] MEDS: IPRATROPIUM BROMIDE 0.5 MG/2.5 ML NEBU IH SCH ×6 (03:50→21:52)
[2019-10-20] MEDS: ALBUTEROL SULFATE 2.5 MG/ 0.5 ML NEBU IH SCH ×6 (03:50→21:52)
[2019-10-20 04:36] VITALS: BP 157/75
[2019-10-20] MEDS: hydrALAZINE HCL 50 MG TABLET PO SCH ×3 (06:06→20:38)
[2019-10-20] MEDS: LEVOTHYROXINE SODIUM 75 MCG TABLET PO SCH (06:06)
[2019-10-20] MEDS: LABETALOL HCL 200 MG TABLET PO SCH ×3 (06:06→20:38)
[2019-10-20] MEDS: BLOOD SUGAR DIAGNOSTIC 1 EACH STRIP VI SCH ×4 (06:32→20:42)
[2019-10-20] MEDS: PANTOPRAZOLE SODIUM 40 MG TABLET.DR PO SCH (07:00)
[2019-10-20] MEDS: SIMETHICONE 80 MG TAB.CHEW PO SCH ×3 (08:13→17:13)
[2019-10-20] MEDS: METFORMIN HCL 500 MG TABLET PO SCH ×2 (08:13→17:13)
[2019-10-20] MEDS: SPIRONOLACTONE 25 MG TABLET PO SCH (08:14)
[2019-10-20] MEDS: LINAGLIPTIN 5 MG TABLET PO SCH (08:14)
[2019-10-20] MEDS: ENOXAPARIN SODIUM 30 MG/0.3 ML DISP.SYRIN SUBCUT SCH (08:16)
[2019-10-20 08:22] VITALS: BP 140/48
[2019-10-20] MEDS: LOSARTAN POTASSIUM 25 MG TABLET PO SCH (08:22)
[2019-10-20] MEDS: CLOTRIMAZOLE 1% CREAM 30 GM TUBE TP SCH ×2 (09:33→17:13)
[2019-10-20] MEDS: Z GUARD REMEDY PASTE 57 GM TUBE TOP SCH ×2 (09:34→20:37)
[2019-10-20] MEDS: NIFEdipine XL 30 MG TABSR PO SCH (09:35)
[2019-10-20] MEDS: INSULIN REGULAR, HUMAN 300 UNIT/3 ML VIAL SQ PRN ×3 (12:00→20:43)
[2019-10-20 16:53] VITALS: BP 139/48
[2019-10-20 19:48] VITALS: BP 168/66
[2019-10-21] MEDS: IPRATROPIUM BROMIDE 0.5 MG/2.5 ML NEBU IH SCH ×6 (00:02→19:53)
[2019-10-21] MEDS: ALBUTEROL SULFATE 2.5 MG/ 0.5 ML NEBU IH SCH ×6 (00:02→19:54)
[2019-10-21 05:43] VITALS: BP 151/57
[2019-10-21] MEDS: hydrALAZINE HCL 50 MG TABLET PO SCH ×3 (06:05→21:54)
[2019-10-21] MEDS: PANTOPRAZOLE SODIUM 40 MG TABLET.DR PO SCH (06:05)
[2019-10-21] MEDS: LABETALOL HCL 200 MG TABLET PO SCH ×3 (06:05→21:54)
[2019-10-21] MEDS: LEVOTHYROXINE SODIUM 75 MCG TABLET PO SCH (06:05)
[2019-10-21] MEDS: BLOOD SUGAR DIAGNOSTIC 1 EACH STRIP VI SCH ×4 (06:10→20:18)
[2019-10-21] MEDS: ACETAMINOPHEN 325 MG TABLET PO PRN (09:00)
[2019-10-21] MEDS: NIFEdipine XL 30 MG TABSR PO SCH ×2 (09:00→17:00)
[2019-10-21] MEDS: SPIRONOLACTONE 25 MG TABLET PO SCH (09:00)
[2019-10-21] MEDS: LOSARTAN POTASSIUM 25 MG TABLET PO SCH ×2 (09:00→17:00)
[2019-10-21] MEDS: SIMETHICONE 80 MG TAB.CHEW PO SCH ×3 (09:00→17:37)
[2019-10-21] MEDS: METFORMIN HCL 500 MG TABLET PO SCH ×2 (09:01→17:38)
[2019-10-21] MEDS: LINAGLIPTIN 5 MG TABLET PO SCH (09:01)
[2019-10-21] MEDS: Z GUARD REMEDY PASTE 57 GM TUBE TOP SCH ×2 (09:03→20:13)
[2019-10-21] MEDS: CLOTRIMAZOLE 1% CREAM 30 GM TUBE TP SCH ×2 (09:03→17:37)
[2019-10-21] MEDS: ENOXAPARIN SODIUM 30 MG/0.3 ML DISP.SYRIN SUBCUT SCH (09:05)
[2019-10-21 09:08] LABS: BASOPHILS % (AUTO) 0.3 % (0.0-2.0); EOSINOPHILS # (AUTO) 0.1 K/uL (0.0-0.7); EOSINOPHILS % (AUTO) 2.1 % (0.0-7.0); HEMATOCRIT 26.1 % (31.2-41.9); HEMOGLOBIN 8.7 g/dL (10.9-14.3); LYMPHOCYTES # (AUTO) 0.6 K/uL (20.0-40.0); LYMPHOCYTES % (AUTO) 9.5 % (20.5-51.5); MEAN CORPUSCULAR HEMOGLOBIN 32.1 uug (24.7-32.8); MEAN CORPUSCULAR HGB CONC 33 g/dL (32.3-35.6); MEAN CORPUSCULAR VOLUME 96.4 fL (75.5-95.3); MONOCYTES # (AUTO) 0.5 K/uL (2.0-10.0); MONOCYTES % (AUTO) 8.8 % (0.0-11.0); NEUTROPHILS # (AUTO) 4.8 K/uL (1.8-8.9); NEUTROPHILS % (AUTO) 79.3 % (38.5-71.5); PLATELET COUNT (AUTO) 211 K/uL (179-408); RED BLOOD CELL COUNT(AUTO) 2.71 MIL/uL (3.63-4.92); WHITE BLOOD COUNT (AUTO) 6.1 K/uL (3.8-11.8)
[2019-10-21 09:31] LABS: ALANINE AMINOTRANSFERASE 18 U/L (14-59); ALKALINE PHOSPHATASE 110 U/L (50-136); ASPARTATE AMINOTRANSFERASE 16 U/L (15-37); BILIRUBIN,TOTAL 0.6 mg/dL (0.2-1.0); CARBON DIOXIDE 29 mmol/L (21-32); CHLORIDE 103 mmol/L (98-107); CREATININE 1.8 mg/dL (0.6-1.3); GLUCOSE 178 mg/dL (74-106); PHOSPHOROUS 3.6 mg/dL (2.5-4.9); POTASSIUM 4.8 mmol/L (3.5-5.1); TOTAL PROTEIN, SERUM 6.8 g/dL (6.4-8.2); UREA NITROGEN, BLOOD 32 mg/dL (7-18)
[2019-10-21] MEDS: INSULIN REGULAR, HUMAN 300 UNIT/3 ML VIAL SQ PRN ×3 (10:16→20:21)
[2019-10-21] MEDS: ASPIRIN 81 MG TAB.CHEW PO SCH (15:22)
[2019-10-21] MEDS: FUROSEMIDE 40 MG/4 ML VIAL IV SCH ×2 (15:22→20:26)
[2019-10-21 15:47] VITALS: BP 142/59
[2019-10-21 16:54] VITALS: BP 101/50
[2019-10-21 19:52] VITALS: BP 159/62
[2019-10-21] MEDS: ATORVASTATIN 20 MG TABLET PO SCH (20:13)
[2019-10-21 22:00] VITALS: BP 174/53
[2019-10-22] MEDS: ALBUTEROL SULFATE 2.5 MG/ 0.5 ML NEBU IH SCH ×6 (04:34→23:30)
[2019-10-22] MEDS: IPRATROPIUM BROMIDE 0.5 MG/2.5 ML NEBU IH SCH ×6 (04:34→23:30)
[2019-10-22 05:05] VITALS: BP 142/58
[2019-10-22] MEDS: hydrALAZINE HCL 50 MG TABLET PO SCH ×3 (06:15→21:01)
[2019-10-22] MEDS: PANTOPRAZOLE SODIUM 40 MG TABLET.DR PO SCH (06:16)
[2019-10-22] MEDS: LABETALOL HCL 200 MG TABLET PO SCH ×3 (06:16→21:00)
[2019-10-22] MEDS: LEVOTHYROXINE SODIUM 75 MCG TABLET PO SCH (06:16)
[2019-10-22] MEDS: BLOOD SUGAR DIAGNOSTIC 1 EACH STRIP VI SCH ×4 (06:21→20:59)
[2019-10-22 06:47] LABS: CARBON DIOXIDE 29 mmol/L (21-32); CHLORIDE 100 mmol/L (98-107); CREATININE 1.8 mg/dL (0.6-1.3); GLUCOSE 158 mg/dL (74-106); POTASSIUM 4.3 mmol/L (3.5-5.1); UREA NITROGEN, BLOOD 34 mg/dL (7-18)
[2019-10-22] MEDS: LOSARTAN POTASSIUM 25 MG TABLET PO SCH ×2 (09:45→18:12)
[2019-10-22] MEDS: METFORMIN HCL 500 MG TABLET PO SCH ×2 (09:45→18:13)
[2019-10-22] MEDS: SIMETHICONE 80 MG TAB.CHEW PO SCH ×3 (09:46→18:12)
[2019-10-22] MEDS: LINAGLIPTIN 5 MG TABLET PO SCH (09:47)
[2019-10-22] MEDS: ENOXAPARIN SODIUM 30 MG/0.3 ML DISP.SYRIN SUBCUT SCH (09:47)
[2019-10-22] MEDS: SPIRONOLACTONE 25 MG TABLET PO SCH (09:48)
[2019-10-22] MEDS: ASPIRIN 81 MG TAB.CHEW PO SCH (09:48)
[2019-10-22] MEDS: NIFEdipine XL 30 MG TABSR PO SCH ×2 (09:49→18:13)
[2019-10-22] MEDS: CLOTRIMAZOLE 1% CREAM 30 GM TUBE TP SCH ×2 (10:47→18:13)
[2019-10-22] MEDS: Z GUARD REMEDY PASTE 57 GM TUBE TOP SCH ×2 (10:47→20:59)
[2019-10-22] MEDS: INSULIN REGULAR, HUMAN 300 UNIT/3 ML VIAL SQ PRN ×2 (12:56→21:00)
[2019-10-22 15:30] VITALS: BP 139/48
[2019-10-22] MEDS ORDERED: FUROSEMIDE 40 MG/4 ML VIAL IV ONE (15:45)
[2019-10-22 20:17] VITALS: BP 144/46
[2019-10-22] MEDS: ATORVASTATIN 20 MG TABLET PO SCH (20:59)
[2019-10-23] MEDS: ALBUTEROL SULFATE 2.5 MG/ 0.5 ML NEBU IH SCH ×6 (03:30→23:30)
[2019-10-23] MEDS: IPRATROPIUM BROMIDE 0.5 MG/2.5 ML NEBU IH SCH ×6 (03:30→23:30)
[2019-10-23 04:15] VITALS: BP 123/42
[2019-10-23] MEDS: hydrALAZINE HCL 50 MG TABLET PO SCH ×3 (06:00→21:03)
[2019-10-23] MEDS: LABETALOL HCL 200 MG TABLET PO SCH ×4 (06:00→21:03)
[2019-10-23] MEDS: LEVOTHYROXINE SODIUM 75 MCG TABLET PO SCH (06:11)
[2019-10-23] MEDS: PANTOPRAZOLE SODIUM 40 MG TABLET.DR PO SCH (06:30)
[2019-10-23] MEDS: BLOOD SUGAR DIAGNOSTIC 1 EACH STRIP VI SCH ×4 (06:31→20:47)
[2019-10-23 08:54] LABS: CARBON DIOXIDE 31 mmol/L (21-32); CHLORIDE 99 mmol/L (98-107); CREATININE 1.9 mg/dL (0.6-1.3); GLUCOSE 202 mg/dL (74-106); POTASSIUM 4.3 mmol/L (3.5-5.1); UREA NITROGEN, BLOOD 40 mg/dL (7-18)
[2019-10-23] MEDS: METFORMIN HCL 500 MG TABLET PO SCH ×2 (09:01→17:34)
[2019-10-23] MEDS: ASPIRIN 81 MG TAB.CHEW PO SCH (09:01)
[2019-10-23] MEDS: SIMETHICONE 80 MG TAB.CHEW PO SCH ×4 (09:02→17:33)
[2019-10-23] MEDS: LOSARTAN POTASSIUM 25 MG TABLET PO SCH ×2 (09:02→17:16)
[2019-10-23] MEDS: NIFEdipine XL 30 MG TABSR PO SCH ×2 (09:02→17:33)
[2019-10-23] MEDS: LINAGLIPTIN 5 MG TABLET PO SCH (09:02)
[2019-10-23] MEDS: CLOTRIMAZOLE 1% CREAM 30 GM TUBE TP SCH ×2 (09:03→17:34)
[2019-10-23] MEDS: Z GUARD REMEDY PASTE 57 GM TUBE TOP SCH ×2 (09:03→20:47)
[2019-10-23] MEDS: ENOXAPARIN SODIUM 30 MG/0.3 ML DISP.SYRIN SUBCUT SCH (09:07)
[2019-10-23] MEDS: SPIRONOLACTONE 25 MG TABLET PO SCH (09:50)
[2019-10-23] MEDS ORDERED: ONDANSETRON ODT 4 MG TAB.RAPDIS SL PRN (14:30)
[2019-10-23 20:16] VITALS: BP 130/49
[2019-10-23] MEDS: ATORVASTATIN 20 MG TABLET PO SCH (20:47)
[2019-10-23] MEDS: INSULIN REGULAR, HUMAN 300 UNIT/3 ML VIAL SQ PRN (20:49)
[2019-10-23] MEDS: ACETAMINOPHEN 325 MG TABLET PO PRN (21:03)
[2019-10-24] MEDS: IPRATROPIUM BROMIDE 0.5 MG/2.5 ML NEBU IH SCH ×6 (04:10→23:02)
[2019-10-24] MEDS: ALBUTEROL SULFATE 2.5 MG/ 0.5 ML NEBU IH SCH ×6 (04:10→23:02)
[2019-10-24] MEDS: LABETALOL HCL 200 MG TABLET PO SCH ×3 (06:00→22:00)
[2019-10-24] MEDS: hydrALAZINE HCL 50 MG TABLET PO SCH ×3 (06:00→22:00)
[2019-10-24] MEDS: LEVOTHYROXINE SODIUM 75 MCG TABLET PO SCH (06:11)
[2019-10-24 06:19] VITALS: BP 125/42
[2019-10-24] MEDS: PANTOPRAZOLE SODIUM 40 MG TABLET.DR PO SCH (06:30)
[2019-10-24] MEDS: BLOOD SUGAR DIAGNOSTIC 1 EACH STRIP VI SCH ×4 (06:31→20:48)
[2019-10-24 07:16] LABS: BASOPHILS % (AUTO) 0.7 % (0.0-2.0); EOSINOPHILS # (AUTO) 0.1 K/uL (0.0-0.7); EOSINOPHILS % (AUTO) 2.8 % (0.0-7.0); HEMATOCRIT 23.9 % (31.2-41.9); LYMPHOCYTES # (AUTO) 0.8 K/uL (20.0-40.0); LYMPHOCYTES % (AUTO) 15.7 % (20.5-51.5); MEAN CORPUSCULAR HEMOGLOBIN 31.5 uug (24.7-32.8); MEAN CORPUSCULAR HGB CONC 33 g/dL (32.3-35.6); MEAN CORPUSCULAR VOLUME 94.6 fL (75.5-95.3); MONOCYTES # (AUTO) 0.6 K/uL (2.0-10.0); MONOCYTES % (AUTO) 12.2 % (0.0-11.0); NEUTROPHILS # (AUTO) 3.3 K/uL (1.8-8.9); NEUTROPHILS % (AUTO) 68.6 % (38.5-71.5); PLATELET COUNT (AUTO) 249 K/uL (179-408); RED BLOOD CELL COUNT(AUTO) 2.53 MIL/uL (3.63-4.92); WHITE BLOOD COUNT (AUTO) 4.8 K/uL (3.8-11.8)
[2019-10-24 07:32] LABS: ALANINE AMINOTRANSFERASE 18 U/L (14-59); ALKALINE PHOSPHATASE 126 U/L (50-136); ASPARTATE AMINOTRANSFERASE 18 U/L (15-37); BILIRUBIN,TOTAL 0.5 mg/dL (0.2-1.0); CARBON DIOXIDE 30 mmol/L (21-32); CHLORIDE 102 mmol/L (98-107); CREATININE 1.9 mg/dL (0.6-1.3); GLUCOSE 112 mg/dL (74-106); MAGNESIUM 2.1 mg/dL (1.8-2.4); PHOSPHOROUS 4.6 mg/dL (2.5-4.9); POTASSIUM 4.4 mmol/L (3.5-5.1); TOTAL PROTEIN, SERUM 6.7 g/dL (6.4-8.2); UREA NITROGEN, BLOOD 40 mg/dL (7-18)
[2019-10-24 08:00] VITALS: BP 112/46
[2019-10-24] MEDS: SPIRONOLACTONE 25 MG TABLET PO SCH (08:51)
[2019-10-24] MEDS: ASPIRIN 81 MG TAB.CHEW PO SCH (08:51)
[2019-10-24] MEDS: METFORMIN HCL 500 MG TABLET PO SCH ×2 (08:51→17:37)
[2019-10-24] MEDS: SIMETHICONE 80 MG TAB.CHEW PO SCH ×3 (08:52→17:33)
[2019-10-24] MEDS: LINAGLIPTIN 5 MG TABLET PO SCH (08:52)
[2019-10-24] MEDS: CLOTRIMAZOLE 1% CREAM 30 GM TUBE TP SCH ×2 (08:57→17:34)
[2019-10-24] MEDS: Z GUARD REMEDY PASTE 57 GM TUBE TOP SCH ×2 (08:57→20:57)
[2019-10-24] MEDS: ENOXAPARIN SODIUM 30 MG/0.3 ML DISP.SYRIN SUBCUT SCH (08:59)
[2019-10-24] MEDS: LOSARTAN POTASSIUM 25 MG TABLET PO SCH ×2 (08:59→17:34)
[2019-10-24] MEDS: NIFEdipine XL 30 MG TABSR PO SCH ×2 (09:00→17:33)
[2019-10-24] MEDS ORDERED: FUROSEMIDE 40 MG TABLET PO SCH (17:00)
[2019-10-24] MEDS ORDERED: FUROSEMIDE 20 MG TABLET PO SCH (17:00)
[2019-10-24 18:42] VITALS: BP 155/57
[2019-10-24 20:08] VITALS: BP 137/62
[2019-10-24] MEDS: ATORVASTATIN 20 MG TABLET PO SCH (20:41)
[2019-10-24] MEDS: INSULIN REGULAR, HUMAN 300 UNIT/3 ML VIAL SQ PRN (20:50)
[2019-10-25] MEDS: ALBUTEROL SULFATE 2.5 MG/ 0.5 ML NEBU IH SCH ×7 (02:39→23:30)
[2019-10-25] MEDS: IPRATROPIUM BROMIDE 0.5 MG/2.5 ML NEBU IH SCH ×7 (02:39→23:30)
[2019-10-25] MEDS: hydrALAZINE HCL 50 MG TABLET PO SCH ×3 (06:00→21:44)
[2019-10-25] MEDS: LABETALOL HCL 200 MG TABLET PO SCH ×3 (06:01→21:45)
[2019-10-25 06:03] VITALS: BP 158/66
[2019-10-25] MEDS: PANTOPRAZOLE SODIUM 40 MG TABLET.DR PO SCH (06:09)
[2019-10-25] MEDS: LEVOTHYROXINE SODIUM 75 MCG TABLET PO SCH (06:09)
[2019-10-25] MEDS: BLOOD SUGAR DIAGNOSTIC 1 EACH STRIP VI SCH ×4 (06:09→21:43)
[2019-10-25] MEDS: LINAGLIPTIN 5 MG TABLET PO SCH (08:54)
[2019-10-25] MEDS: METFORMIN HCL 500 MG TABLET PO SCH ×2 (08:54→17:38)
[2019-10-25] MEDS: ASPIRIN 81 MG TAB.CHEW PO SCH (08:55)
[2019-10-25] MEDS: LOSARTAN POTASSIUM 25 MG TABLET PO SCH ×2 (08:55→17:39)
[2019-10-25] MEDS: SIMETHICONE 80 MG TAB.CHEW PO SCH ×3 (08:56→17:38)
[2019-10-25] MEDS: NIFEdipine XL 30 MG TABSR PO SCH ×2 (08:58→17:39)
[2019-10-25] MEDS: SPIRONOLACTONE 25 MG TABLET PO SCH (08:58)
[2019-10-25] MEDS: CLOTRIMAZOLE 1% CREAM 30 GM TUBE TP SCH ×2 (08:59→17:39)
[2019-10-25] MEDS: Z GUARD REMEDY PASTE 57 GM TUBE TOP SCH ×2 (08:59→21:44)
[2019-10-25] MEDS: INSULIN REGULAR, HUMAN 300 UNIT/3 ML VIAL SQ PRN ×3 (09:04→21:45)
[2019-10-25] MEDS: ENOXAPARIN SODIUM 30 MG/0.3 ML DISP.SYRIN SUBCUT SCH (09:05)
[2019-10-25] MEDS: FUROSEMIDE 40 MG/4 ML VIAL IV SCH ×2 (09:33→21:42)
[2019-10-25] MEDS: ACETAMINOPHEN 325 MG TABLET PO PRN (11:27)
[2019-10-25 13:54] VITALS: BP 118/40
[2019-10-25 16:34] VITALS: BP 146/53
[2019-10-25 20:00] VITALS: BP 166/73
[2019-10-25] MEDS: ATORVASTATIN 20 MG TABLET PO SCH (21:45)
[2019-10-26] MEDS: IPRATROPIUM BROMIDE 0.5 MG/2.5 ML NEBU IH SCH ×6 (03:30→23:30)
[2019-10-26] MEDS: ALBUTEROL SULFATE 2.5 MG/ 0.5 ML NEBU IH SCH ×6 (03:30→23:30)
[2019-10-26 05:34] VITALS: BP 132/43
[2019-10-26] MEDS: LEVOTHYROXINE SODIUM 75 MCG TABLET PO SCH (06:13)
[2019-10-26] MEDS: PANTOPRAZOLE SODIUM 40 MG TABLET.DR PO SCH (06:13)
[2019-10-26] MEDS: LABETALOL HCL 200 MG TABLET PO SCH ×3 (06:13→21:41)
[2019-10-26] MEDS: hydrALAZINE HCL 50 MG TABLET PO SCH (06:16)
[2019-10-26] MEDS: BLOOD SUGAR DIAGNOSTIC 1 EACH STRIP VI SCH ×4 (06:21→20:29)
[2019-10-26 07:20] LABS: BASOPHILS % (AUTO) 0.6 % (0.0-2.0); EOSINOPHILS # (AUTO) 0.1 K/uL (0.0-0.7); EOSINOPHILS % (AUTO) 2.4 % (0.0-7.0); HEMATOCRIT 24.3 % (31.2-41.9); HEMOGLOBIN 8.3 g/dL (10.9-14.3); LYMPHOCYTES # (AUTO) 0.8 K/uL (20.0-40.0); LYMPHOCYTES % (AUTO) 13.6 % (20.5-51.5); MEAN CORPUSCULAR HEMOGLOBIN 31.8 uug (24.7-32.8); MEAN CORPUSCULAR HGB CONC 34 g/dL (32.3-35.6); MEAN CORPUSCULAR VOLUME 93.3 fL (75.5-95.3); MONOCYTES # (AUTO) 0.5 K/uL (2.0-10.0); MONOCYTES % (AUTO) 8.7 % (0.0-11.0); NEUTROPHILS # (AUTO) 4.2 K/uL (1.8-8.9); NEUTROPHILS % (AUTO) 74.7 % (38.5-71.5); PLATELET COUNT (AUTO) 285 K/uL (179-408); WHITE BLOOD COUNT (AUTO) 5.6 K/uL (3.8-11.8)
[2019-10-26 07:27] LABS: CARBON DIOXIDE 31 mmol/L (21-32); CHLORIDE 101 mmol/L (98-107); CREATININE 1.9 mg/dL (0.6-1.3); GLUCOSE 155 mg/dL (74-106); UREA NITROGEN, BLOOD 43 mg/dL (7-18)
[2019-10-26] MEDS: LOSARTAN POTASSIUM 25 MG TABLET PO SCH ×2 (09:00→17:00)
[2019-10-26] MEDS: NIFEdipine XL 30 MG TABSR PO SCH ×2 (09:00→17:00)
[2019-10-26] MEDS: SPIRONOLACTONE 25 MG TABLET PO SCH (09:11)
[2019-10-26] MEDS: METFORMIN HCL 500 MG TABLET PO SCH ×2 (09:11→17:59)
[2019-10-26] MEDS: ASPIRIN 81 MG TAB.CHEW PO SCH (09:12)
[2019-10-26] MEDS: Z GUARD REMEDY PASTE 57 GM TUBE TOP SCH ×2 (09:12→20:26)
[2019-10-26] MEDS: CLOTRIMAZOLE 1% CREAM 30 GM TUBE TP SCH ×2 (09:12→18:01)
[2019-10-26] MEDS: SIMETHICONE 80 MG TAB.CHEW PO SCH ×3 (09:12→17:59)
[2019-10-26] MEDS: LINAGLIPTIN 5 MG TABLET PO SCH (09:13)
[2019-10-26 09:30] VITALS: BP 125/49
[2019-10-26] MEDS ORDERED: FUROSEMIDE 40 MG/4 ML VIAL IV ONE (12:30)
[2019-10-26] MEDS ORDERED: FUROSEMIDE 20 MG/2 ML VIAL IV ONE (13:00)
[2019-10-26 13:19] LABS: PHOSPHOROUS 4.3 mg/dL (2.5-4.9)
[2019-10-26 19:58] VITALS: BP 160/56
[2019-10-26] MEDS: ATORVASTATIN 20 MG TABLET PO SCH (20:24)
[2019-10-26] MEDS: INSULIN REGULAR, HUMAN 300 UNIT/3 ML VIAL SQ PRN (20:42)
[2019-10-27] MEDS: IPRATROPIUM BROMIDE 0.5 MG/2.5 ML NEBU IH SCH ×4 (03:30→14:10)
[2019-10-27] MEDS: ALBUTEROL SULFATE 2.5 MG/ 0.5 ML NEBU IH SCH ×4 (03:30→14:11)
[2019-10-27 06:05] VITALS: BP 172/59
[2019-10-27] MEDS: LEVOTHYROXINE SODIUM 75 MCG TABLET PO SCH (06:07)
[2019-10-27] MEDS: LABETALOL HCL 200 MG TABLET PO SCH ×2 (06:07→13:11)
[2019-10-27] MEDS: PANTOPRAZOLE SODIUM 40 MG TABLET.DR PO SCH (06:07)
[2019-10-27] MEDS: BLOOD SUGAR DIAGNOSTIC 1 EACH STRIP VI SCH ×3 (06:10→16:19)
[2019-10-27 08:00] VITALS: BP 131/60
[2019-10-27] MEDS: SIMETHICONE 80 MG TAB.CHEW PO SCH ×3 (08:15→16:51)
[2019-10-27] MEDS: SPIRONOLACTONE 25 MG TABLET PO SCH (08:15)
[2019-10-27] MEDS: METFORMIN HCL 500 MG TABLET PO SCH ×2 (08:16→18:21)
[2019-10-27] MEDS: ASPIRIN 81 MG TAB.CHEW PO SCH (08:16)
[2019-10-27] MEDS: LINAGLIPTIN 5 MG TABLET PO SCH (08:16)
[2019-10-27] MEDS: CLOTRIMAZOLE 1% CREAM 30 GM TUBE TP SCH ×2 (08:17→16:52)
[2019-10-27] MEDS: Z GUARD REMEDY PASTE 57 GM TUBE TOP SCH (08:17)
[2019-10-27] MEDS: NIFEdipine XL 30 MG TABSR PO SCH ×2 (08:19→16:55)
[2019-10-27] MEDS: LOSARTAN POTASSIUM 25 MG TABLET PO SCH ×2 (08:20→16:52)
[2019-10-27] MEDS ORDERED: FUROSEMIDE 40 MG TABLET PO SCH (09:00)
[2019-10-27 16:00] VITALS: BP 141/46
[2019-10-27] MEDS: INSULIN REGULAR, HUMAN 300 UNIT/3 ML VIAL SQ PRN (16:22)
[2019-10-27 16:55] VITALS: BP 141/46
== END 2019-10-27 19:50 | disposition home health service (06) | DRG 189 ==
PROVIDERS: ADMIT Physical Medicine & Rehabilitation Pain Medicine; ATTEND Physical Medicine & Rehabilitation Pain Medicine
DX: J96.21 Acute and chronic respiratory failure with hypoxia (principal); I50.33 Acute on chronic diastolic (congestive) heart failure; I13.0 Hypertensive heart and chronic kidney disease with heart failure and stage 1 through stage 4 chronic kidney disease, or unspecified chronic kidney disease; N17.9 Acute kidney failure, unspecified; J96.22 Acute and chronic respiratory failure with hypercapnia; D64.9 Anemia, unspecified; E03.9 Hypothyroidism, unspecified; E11.22 Type 2 diabetes mellitus with diabetic chronic kidney disease; I25.2 Old myocardial infarction; J44.9 Chronic obstructive pulmonary disease, unspecified; N18.9 Chronic kidney disease, unspecified; Z79.4 Long term (current) use of insulin; Z86.73 Personal history of transient ischemic attack (TIA), and cerebral infarction without residual deficits; Z87.81 Personal history of (healed) traumatic fracture; Z87.891 Personal history of nicotine dependence; R53.1 Weakness; Z96.652 Presence of left artificial knee joint; I25.10 Atherosclerotic heart disease of native coronary artery without angina pectoris; I05.2 Rheumatic mitral stenosis with insufficiency; E11.42 Type 2 diabetes mellitus with diabetic polyneuropathy; E78.5 Hyperlipidemia, unspecified; I27.20 Pulmonary hypertension, unspecified; G72.89 Other specified myopathies; E66.9 Obesity, unspecified; G47.33 Obstructive sleep apnea (adult) (pediatric); R58 Hemorrhage, not elsewhere classified; Z82.49 Family history of ischemic heart disease and other diseases of the circulatory system; Z83.3 Family history of diabetes mellitus; Z88.8 Allergy status to other drugs, medicaments and biological substances
CPT/HCPCS: 36415; 71045; 83550; 83735; 84100; 85025; 94640; 94664; J1650; J1815; J1940; J2916; J3490; J3590; Q0162